=== PATIENT | female | born 1945 | race Caucasian/White ===

== ENCOUNTER 2016-11-05 12:56 | Outpatient (CLI) | payer MEDICARE, MEDICAID ==
[2016-11-05 17:59] LABS: BASOPHILS # (AUTO) 0.2 10^3/uL (0.0-0.1); BASOPHILS % (AUTO) 2.5 %; EOSINOPHILS # (AUTO) 0.7 10^3/uL (0.0-0.7); EOSINOPHILS % (AUTO) 8.9 %; HCT - HEMATOCRIT 39.8 % (37.0-47.0); HGB - HEMOGLOBIN 13.1 g/dL (12.0-16.0); LYMPHOCYTES # (AUTO) 2.1 10^3/uL (1.5-3.5); LYMPHOCYTES % (AUTO) 27.1 %; MEAN CORPUSCULAR HEMOGLOBIN 27.8 pg (27.0-31.0); MEAN CORPUSCULAR VOLUME 84.2 fL (81.0-99.0); MEAN PLATELET VOLUME 8.2 fL (7.9-10.8); MONOCYTES # (AUTO) 0.7 10^3/uL (0.0-1.0); NEUTROPHILS # (AUTO) 4.1 10^3/uL (1.5-6.6); NEUTROPHILS % (AUTO) 52.5 %; RED BLOOD COUNT 4.72 10^6/uL (4.20-5.40); RED CELL DISTRIBUTION WIDTH 15.6 % (12.0-15.0); UNCORRECTED WHITE BLOOD COUNT 7.7 x10^3/uL; WHITE BLOOD COUNT 7.7 x10^3/uL (4.8-10.8)
[2016-11-05 18:13] LABS: BILIRUBIN,TOTAL 0.7 mg/dL (0.2-1.0); BUN - BLOOD UREA NITROGEN 32 mg/dL (6-20); CALCIUM 9.3 mg/dL (8.5-10.3); CARBON DIOXIDE - CO2 27 mmol/L (21-32); CHLORIDE 102 mmol/L (101-111); CHOL/HDL RATIO 3.2 (<4.4); CHOLESTEROL 176 mg/dL; CREATININE 1.3 mg/dL (0.4-1.0); GFR - MDRD 40 (>89); GLUCOSE 100 mg/dL (70-100); HDL CHOLESTEROL 55 mg/dL; LDL/HDL RATIO 1.6 (<4.4); POTASSIUM 4.2 mmol/L (3.5-5.0); SODIUM 138 mmol/L (135-145); TOTAL PROTEIN 7.1 g/dL (6.7-8.2); TRIGLYCERIDES 165 mg/dL; URIC ACID 7.3 mg/dL (2.6-7.2); VLDL CHOLESTEROL 33 mg/dL
[2016-11-05 18:31] LABS: HEMOGLOBIN A1C 0.72 g/dL
== END 2016-11-05 12:57 | disposition home or self-care (01) ==
LOC: LAB.F 12:56
PROVIDERS: ATTEND Internal Medicine
DX: E11.9 Type 2 diabetes mellitus without complications (principal); N20.0 Calculus of kidney; Z79.01 Long term (current) use of anticoagulants
CPT/HCPCS: 36415; 80053; 80061; 83036; 84443; 84550; 85025; 85610

== ENCOUNTER 2016-11-12 14:53 | Outpatient (CLI) | payer MEDICARE, MEDICAID | END 2016-11-12 14:54 | disposition home or self-care (01) | LOC: LAB.F 14:53 | PROVIDERS: ATTEND Internal Medicine | DX: Z79.01 Long term (current) use of anticoagulants (principal) | CPT/HCPCS: 85610 ==

== ENCOUNTER 2016-12-12 14:09 | Outpatient (CLI) | payer MEDICARE, MEDICAID ==
[2016-12-12 18:53] LABS: BUN - BLOOD UREA NITROGEN 43 mg/dL (6-20); CALCIUM 9.4 mg/dL (8.5-10.3); CARBON DIOXIDE - CO2 23 mmol/L (21-32); CHLORIDE 109 mmol/L (101-111); CHOL/HDL RATIO 3.8 (<4.4); CHOLESTEROL 204 mg/dL; CREATININE 1.3 mg/dL (0.4-1.0); GFR - MDRD 40 (>89); GLUCOSE 114 mg/dL (70-100); HDL CHOLESTEROL 54 mg/dL; LDL/HDL RATIO 1.9 (<4.4); POTASSIUM 4.2 mmol/L (3.5-5.0); SODIUM 139 mmol/L (135-145); TRIGLYCERIDES 234 mg/dL; URIC ACID 5.7 mg/dL (2.6-7.2); VLDL CHOLESTEROL 47 mg/dL
== END 2016-12-12 14:10 | disposition home or self-care (01) ==
LOC: LAB.F 14:09
PROVIDERS: ATTEND Internal Medicine
DX: N18.3 Chronic kidney disease, stage 3 (moderate) (principal); Z79.01 Long term (current) use of anticoagulants; E78.00 Pure hypercholesterolemia, unspecified; E55.9 Vitamin D deficiency, unspecified; E53.8 Deficiency of other specified B group vitamins; N20.0 Calculus of kidney
CPT/HCPCS: 36415; 80048; 80061; 82306; 82607; 84550; 85610

== ENCOUNTER 2016-12-22 12:46 | Outpatient (CLI) | payer MEDICARE, MEDICAID | END 2016-12-22 12:47 | disposition home or self-care (01) | LOC: LAB.F 12:46 | PROVIDERS: ATTEND Internal Medicine | DX: Z79.01 Long term (current) use of anticoagulants (principal) | CPT/HCPCS: 85610 ==

== ENCOUNTER 2017-01-12 14:18 | Outpatient (CLI) | payer MEDICARE, MEDICAID ==
[2017-01-12 19:15] LABS: CALCIUM 9.1 mg/dL (8.5-10.3); CREATININE 1.2 mg/dL (0.4-1.0); POTASSIUM 4.1 mmol/L (3.5-5.0); URIC ACID 4.1 mg/dL (2.6-7.2)
[2017-01-12 19:27] LABS: HEMOGLOBIN A1C 0.8 g/dL
== END 2017-01-12 14:19 | disposition home or self-care (01) ==
LOC: LAB.F 14:18
PROVIDERS: ATTEND Internal Medicine
DX: I10 Essential (primary) hypertension (principal); Z79.01 Long term (current) use of anticoagulants; E11.9 Type 2 diabetes mellitus without complications; N20.0 Calculus of kidney
CPT/HCPCS: 36415; 80048; 83036; 84550; 85610

== ENCOUNTER 2017-02-16 14:03 | Outpatient (CLI) | payer MEDICARE, MEDICAID | END 2017-02-16 14:04 | disposition home or self-care (01) | LOC: LAB.F 14:03 | PROVIDERS: ATTEND Internal Medicine | DX: N20.0 Calculus of kidney (principal); Z79.01 Long term (current) use of anticoagulants | CPT/HCPCS: 36415; 84550; 85610 ==

== ENCOUNTER 2017-03-23 13:39 | Outpatient (CLI) | payer MEDICARE, MEDICAID ==
[2017-03-23 18:30] LABS: INR 6.9 (0.8-1.2)
== END 2017-03-23 13:40 | disposition home or self-care (01) ==
LOC: LAB.F 13:39
PROVIDERS: ATTEND Physician Assistant Medical
DX: I48.91 Unspecified atrial fibrillation (principal); Z79.01 Long term (current) use of anticoagulants
CPT/HCPCS: 36415; 85610

== ENCOUNTER 2017-03-27 13:59 | Outpatient (CLI) | payer MEDICARE, MEDICAID | END 2017-03-27 14:00 | disposition home or self-care (01) | LOC: LAB.F 13:59 | PROVIDERS: ATTEND Physician Assistant Medical | DX: I48.91 Unspecified atrial fibrillation (principal); Z79.01 Long term (current) use of anticoagulants | CPT/HCPCS: 85610 ==

== ENCOUNTER 2017-04-01 12:41 | Outpatient (CLI) | payer MEDICARE, MEDICAID | END 2017-04-01 12:42 | disposition home or self-care (01) | LOC: LAB.F 12:41 | PROVIDERS: ATTEND Physician Assistant Medical | DX: I48.91 Unspecified atrial fibrillation (principal); Z79.01 Long term (current) use of anticoagulants | CPT/HCPCS: 85610 ==

== ENCOUNTER 2017-04-06 12:46 | Outpatient (CLI) | payer MEDICARE, MEDICAID | END 2017-04-06 12:47 | disposition home or self-care (01) | LOC: LAB.F 12:46 | PROVIDERS: ATTEND Physician Assistant Medical | DX: I48.91 Unspecified atrial fibrillation (principal); Z79.01 Long term (current) use of anticoagulants | CPT/HCPCS: 85610 ==

== ENCOUNTER 2017-04-10 12:57 | Outpatient (CLI) | payer MEDICARE, MEDICAID | END 2017-04-10 12:58 | disposition home or self-care (01) | LOC: LAB.F 12:57 | PROVIDERS: ATTEND Physician Assistant Medical | DX: I48.91 Unspecified atrial fibrillation (principal); Z79.01 Long term (current) use of anticoagulants | CPT/HCPCS: 85610 ==

== ENCOUNTER 2017-04-30 13:35 | Outpatient (CLI) | payer MEDICARE, MEDICAID | END 2017-04-30 13:36 | disposition home or self-care (01) | LOC: LAB.F 13:35 | PROVIDERS: ATTEND Physician Assistant Medical | DX: I48.91 Unspecified atrial fibrillation (principal); Z79.01 Long term (current) use of anticoagulants | CPT/HCPCS: 85610 ==

== ENCOUNTER 2017-05-11 13:30 | Outpatient (CLI) | payer MEDICAID, MEDICARE | END 2017-05-11 13:31 | disposition home or self-care (01) | LOC: LAB.F 13:30 | PROVIDERS: ATTEND Physician Assistant Medical | DX: I48.91 Unspecified atrial fibrillation (principal); Z79.01 Long term (current) use of anticoagulants | CPT/HCPCS: 85610 ==

== ENCOUNTER 2017-06-11 12:25 | Outpatient (CLI) | payer MEDICARE | END 2017-06-11 12:26 | disposition home or self-care (01) | LOC: LAB.F 12:25 | PROVIDERS: ATTEND Physician Assistant Medical | DX: Z79.01 Long term (current) use of anticoagulants (principal); I48.91 Unspecified atrial fibrillation | CPT/HCPCS: 85610 ==

== ENCOUNTER 2017-06-24 14:30 | Outpatient (CLI) | payer MEDICARE ==
[2017-06-24 17:20] LABS: BILIRUBIN,URINE NEGATIVE (NEGATIVE); GLUCOSE, URINE (UA) NEGATIVE (NEGATIVE); KETONES,URINE (UA) NEGATIVE (NEGATIVE); LEUKOCYTE ESTERASE, URINE SMALL (NEGATIVE); NITRITE,URINE POSITIVE (NEGATIVE); OCCULT BLOOD,URINE TRACE-LYSE (NEGATIVE); PH,URINE 5.5 PH (5.0-7.5); PROTEIN,URINE 30 mg/dL (NEGATIVE); UROBILINOGEN,URINE 0.2 (NORMAL) E.U./dL (NORMAL)
[2017-06-24 17:23] LABS: CLARITY,URINE CLEAR (CLEAR)
[2017-06-24 17:34] LABS: BACTERIA,URINE Moderate /HPF (None Seen); EPITHELIAL CELLS,UR FEW Transitional /HPF (<= Few); RBC,URINE 0-5 /HPF (0-5); SQUAMOUS EPITHELIAL CELL,UR MOD Squamous (<= Few); WBC CLUMPS,URINE PRESENT
[2017-06-24 18:13] LABS: CREATININE,URINE 98.3 mg/dL; MICROALBUM/CREATININE RATIO,UR 362.2 ug/mg (<30.0); MICROALBUMIN,URINE 35.6 mg/dL (0-300.0)
== END 2017-06-24 14:31 | disposition home or self-care (01) ==
LOC: LAB.R 14:30
PROVIDERS: ATTEND Physician Assistant Medical
DX: N39.0 Urinary tract infection, site not specified (principal); E11.9 Type 2 diabetes mellitus without complications
CPT/HCPCS: 81001; 82043; 82570; 87086

== ENCOUNTER 2017-07-09 14:48 | Outpatient (CLI) | payer MEDICARE ==
[2017-07-09 17:40] LABS: CALCIUM 9.8 mg/dL (8.5-10.3); CREATININE 1.5 mg/dL (0.4-1.0)
[2017-07-09 18:28] LABS: HB2 TOTAL 13.7 g/dL; HEMOGLOBIN A1C 0.92 g/dL; HEMOGLOBIN A1C % 8.3 % (4.6-6.2)
== END 2017-07-09 14:49 | disposition home or self-care (01) ==
LOC: LAB.F 14:48
PROVIDERS: ATTEND Physician Assistant Medical
DX: I48.91 Unspecified atrial fibrillation (principal); Z79.01 Long term (current) use of anticoagulants; E11.22 Type 2 diabetes mellitus with diabetic chronic kidney disease; N18.3 Chronic kidney disease, stage 3 (moderate); N39.0 Urinary tract infection, site not specified
CPT/HCPCS: 36415; 80048; 81001; 82043; 82570; 83036; 85610; 87086

== ENCOUNTER 2017-07-10 13:19 | Outpatient (CLI) | payer MEDICARE ==
[2017-07-10 17:21] LABS: BILIRUBIN,URINE NEGATIVE (NEGATIVE); GLUCOSE, URINE (UA) NEGATIVE (NEGATIVE); KETONES,URINE (UA) NEGATIVE (NEGATIVE); LEUKOCYTE ESTERASE, URINE SMALL (NEGATIVE); NITRITE,URINE POSITIVE (NEGATIVE); OCCULT BLOOD,URINE NEGATIVE (NEGATIVE); PH,URINE 5.5 PH (5.0-7.5); PROTEIN,URINE 30 mg/dL (NEGATIVE); UROBILINOGEN,URINE 0.2 (NORMAL) E.U./dL (NORMAL)
[2017-07-10 17:27] LABS: CLARITY,URINE HAZY (CLEAR)
[2017-07-10 17:39] LABS: BACTERIA,URINE Moderate /HPF (None Seen); RBC,URINE None Seen /HPF (0-5); SQUAMOUS EPITHELIAL CELL,UR FEW Squamous (<= Few)
== END 2017-07-10 13:20 | disposition home or self-care (01) ==
LOC: LAB.F 13:19
PROVIDERS: ATTEND Physician Assistant Medical
DX: N39.0 Urinary tract infection, site not specified (principal)
CPT/HCPCS: 81001; 87086

== ENCOUNTER 2017-07-16 14:34 | Outpatient (CLI) | payer MEDICARE | END 2017-07-16 14:35 | disposition home or self-care (01) | LOC: LAB.F 14:34 | PROVIDERS: ATTEND Physician Assistant Medical | DX: I48.91 Unspecified atrial fibrillation (principal); Z79.01 Long term (current) use of anticoagulants | CPT/HCPCS: 85610 ==

== ENCOUNTER 2017-07-23 10:07 | Outpatient (CLI) | payer MEDICARE | END 2017-07-23 10:08 | disposition home or self-care (01) | LOC: LAB.F 10:07 | PROVIDERS: ATTEND Physician Assistant Medical | DX: I48.91 Unspecified atrial fibrillation (principal); Z79.01 Long term (current) use of anticoagulants | CPT/HCPCS: 85610 ==

== ENCOUNTER 2017-08-05 14:38 | Outpatient (CLI) | payer MEDICARE | END 2017-08-05 14:39 | disposition home or self-care (01) | LOC: LAB.F 14:38 | PROVIDERS: ATTEND Physician Assistant Medical | DX: I48.91 Unspecified atrial fibrillation (principal); Z79.01 Long term (current) use of anticoagulants | CPT/HCPCS: 85610 ==

== ENCOUNTER 2017-09-10 13:32 | Outpatient (CLI) | payer MEDICAID, MEDICARE ==
[2017-09-10 18:48] LABS: HB2 TOTAL 12.4 g/dL; HEMOGLOBIN A1C 0.81 g/dL; HEMOGLOBIN A1C % 8.1 % (4.6-6.2)
== END 2017-09-10 13:33 | disposition home or self-care (01) ==
LOC: LAB.F 13:32
PROVIDERS: ATTEND Physician Assistant Medical
DX: I48.91 Unspecified atrial fibrillation (principal); E11.49 Type 2 diabetes mellitus with other diabetic neurological complication; Z79.01 Long term (current) use of anticoagulants
CPT/HCPCS: 36415; 83036; 85610

== ENCOUNTER 2017-10-01 06:09 | Day surgery (SDC) | payer MEDICARE, MEDICAID ==
[2017-10-01] MEDS ORDERED: TIMOLOL 0.5% OPHTH DROPS EACHEYE ONE (06:10)
[2017-10-01] MEDS ORDERED: BRIMONIDINE 0.2% OPHTH DROPS 5 ML EACHEYE ONE (06:10)
[2017-10-01] MEDS ORDERED: CYCLOPENTOLATE 1% OPHTH DROPS 2 ML ONE (06:41)
[2017-10-01] MEDS ORDERED: PHENYLEPHRINE 2.5% OPHTH 2 ML DROPS ONE (06:41)
[2017-10-01] MEDS ORDERED: PROPARACAINE 0.5% OPHTH DROPS 15 ML ONE (06:41)
[2017-10-01] MEDS ORDERED: KETOROLAC 0.45% OPHTH DROPS ONE (06:41)
[2017-10-01] MEDS ORDERED: LACTATED RINGERS 500 ML IV ONE (07:07)
[2017-10-01] MEDS ORDERED: EPINEPHrine 1 MG/ML AMP ONE (07:28)
[2017-10-01] MEDS ORDERED: EPINEPHrine 1 MG/ML AMP IVP ONE (07:37)
[2017-10-01] MEDS ORDERED: BRIMONIDINE 0.2% OPHTH DROPS 5 ML OPTH ONE (07:37)
[2017-10-01] MEDS ORDERED: TRIAMCIN/MOXIFLOX/VANCO 1 ML VIAL IO ONE ×2 (07:38)
[2017-10-01] MEDS ORDERED: BSS/LIDOCAINE/EPINEPHRINE 1 ML SYRINGE IO ONE ×2 (07:38)
[2017-10-01] MEDS ORDERED: CHONDR SULF/HYALURONATE SYRINGE IO ONE (07:38)
[2017-10-01] MEDS ORDERED: TIMOLOL 0.5% OPHTH DROPS OPTH ONE (07:38)
[2017-10-01] MEDS ORDERED: PROPARACAINE 0.5% OPHTH DROPS 15 ML RIGHTEYE ONE (07:39)
[2017-10-01] MEDS ORDERED: MIDAZOLAM 2 MG/2 ML VIAL IVP ONE (07:40)
[2017-10-01 08:11] VITALS: BP 164/61
--- NOTE | 2017-10-01 10:06 | OPERATIVE REPORT ---
DATE OF SERVICE: 10/01/2017 Physician: Luigi Sin MD PREOPERATIVE DIAGNOSIS: Visually significant cataract, right eye. This was her first cataract surgery. POSTOPERATIVE DIAGNOSIS: Visually significant cataract, right eye. This was her first cataract surgery. NAME OF PROCEDURE: Phacoemulsification with posterior chamber intraocular lens implant, right eye. SURGEON: Luigi Sin M.D. ANESTHESIA: Monitored anesthesia care. COMPLICATIONS: None. OPERATIVE INDICATIONS: This is a 72-year-old woman with progressive vision loss in the right eye due to 3+ nuclear sclerotic and vacuole cataract. Best corrected visual acuity was 20/125 with glare to 20/160 in the right eye. INDICATIONS FOR SURGERY: Overall decrease in vision, difficulty seeing words on a computer screens, difficulty reading, difficulty seeing street signs, difficulty driving in low light or at night, difficulty driving at night because of headlights from other vehicles. She was consented at length concerning risks and benefits of cataract surgery, after which she expressed a desire to proceed with surgery. OPERATIVE PROCEDURE: The patient was taken to OR #3 and placed under monitored anesthesia care. A surgical timeout was conducted confirming correct patient, correct procedure, and correct surgical site. She was given topical anesthesia, and prepped and draped in usual sterile fashion. The eye was entered at the 12 and 9 o'clock positions. Intracameral Shugarcaine was injected into the anterior chamber, followed by Viscoat. A continuous-tear curvilinear capsulorrhexis was performed. Nucleus was hydrodissected and phacoemulsified. The cortex was evacuated using automated infusion aspiration. Provisc was injected in the capsular bag, and a 26.0 diopter intraocular lens was inserted into the bag. Approximately 0.7 mL of a mixture of triamcinolone and moxifloxacin was injected subconjunctivally in the superior quadrant for infection and inflammation prophylaxis. I and A was used to evacuate the viscoelastic materials. The eye was inflated to physiologic pressure using balanced salt solution and found to be watertight. The patient was taken from the operating room in good condition and given postoperative instructions. TD: 10/01/2017 08:07
== END 2017-10-01 06:10 | disposition home or self-care (01) ==
LOC: SDS 06:09
PROVIDERS: ATTEND Ophthalmology
PROC: 08RJ3JZ Replacement of Right Lens with Synthetic Substitute, Percutaneous Approach (ICD-10-PCS; principal; 2017-10-01 07:30)
DX: H25.811 Combined forms of age-related cataract, right eye (principal); E11.9 Type 2 diabetes mellitus without complications; I10 Essential (primary) hypertension; I48.91 Unspecified atrial fibrillation; J44.9 Chronic obstructive pulmonary disease, unspecified; Z79.01 Long term (current) use of anticoagulants; Z87.442 Personal history of urinary calculi; F01.50 Vascular dementia, unspecified severity, without behavioral disturbance, psychotic disturbance, mood disturbance, and anxiety
CPT/HCPCS: 66984; A9270; J3490; V2632

== ENCOUNTER 2017-10-15 08:00 | Outpatient (CLI) | payer MEDICAID, MEDICARE | END 2017-10-15 08:01 | disposition home or self-care (01) | LOC: LAB.F 08:00 | PROVIDERS: ATTEND Physician Assistant Medical | DX: I48.91 Unspecified atrial fibrillation (principal); Z79.01 Long term (current) use of anticoagulants | CPT/HCPCS: 85610 ==

== ENCOUNTER 2017-11-09 14:30 | Outpatient (CLI) | payer MEDICARE, MEDICAID | END 2017-11-09 14:31 | disposition home or self-care (01) | LOC: LAB.F 14:30 | PROVIDERS: ATTEND Physician Assistant Medical | DX: I48.91 Unspecified atrial fibrillation (principal); Z79.01 Long term (current) use of anticoagulants | CPT/HCPCS: 85610 ==

== ENCOUNTER 2017-11-19 07:22 | Day surgery (SDC) | payer MEDICARE, MEDICAID ==
[~2017-11-19 07:22] MED LIST: CYCLOPENTOLATE 1% OPHTH DROPS 2 ML ONE; KETOROLAC 0.45% OPHTH DROPS ONE; PHENYLEPHRINE 2.5% OPHTH 2 ML DROPS ONE; PROPARACAINE 0.5% OPHTH DROPS 15 ML ONE
[2017-11-19] MEDS ORDERED: TIMOLOL 0.5% OPHTH DROPS ONE (07:24)
[2017-11-19] MEDS ORDERED: VANCOMYCIN OPHTHALMI 8MG/0.8ML 8 MG/0.8 ML SYRINGE IO ONE (07:24)
[2017-11-19] MEDS ORDERED: BRIMONIDINE 0.2% OPHTH DROPS 5 ML ONE (07:24)
[2017-11-19] MEDS ORDERED: EPINEPHrine 1 MG/ML AMP ONE (07:24)
[2017-11-19] MEDS ORDERED: BSS/LIDOCAINE/EPINEPHRINE 1 ML SYRINGE ONE (07:24)
[2017-11-19] MEDS ORDERED: TRIAMCIN/MOXIFLOX OPHTHALMIC 0.6 ML VIAL IO ONE (07:24)
[2017-11-19] MEDS ORDERED: PHENYLEPHRINE 2.5% OPHTH 2 ML DROPS LEFTEYE ONE ×2 (07:51→08:05)
[2017-11-19] MEDS ORDERED: PROPARACAINE 0.5% OPHTH DROPS 15 ML LEFTEYE ONE ×3 (07:51→08:38)
[2017-11-19] MEDS ORDERED: LACTATED RINGERS 500 ML IV ONE ×2 (07:51)
[2017-11-19] MEDS ORDERED: CYCLOPENTOLATE 1% OPHTH DROPS 2 ML LEFTEYE ONE ×2 (07:51→08:05)
[2017-11-19] MEDS ORDERED: KETOROLAC 0.45% OPHTH DROPS LEFTEYE ONE ×2 (07:51→08:05)
[2017-11-19] MEDS ORDERED: BRIMONIDINE 0.2% OPHTH DROPS 5 ML OPTH ONE (08:36)
[2017-11-19] MEDS ORDERED: EPINEPHrine 1 MG/ML AMP IR ONE (08:36)
[2017-11-19] MEDS ORDERED: TIMOLOL 0.5% OPHTH DROPS OPTH ONE (08:37)
[2017-11-19] MEDS ORDERED: CHONDR SULF/HYALURONATE SYRINGE IO ONE (08:37)
[2017-11-19] MEDS ORDERED: BSS/LIDOCAINE/EPINEPHRINE 1 ML SYRINGE IO ONE ×2 (08:37)
[2017-11-19] MEDS ORDERED: MIDAZOLAM 2 MG/2 ML VIAL IVP ONE (08:51)
[2017-11-19 09:00] VITALS: BP 115/58
--- NOTE | 2017-11-19 09:40 | OPERATIVE REPORT ---
DATE OF SERVICE: 11/19/2017 Physician: Luigi Sin MD PREOPERATIVE DIAGNOSIS: Visually significant cataract, left eye. Cataract surgery was performed on the right eye on 10/01/2017. POSTOPERATIVE DIAGNOSIS: Visually significant cataract, left eye. Cataract surgery was performed on the right eye on 10/01/2017. PROCEDURE: Phacoemulsification with posterior chamber intraocular lens implant, left eye. SURGEON: Luigi Sin MD ANESTHESIA: Monitored anesthesia care. COMPLICATIONS: None. OPERATIVE INDICATIONS: This is a 72-year-old woman with progressive vision loss in the left eye due to 2-3+ nuclear sclerotic cataract. Best corrected visual acuity was 20/30, with glare to 20/40 in the left eye. INDICATIONS FOR SURGERY: Overall decrease in vision, difficulty seeing words on the computer screen, difficulty reading, difficulty seeing words, closed captions and game scores on TV, difficulty seeing street signs, difficulty driving low later at night, difficulty driving at night because of head lights from other vehicles, and difficulty with glare or bright lights in a situation. She was consented at length concerning the risks and benefits of cataract surgery, after which she expressed a desire to proceed with surgery. OPERATIVE PROCEDURE: The patient was taken to OR #3 and placed on monitored anesthesia care. Surgical timeout was conducted confirming correct patient, correct procedure, and correct surgical site. She was given topical anesthesia, and prepped and draped in the usual sterile fashion. The eye was entered at the 6 and 3 o'clock positions. Intracameral Shugarcaine was injected into the anterior chamber, followed by Viscoat. A continuous-tear curvilinear capsulorrhexis was performed. The nucleus was hydrodissected and phacoemulsified. The cortex was evacuated using automated infusion and aspiration. Provisc was injected in the capsular bag, and a 27.5 diopter intraocular lens was inserted into the bag. Approximately 0.8 mL with a mixture of triamcinolone, moxifloxacin, and vancomycin was injected subconjunctivally in the superior quadrant for infection and inflammation prophylaxis. I and A was used to evacuate the viscoelastic material. The eye was inflated to physiologic pressure using balanced salt solution, and found to be watertight. The patient was taken from the operating room in good condition and given postoperative instructions. TD: 11/19/2017 09:03
== END 2017-11-19 07:23 | disposition home or self-care (01) ==
LOC: SDS 07:22
PROVIDERS: ATTEND Ophthalmology
PROC: 08RK3JZ Replacement of Left Lens with Synthetic Substitute, Percutaneous Approach (ICD-10-PCS; principal; 2017-11-19 08:00)
DX: H25.12 Age-related nuclear cataract, left eye (principal); E11.9 Type 2 diabetes mellitus without complications; I48.91 Unspecified atrial fibrillation; I10 Essential (primary) hypertension; J43.9 Emphysema, unspecified; E66.9 Obesity, unspecified; Z87.891 Personal history of nicotine dependence; Z79.01 Long term (current) use of anticoagulants; Z79.899 Other long term (current) drug therapy; Z79.4 Long term (current) use of insulin; Z98.41 Cataract extraction status, right eye
CPT/HCPCS: 66984; A9270; J3490; V2632

== ENCOUNTER 2017-11-24 15:35 | Outpatient (CLI) | payer MEDICAID, MEDICARE | END 2017-11-24 15:36 | disposition home or self-care (01) | LOC: LAB.F 15:35 | PROVIDERS: ATTEND Physician Assistant Medical | DX: I48.91 Unspecified atrial fibrillation (principal); Z79.01 Long term (current) use of anticoagulants | CPT/HCPCS: 85610 ==

== ENCOUNTER 2017-12-09 08:00 | Outpatient (CLI) | payer MEDICARE | END 2017-12-09 08:01 | disposition home or self-care (01) | LOC: LAB.R 08:00 | PROVIDERS: ATTEND Physician Assistant Medical | DX: R82.90 Unspecified abnormal findings in urine (principal); N39.0 Urinary tract infection, site not specified; Z79.01 Long term (current) use of anticoagulants; R35.0 Frequency of micturition; I48.91 Unspecified atrial fibrillation | CPT/HCPCS: 87086 ==

== ENCOUNTER 2017-12-09 14:56 | Outpatient (CLI) | payer MEDICARE | END 2017-12-09 14:57 | disposition home or self-care (01) | LOC: LAB.F 14:56 | PROVIDERS: ATTEND Physician Assistant Medical | DX: Z79.01 Long term (current) use of anticoagulants (principal); R82.90 Unspecified abnormal findings in urine; R35.0 Frequency of micturition; N39.0 Urinary tract infection, site not specified; I48.91 Unspecified atrial fibrillation | CPT/HCPCS: 85610; 87086; 87181 ==

== ENCOUNTER 2017-12-24 14:58 | Outpatient (CLI) | payer MEDICARE | END 2017-12-24 14:59 | disposition home or self-care (01) | LOC: LAB.R 14:58 | PROVIDERS: ATTEND Family Medicine | DX: N39.0 Urinary tract infection, site not specified (principal) | CPT/HCPCS: 87086 ==

== ENCOUNTER 2017-12-24 15:11 | Outpatient (CLI) | payer MEDICARE ==
[2017-12-24 17:25] LABS: BASOPHILS # (AUTO) 0.1 10^3/uL (0.0-0.1); BASOPHILS % (AUTO) 1.3 %; EOSINOPHILS # (AUTO) 0.3 10^3/uL (0.0-0.7); EOSINOPHILS % (AUTO) 3.6 %; HGB - HEMOGLOBIN 13.4 g/dL (12.0-16.0); LYMPHOCYTES # (AUTO) 1.9 10^3/uL (1.5-3.5); LYMPHOCYTES % (AUTO) 20.4 %; MEAN CORPUSCULAR HGB CONC 33.9 g/dL (32.0-36.0); MEAN CORPUSCULAR VOLUME 88.4 fL (81.0-99.0); MEAN PLATELET VOLUME 7.9 fL (7.9-10.8); MONOCYTES # (AUTO) 0.9 10^3/uL (0.0-1.0); NEUTROPHILS % (AUTO) 64.7 %; PLT - PLATELET COUNT 353 10^3/uL (130-450); RED BLOOD COUNT 4.46 10^6/uL (4.20-5.40); RED CELL DISTRIBUTION WIDTH 14.1 % (12.0-15.0); WHITE BLOOD COUNT 9.2 x10^3/uL (4.8-10.8)
[2017-12-24 17:52] LABS: ALBUMIN 3.8 g/dL (3.2-5.5); BILIRUBIN,TOTAL 0.8 mg/dL (0.2-1.0); CALCIUM 9.7 mg/dL (8.5-10.3); CREATININE 1.4 mg/dL (0.4-1.0); MAGNESIUM 1.9 mg/dL (1.7-2.8); PHOSPHORUS 3.9 mg/dL (2.5-4.6); TOTAL PROTEIN 7.5 g/dL (6.7-8.2)
== END 2017-12-24 15:12 | disposition home or self-care (01) ==
LOC: LAB.F 15:11
PROVIDERS: ATTEND Family Medicine
DX: R19.7 Diarrhea, unspecified (principal); I12.9 Hypertensive chronic kidney disease with stage 1 through stage 4 chronic kidney disease, or unspecified chronic kidney disease; N18.3 Chronic kidney disease, stage 3 (moderate); E11.49 Type 2 diabetes mellitus with other diabetic neurological complication; N39.0 Urinary tract infection, site not specified
CPT/HCPCS: 36415; 80053; 83735; 84100; 85025; 87086

== ENCOUNTER → 2018-01-04 | Outpatient (CLI) | payer MEDICARE ==
[2018-01-05 20:58] LABS: H. PYLORIS ANTIGEN STL NEGATIVE (Negative)
== END ==
LOC: LAB 08:00
PROVIDERS: ATTEND Family Medicine
DX: R19.7 Diarrhea, unspecified (principal)
CPT/HCPCS: 82270; 83630; 87045; 87046; 87177; 87209; 87338; 87493

== ENCOUNTER 2018-01-05 13:12 | Outpatient (CLI) | payer MEDICARE ==
[2018-01-05 20:58] LABS: H. PYLORIS ANTIGEN STL NEGATIVE (Negative)
== END 2018-01-05 13:13 | disposition home or self-care (01) ==
LOC: LAB.F 13:12
PROVIDERS: ATTEND Physician Assistant Medical
DX: I48.91 Unspecified atrial fibrillation (principal); Z79.01 Long term (current) use of anticoagulants
CPT/HCPCS: 36415; 80048; 82043; 82270; 83036; 83630; 85610; 87045; 87046; 87177; 87209; 87338; 87493

== ENCOUNTER 2018-02-10 13:19 | Outpatient (CLI) | payer MEDICARE | END 2018-02-10 13:20 | disposition home or self-care (01) | LOC: LAB.F 13:19 | PROVIDERS: ATTEND Physician Assistant Medical | DX: Z79.01 Long term (current) use of anticoagulants (principal); I48.91 Unspecified atrial fibrillation | CPT/HCPCS: 85610 ==

== ENCOUNTER 2018-02-24 13:38 | Outpatient (CLI) | payer MEDICARE | END 2018-02-24 13:39 | disposition home or self-care (01) | LOC: LAB.F 13:38 | PROVIDERS: ATTEND Physician Assistant Medical | DX: I48.91 Unspecified atrial fibrillation (principal); Z79.01 Long term (current) use of anticoagulants | CPT/HCPCS: 85610 ==

== ENCOUNTER 2018-03-23 14:00 | Outpatient (CLI) | payer MEDICARE | END 2018-03-23 14:01 | disposition home or self-care (01) | LOC: LAB.R 14:00 | PROVIDERS: ATTEND Internal Medicine | DX: N30.00 Acute cystitis without hematuria (principal) | CPT/HCPCS: 87086 ==

== ENCOUNTER 2018-03-23 14:44 | Outpatient (CLI) | payer MEDICARE | END 2018-03-23 14:45 | disposition home or self-care (01) | LOC: LAB.F 14:44 | PROVIDERS: ATTEND Physician Assistant Medical | DX: I48.91 Unspecified atrial fibrillation (principal); N20.0 Calculus of kidney; Z79.01 Long term (current) use of anticoagulants; N30.00 Acute cystitis without hematuria | CPT/HCPCS: 36415; 84550; 85610; 87086 ==

== ENCOUNTER 2018-03-24 16:38 | Emergency (ER) | payer MEDICARE ==
--- NOTE | 2018-03-24 16:57 | ED Physician Documentation ---
PD HPI UPPER EXT INJURY - Stated complaint Stated Complaint: RT ARM INJ/GLF - Chief complaint Chief Complaint: Trauma Hd/Nk - History obtained from History obtained from: Patient - History of Present Illness Location: Right, Forearm Type of injury: Fall (was getting in truck that has a step up, she slipped on the step due to muddy boots and fell backward onto buttock the to ground on her back. Struck right forearm on part of the truck on the way falling with pain complaint being right forearm/wrist pain. Has some mild pain right lateral neck muscles.) Timing - onset: How many hours ago (1), Today Timing - details: Abrupt onset, Still present Worsened by: Moving, Palpating (of the wrist) Associated symptoms: Swelling. No: Weakness, Numbness Contributing factors: Anticoagulated Similar symptoms before: Has not had sx before Recently seen: Clinic (yesterday for UTI symptoms and started on Macrobid. INR yesterday afternoon was 3.0) Review of Systems Constitutional: denies: Fever Eyes: denies: Decreased vision Nose: denies: Rhinorrhea / runny nose, Congestion Throat: denies: Sore throat Cardiac: denies: Chest pain / pressure Respiratory: denies: Cough GI: denies: Abdominal Pain : reports: Dysuria (for few days) Skin: reports: Abrasion (s) (right forearm). 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, Tubal ligation, Oophrectomy - Present Medications Home Medications: Ambulatory Orders Medication Instructions Recorded Confirmed Lisinopril 40 mg PO DAILY 04/03/16 03/24/18 Albuterol Sulf [Ventolin Hfa] 1 - 2 puffs INH Q4H PRN 10/01/17 03/24/18 Allopurinol 100 mg PO DAILY 10/01/17 03/24/18 Insulin Degludec [Tresiba 32 unit SUBQ DAILY 10/01/17 03/24/18 Flextouch U-100] Warfarin Sodium 6 mg PO DAILY 10/01/17 03/24/18 Warfarin Sodium 9 mg PO ONCE 10/01/17 03/24/18 amLODIPine [Norvasc] 5 mg PO DAILY 10/01/17 03/24/18 Cholecalciferol (Vitamin D3) 1,000 tab PO DAILY 11/19/17 03/24/18 [Vitamin D3] Multivitamin [Multiple Vitamins] 1 each PO DAILY 11/19/17 03/24/18 Nitrofurantoin Monohyd/M-Cryst 1 cap PO BID 03/24/18 03/24/18 [Macrobid 100 mg Capsule] - Allergies Allergies/Adverse Reactions: Allergies Allergy/AdvReac Type Severity Reaction Status Date / Time codeine Allergy Nausea Verified 03/24/18 16:48 - Social History Does the pt smoke?: No Smoking Status: Never smoker Does the pt drink ETOH?: No Does the pt have substance abuse?: No - Immunizations Immunizations are current?: Yes PD ED PE NORMAL - Vitals Vital signs reviewed: Yes - General General: Alert and oriented X 3, Well developed/nourished, Other (seems in mild pain due to wrist. Denies head pain.) - HEENT HEENT: Atraumatic, PERRL, EOMI, Ears normal - Neck Neck: No bony TTP (some mild tenderness right lateral muscles. ) - Cardiac Cardiac: RRR, No murmur - Respiratory Respiratory: Clear bilaterally - Abdomen Abdomen: Soft, Non tender - Derm Derm: Normal color, Warm and dry - Extremities Extremities: Other (right forearm with tenderness and swelling distal ulnar side, with abrasion but no laceration.) - Neuro Neuro: Alert and oriented X 3, practice physician 2-12 intact, No motor deficit, No sensory deficit, Normal speech Eye Opening: Spontaneous Motor: Obeys Commands Verbal: Oriented GCS Score: 15 - Psych Psych: Normal mood, Normal affect Results - Vitals Vitals: Vital Signs - 24 hr 03/24/18 16:46 Temperature 36 C L Heart Rate 77 Respiratory 18 Rate Blood Pressure 123/79 O2 Saturation 95 Oxygen O2 Source Room air Procedures - Splint (location) right forearm Splint applied by: Tech Type of splint: Ulnar gutter Other: Patient tolerated well, No complications, Neurovascular intact, Sling provided PD MEDICAL DECISION MAKING - ED course Complexity details: reviewed results (The forearm x-ray showed a fracture of the ulna but no injury to the radius. We will place a splint and give her a sling. She states she had her INR checked just yesterday it was 3.0 and requests deferring evaluation today. We discussed CT scan of the head because of her blood thinner and possibly of the neck given some pain though it is muscular pain on the right. She states she would want to not have any CT scans done at this time. Her granddaughter is with her and he is in on the discussion as well.), re-evaluated patient (Still no headache, blurred vision, confusion. She still has some pain to the right lateral neck area. We discussed further the idea of CT scan for head or neck and at this point the patient would prefer not to have the imaging. She is encouraged to return if any symptoms develop.), considered differential, d/w patient, d/w family Departure - Departure Disposition: Home, Self Care Clinical Impression: Anticoagulant long-term use Accidental fall Qualifiers: Encounter type: initial encounter Qualified Code(s): W19.XXXA - Unspecified fall, initial encounter Fracture of right ulna, shaft Qualifiers: Encounter type: initial encounter Fracture type: closed Fracture morphology: transverse Fracture alignment: nondisplaced Qualified Code(s): S52.224A - Nondisplaced transverse fracture of shaft of right ulna, initial encounter for closed fracture Neck muscle strain Qualifiers: Encounter type: initial encounter Qualified Code(s): S16.1XXA - Strain of muscle, fascia and tendon at neck level, initial encounter Condition: Stable Record reviewed to determine appropriate education?: Yes Instructions: ED Fx Forearm Radius Ulna No Redu Requ Follow-Up: Anne Soria PA-C [Primary Care Provider] - Agustín Jane MD [Provider Admit Priv/Credential] - Comments: Keep the splint on to protect the broken forearm. Use a sling to elevate and rested often to reduce swelling. Ice or cool towels to the area periodically today and tomorrow. Call Thursday to the orthopedic office for an appointment for next week for follow-up and re-splinting or casting as the current splint will be a little sloppy as the swelling goes down. Tylenol if needed for pains. Continue your other medications. Return to the ER or seek care if you develop headache, blurred vision, confusion, off balance, vomiting or other signs of head injury.
[2018-03-24] MEDS ORDERED: ACETAMINOPHEN 325 MG TABLET PO STA (17:11)
--- NOTE | 2018-03-24 17:32 | XRAY Report ---
Reason: fell and hurt right wrist/forearm Procedure Date: 03/24/2018 Accession Number: [id number] / [id number] Procedure: XR - Forearm RT CPT Code: FULL RESULT: EXAM: RIGHT FOREARM RADIOGRAPHY EXAM DATE: 03/24/2018 05:22 PM. CLINICAL HISTORY: Fell and hurt right wrist/forearm. COMPARISON: None. TECHNIQUE: 2 views. FINDINGS: Bones: There is a transverse fracture of the diaphysis of the ulna. No radius fracture. Joints: Alignment appears satisfactory. There is medial and lateral epicondyles spurring. Soft Tissues: Normal. No soft tissue swelling. IMPRESSION: 1. Fracture of the ulna diaphysis. RADIA
[2018-03-24 18:39] VITALS: BP 146/80
== END 2018-03-24 18:35 | disposition home or self-care (01) ==
LOC: ED 16:38
DX: S52.224A Nondisplaced transverse fracture of shaft of right ulna, initial encounter for closed fracture (principal); S16.1XXA Strain of muscle, fascia and tendon at neck level, initial encounter; I10 Essential (primary) hypertension; I48.91 Unspecified atrial fibrillation; Z79.01 Long term (current) use of anticoagulants; E11.9 Type 2 diabetes mellitus without complications; Z79.4 Long term (current) use of insulin; W01.198A Fall on same level from slipping, tripping and stumbling with subsequent striking against other object, initial encounter; V58.4XXA Person boarding or alighting a pick-up truck or van injured in noncollision transport accident, initial encounter; Y93.89 Activity, other specified
CPT/HCPCS: 29105; 73090; 99283; A9270

== ENCOUNTER 2018-03-31 13:57 | Outpatient (CLI) | payer MEDICARE | END 2018-03-31 13:58 | disposition home or self-care (01) | LOC: LAB.F 13:57 | PROVIDERS: ATTEND Internal Medicine | DX: I48.91 Unspecified atrial fibrillation (principal); Z79.01 Long term (current) use of anticoagulants | CPT/HCPCS: 85610 ==

== ENCOUNTER 2018-04-06 08:00 | Outpatient (CLI) | payer MEDICARE | END 2018-04-06 23:59 | disposition home or self-care (01) | LOC: LAB.F 08:00 | PROVIDERS: ATTEND Internal Medicine | DX: I48.91 Unspecified atrial fibrillation (principal); Z79.01 Long term (current) use of anticoagulants | CPT/HCPCS: 85610 ==

== ENCOUNTER 2018-04-07 10:26 | Outpatient (CLI) | payer MEDICARE ==
[2018-04-07 17:48] LABS: ALBUMIN 3.7 g/dL (3.2-5.5); ALKALINE PHOSPHATASE 70 IU/L (42-121); ALT ALANINE AMINOTRANSFERASE 24 IU/L (10-60); AST ASPARTATE AMINOTRANSFERASE 19 IU/L (10-42); BUN - BLOOD UREA NITROGEN 45 mg/dL (6-20); CALCIUM 9.7 mg/dL (8.5-10.3); CARBON DIOXIDE - CO2 26 mmol/L (21-32); CHLORIDE 101 mmol/L (101-111); CHOL/HDL RATIO 3.7 (<4.4); CHOLESTEROL 190 mg/dL; CREATININE 1.4 mg/dL (0.4-1.0); GFR - MDRD 37 (>89); GLUCOSE 172 mg/dL (70-100); HDL CHOLESTEROL 52 mg/dL; LDL CHOLESTEROL,CALCULATED 98 mg/dL; LDL/HDL RATIO 1.9 (<4.4); SODIUM 136 mmol/L (135-145); TOTAL PROTEIN 7.5 g/dL (6.7-8.2); URIC ACID 7.4 mg/dL (2.6-7.2); VLDL CHOLESTEROL 40 mg/dL
[2018-04-07 17:53] LABS: BASOPHILS # (AUTO) 0.1 10^3/uL (0.0-0.1); BASOPHILS % (AUTO) 1.3 %; EOSINOPHILS # (AUTO) 0.3 10^3/uL (0.0-0.7); EOSINOPHILS % (AUTO) 2.7 %; HGB - HEMOGLOBIN 13.3 g/dL (12.0-16.0); LYMPHOCYTES % (AUTO) 20.3 %; MEAN CORPUSCULAR HGB CONC 32.3 g/dL (32.0-36.0); MEAN CORPUSCULAR VOLUME 89.7 fL (81.0-99.0); MEAN PLATELET VOLUME 7.9 fL (7.9-10.8); MONOCYTES # (AUTO) 1.1 10^3/uL (0.0-1.0); MONOCYTES % (AUTO) 11.1 %; NEUTROPHILS # (AUTO) 6.5 10^3/uL (1.5-6.6); NEUTROPHILS % (AUTO) 64.6 %; PLT - PLATELET COUNT 391 10^3/uL (130-450); RED BLOOD COUNT 4.57 10^6/uL (4.20-5.40); RED CELL DISTRIBUTION WIDTH 14.2 % (12.0-15.0); WHITE BLOOD COUNT 10.1 x10^3/uL (4.8-10.8)
[2018-04-07 18:32] LABS: HB2 TOTAL 14.3 g/dL; HEMOGLOBIN A1C 0.99 g/dL; HEMOGLOBIN A1C % 8.5 % (4.6-6.2)
== END 2018-04-07 10:27 | disposition home or self-care (01) ==
LOC: LAB.F 10:26
PROVIDERS: ATTEND Registered Nurse
DX: I12.9 Hypertensive chronic kidney disease with stage 1 through stage 4 chronic kidney disease, or unspecified chronic kidney disease (principal); N18.3 Chronic kidney disease, stage 3 (moderate); E11.49 Type 2 diabetes mellitus with other diabetic neurological complication; N20.0 Calculus of kidney
CPT/HCPCS: 36415; 80053; 80061; 82043; 83036; 83721; 84443; 84550; 85025

== ENCOUNTER 2018-04-14 11:38 | Outpatient (CLI) | payer MEDICAID, MEDICARE | END 2018-04-14 23:59 | disposition home or self-care (01) | LOC: LAB.F 11:38 | PROVIDERS: ATTEND Internal Medicine | DX: I48.91 Unspecified atrial fibrillation (principal); Z79.01 Long term (current) use of anticoagulants | CPT/HCPCS: 85610 ==

== ENCOUNTER 2018-04-20 14:55 | Outpatient (CLI) | payer MEDICARE | END 2018-04-20 14:56 | disposition home or self-care (01) | LOC: LAB.F 14:55 | PROVIDERS: ATTEND Internal Medicine | DX: I48.91 Unspecified atrial fibrillation (principal); Z79.01 Long term (current) use of anticoagulants | CPT/HCPCS: 85610 ==

== ENCOUNTER 2018-05-03 14:15 | Outpatient (CLI) | payer MEDICARE | END 2018-05-03 14:16 | disposition home or self-care (01) | LOC: LAB.F 14:15 | PROVIDERS: ATTEND Internal Medicine | DX: Z79.01 Long term (current) use of anticoagulants (principal); I48.91 Unspecified atrial fibrillation | CPT/HCPCS: 85610 ==

== ENCOUNTER 2018-05-31 14:07 | Outpatient (CLI) | payer MEDICARE, MEDICAID | END 2018-05-31 14:08 | disposition home or self-care (01) | LOC: LAB.F 14:07 | PROVIDERS: ATTEND Internal Medicine | DX: Z79.01 Long term (current) use of anticoagulants (principal); I48.91 Unspecified atrial fibrillation | CPT/HCPCS: 85610 ==

== ENCOUNTER 2018-06-09 14:55 | Outpatient (CLI) | payer MEDICARE, MEDICAID | END 2018-06-09 14:56 | disposition home or self-care (01) | LOC: LAB.F 14:55 | PROVIDERS: ATTEND Internal Medicine | DX: Z79.01 Long term (current) use of anticoagulants (principal); I48.91 Unspecified atrial fibrillation | CPT/HCPCS: 85610 ==

== ENCOUNTER 2018-06-23 15:17 | Outpatient (CLI) | payer MEDICARE, MEDICAID | END 2018-06-23 15:18 | disposition home or self-care (01) | LOC: LAB.F 15:17 | PROVIDERS: ATTEND Internal Medicine | DX: I48.91 Unspecified atrial fibrillation (principal); Z79.01 Long term (current) use of anticoagulants | CPT/HCPCS: 85610 ==

== ENCOUNTER 2018-07-08 16:05 | Outpatient (CLI) | payer MEDICARE, MEDICAID | END 2018-07-08 16:06 | disposition critical access hospital (66) | LOC: EMS 16:05 | PROVIDERS: ATTEND Surgery | DX: S00.83XA Contusion of other part of head, initial encounter (principal); S60.512A Abrasion of left hand, initial encounter; W18.30XA Fall on same level, unspecified, initial encounter; Y92.89 Other specified places as the place of occurrence of the external cause | CPT/HCPCS: A0425; A0429 ==

== ENCOUNTER 2018-07-08 16:10 | Emergency (ER) | payer MEDICARE, MEDICAID ==
--- NOTE | 2018-07-08 16:13 | ED Physician Documentation ---
PD HPI HEAD INJURY - Stated complaint Stated Complaint: GLF - History obtained from History obtained from: Patient, EMS - History of Present Illness Mechanism of head injury: Fell (72-year-old woman on warfarin, has frequent falls. Her legs were cold and she kind of fell over the side hitting the left side of her head on the ground. There was no loss of consciousness and she denies headache or other injuries.) Review of Systems Constitutional: reports: Reviewed and negative Throat: reports: Reviewed and negative Cardiac: reports: Reviewed and negative PD PAST MEDICAL HISTORY - Past Medical History Cardiovascular: Hypertension, Atrial fibrillation Respiratory: COPD, Pneumonia Neuro: Peripheral neuropathy Endocrine/Autoimmune: Type 2 diabetes GI: GERD, Chronic diarrhea : Kidney stones HEENT: Chronic vision loss Psych: Anxiety Musculoskeletal: Osteoarthritis Derm: None - Past Surgical History Past Surgical History: No General: Cholecystectomy, 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, Tubal ligation, Oophrectomy - Present Medications Home Medications: Ambulatory Orders Medication Instructions Recorded Confirmed Lisinopril 40 mg PO DAILY 04/03/16 03/24/18 Albuterol Sulf [Ventolin Hfa] 1 - 2 puffs INH Q4H PRN 10/01/17 03/24/18 Insulin Degludec [Tresiba 32 unit SUBQ DAILY 10/01/17 03/24/18 Flextouch U-100] RX: Allopurinol 100 mg PO DAILY 10/01/17 03/24/18 RX: Warfarin Sodium 6 mg PO DAILY 10/01/17 03/24/18 RX: Warfarin Sodium 9 mg PO ONCE 10/01/17 03/24/18 amLODIPine [Norvasc] 5 mg PO DAILY 10/01/17 03/24/18 Cholecalciferol (Vitamin D3) 1,000 tab PO DAILY 11/19/17 03/24/18 [Vitamin D3] Multivitamin [Multiple Vitamins] 1 each PO DAILY 11/19/17 03/24/18 Nitrofurantoin Monohyd/M-Cryst 1 cap PO BID 03/24/18 03/24/18 [Macrobid 100 mg Capsule] - Allergies Allergies/Adverse Reactions: Allergies Allergy/AdvReac Type Severity Reaction Status Date / Time codeine Allergy Nausea Verified 07/08/18 16:17 - Social History Does the pt smoke?: No Smoking Status: Never smoker Does the pt drink ETOH?: No Does the pt have substance abuse?: No - Immunizations Immunizations are current?: Yes - POLST Patient has POLST: No PD ED PE NORMAL - Vitals Vital signs reviewed: Yes - General General: Alert and oriented X 3, No acute distress - HEENT HEENT: PERRL, EOMI - Neck Neck: Supple, no meningeal sign, No bony TTP - Extremities Extremities: Other (Tender to the proximal thumb on the right without limited range of motion. There is slight swelling there.) - Neuro Neuro: Alert and oriented X 3, print developer automatic 2-12 intact Eye Opening: Spontaneous Motor: Obeys Commands Verbal: Oriented GCS Score: 15 - Psych Psych: Normal mood, Normal affect Results - Vitals Vitals: Vital Signs - 24 hr 07/08/18 07/08/18 16:15 18:00 Temperature 36.3 C L Heart Rate 84 76 Respiratory 18 18 Rate Blood Pressure 192/84 H 170/77 H O2 Saturation 97 96 Oxygen O2 Source Room air - Labs Labs: Laboratory Tests 07/08/18 16:16 Whole Blood INR 1.5 H - Rads (name of study) CT Head Radiology: EMP read contemporaneously (normal) R hand XR Radiology: EMP read contemporaneously (NAD) Departure - Departure Disposition: 01 Home, Self Care Clinical Impression: Accidental fall, Anticoagulant long-term use, Injury of head and neck, Sprain of right thumb Condition: Good Record reviewed to determine appropriate education?: Yes Instructions: ED Head Injury Closed Comments: Your INR is low today 1.5. Follow-up with your doctor regarding this. Return for new or worsening symptoms. Your blood pressure was elevated today on check into the emergency department. This does not mean that you have hypertension, it is a common phenomenon to come to the emergency department and have elevated blood pressure. I recommend that you see your primary care physician within the week to have it rechecked when you are feeling better. Discharge Date/Time: 07/08/18 18:30
--- NOTE | 2018-07-08 17:10 | CT Report ---
Reason: head inj Procedure Date: 07/08/2018 Accession Number: [id number] / [id number] Procedure: CT - HEAD WO CPT Code: FULL RESULT: EXAM: CT HEAD EXAM DATE: 07/08/2018 04:22 PM. CLINICAL HISTORY: Head inj. COMPARISON: None. TECHNIQUE: Multiaxial CT images were obtained from the foramen magnum to the vertex. Reformats: Sagittal and coronal. IV contrast: None. In accordance with CT protocol optimization, one or more of the following dose reduction techniques were utilized for this exam: automated exposure control, adjustment of mA and/or KV based on patient size, or use of iterative reconstructive technique. FINDINGS: Parenchyma: No intraparenchymal hemorrhage. No evidence of mass, midline shift, or CT findings of infarction. Peters-white differentiation is distinct. Extraaxial Spaces: Normal for age. No subdural or epidural collections identified. Ventricles: Normal in size and position. Sinuses and Orbits: Imaged paranasal sinuses, orbits, and mastoids show no significant abnormality. Bones: No evidence of fracture or calvarial defect. Hyperostosis frontalis interna. Other: None. IMPRESSION: No acute intracranial abnormality. RADIA
[2018-07-08 18:01] VITALS: BP 170/77
--- NOTE | 2018-07-08 18:40 | XRAY Report ---
Reason: R hand pain p fall Procedure Date: 07/08/2018 Accession Number: [id number] / [id number] Procedure: XR - Hand 3 View RT CPT Code: FULL RESULT: EXAM: RIGHT HAND RADIOGRAPHY EXAM DATE: 07/08/2018 06:22 PM. CLINICAL HISTORY: R hand pain p fall. COMPARISON: FOREARM RT 04/19/2018 4:11 PM. TECHNIQUE: 3 views. FINDINGS: Bones: No acute fracture is identified. There is incompletely visualized hypertrophic healing at the distal shaft ulnar fracture seen previously. Joints: Normal. No subluxations. Soft Tissues: Normal. No soft tissue swelling. IMPRESSION: 1. No acute fracture is identified at the right hand. 2. Incompletely visualized hypertrophic healing at the distal shaft right ulnar fracture seen in April. RADIA
== END 2018-07-08 18:30 | disposition home or self-care (01) ==
LOC: ED 16:10
DX: S09.90XA Unspecified injury of head, initial encounter (principal); S19.9XXA Unspecified injury of neck, initial encounter; S63.681A Other sprain of right thumb, initial encounter; W18.30XA Fall on same level, unspecified, initial encounter; I48.91 Unspecified atrial fibrillation; I10 Essential (primary) hypertension; E11.40 Type 2 diabetes mellitus with diabetic neuropathy, unspecified; Z91.81 History of falling; Z79.01 Long term (current) use of anticoagulants
CPT/HCPCS: 70450; 85610; 99283

== ENCOUNTER 2018-07-21 14:24 | Outpatient (CLI) | payer MEDICARE, MEDICAID | END 2018-07-21 14:25 | disposition home or self-care (01) | LOC: LAB.F 14:24 | PROVIDERS: ATTEND Internal Medicine | DX: Z53.9 Procedure and treatment not carried out, unspecified reason (principal) | CPT/HCPCS: 85610 ==

== ENCOUNTER 2018-07-22 14:56 | Outpatient (CLI) | payer MEDICARE, MEDICAID | END 2018-07-22 14:57 | disposition home or self-care (01) | LOC: LAB.F 14:56 | PROVIDERS: ATTEND Internal Medicine | DX: I48.91 Unspecified atrial fibrillation (principal); Z79.01 Long term (current) use of anticoagulants | CPT/HCPCS: 85610 ==

== ENCOUNTER 2018-07-28 08:00 | Outpatient (CLI) | payer MEDICARE, MEDICAID | END 2018-07-28 23:59 | disposition home or self-care (01) | LOC: LAB.R 08:00 | PROVIDERS: ATTEND Registered Nurse | DX: N39.0 Urinary tract infection, site not specified (principal) | CPT/HCPCS: 87086 ==

== ENCOUNTER 2018-08-03 16:56 | Outpatient (CLI) | payer MEDICARE, MEDICAID | END 2018-08-03 16:57 | disposition home or self-care (01) | LOC: LAB 16:56 | PROVIDERS: ATTEND Internal Medicine | DX: I48.91 Unspecified atrial fibrillation (principal); Z79.01 Long term (current) use of anticoagulants | CPT/HCPCS: 85610 ==

== ENCOUNTER 2018-08-12 12:40 | Outpatient (CLI) | payer MEDICARE, MEDICAID | END 2018-08-12 12:41 | disposition home or self-care (01) | LOC: LAB.F 12:40 | PROVIDERS: ATTEND Internal Medicine | DX: I48.91 Unspecified atrial fibrillation (principal); Z79.01 Long term (current) use of anticoagulants | CPT/HCPCS: 85610 ==

== ENCOUNTER 2018-08-17 13:22 | Outpatient (CLI) | payer MEDICARE, MEDICAID ==
[2018-08-17] MEDS ORDERED: ALBUTEROL NEB 2.5 MG/3 ML INH ONE (14:00)
== END 2018-08-17 13:23 | disposition home or self-care (01) ==
LOC: RT 13:22
PROVIDERS: ATTEND Registered Nurse
DX: J44.9 Chronic obstructive pulmonary disease, unspecified (principal); F17.200 Nicotine dependence, unspecified, uncomplicated
CPT/HCPCS: 94060

== ENCOUNTER 2018-08-19 12:43 | Outpatient (CLI) | payer MEDICARE, MEDICAID | END 2018-08-19 12:44 | disposition home or self-care (01) | LOC: LAB.F 12:43 | PROVIDERS: ATTEND Internal Medicine | DX: I48.91 Unspecified atrial fibrillation (principal); Z79.01 Long term (current) use of anticoagulants | CPT/HCPCS: 85610 ==

== ENCOUNTER 2018-08-26 14:00 | Outpatient (CLI) | payer MEDICARE, MEDICAID | END 2018-08-26 14:01 | disposition home or self-care (01) | LOC: LAB.F 14:00 | PROVIDERS: ATTEND Internal Medicine | DX: I48.91 Unspecified atrial fibrillation (principal); Z79.01 Long term (current) use of anticoagulants | CPT/HCPCS: 85610 ==

== ENCOUNTER 2018-09-02 16:05 | Outpatient (CLI) | payer MEDICARE, MEDICAID | END 2018-09-02 23:59 | disposition home or self-care (01) | LOC: LAB 16:05 | PROVIDERS: ATTEND Internal Medicine | DX: I48.91 Unspecified atrial fibrillation (principal); Z79.01 Long term (current) use of anticoagulants | CPT/HCPCS: 85610 ==

== ENCOUNTER 2018-09-02 16:06 | Outpatient (CLI) | payer MEDICAID, MEDICARE | END 2018-09-02 16:07 | disposition home or self-care (01) | LOC: LAB 16:06 | PROVIDERS: ATTEND Internal Medicine | DX: S52.231D Displaced oblique fracture of shaft of right ulna, subsequent encounter for closed fracture with routine healing (principal); Z91.81 History of falling; Z79.01 Long term (current) use of anticoagulants; I48.91 Unspecified atrial fibrillation; E11.49 Type 2 diabetes mellitus with other diabetic neurological complication; S63.601S Unspecified sprain of right thumb, sequela ==

== ENCOUNTER 2018-09-09 15:57 | Outpatient (CLI) | payer MEDICARE, MEDICAID | END 2018-09-09 15:58 | disposition home or self-care (01) | LOC: LAB 15:57 | PROVIDERS: ATTEND Internal Medicine | DX: I48.91 Unspecified atrial fibrillation (principal); Z79.01 Long term (current) use of anticoagulants | CPT/HCPCS: 85610 ==

== ENCOUNTER 2018-10-07 12:00 | Outpatient (CLI) | payer MEDICARE, MEDICAID | END 2018-10-07 12:01 | disposition home or self-care (01) | LOC: LAB.F 12:00 | PROVIDERS: ATTEND Internal Medicine | DX: I48.91 Unspecified atrial fibrillation (principal); Z79.01 Long term (current) use of anticoagulants | CPT/HCPCS: 85610 ==

== ENCOUNTER 2018-10-28 13:02 | Outpatient (CLI) | payer MEDICARE, MEDICAID | END 2018-10-28 13:03 | disposition home or self-care (01) | LOC: LAB 13:02 | PROVIDERS: ATTEND Internal Medicine | DX: I48.91 Unspecified atrial fibrillation (principal); Z79.01 Long term (current) use of anticoagulants | CPT/HCPCS: 85610 ==

== ENCOUNTER 2018-11-30 13:08 | Outpatient (CLI) | payer MEDICARE, MEDICAID ==
[2018-11-30 14:38] LABS: BASOPHILS # (AUTO) 0.1 10^3/uL (0.0-0.1); BASOPHILS % (AUTO) 1.5 %; EOSINOPHILS # (AUTO) 0.3 10^3/uL (0.0-0.7); EOSINOPHILS % (AUTO) 3.1 %; LYMPHOCYTES # (AUTO) 1.8 10^3/uL (1.5-3.5); LYMPHOCYTES % (AUTO) 22.8 %; MEAN CORPUSCULAR HEMOGLOBIN 29.9 pg (27.0-31.0); MEAN CORPUSCULAR HGB CONC 33.1 g/dL (32.0-36.0); MEAN CORPUSCULAR VOLUME 90.3 fL (81.0-99.0); MONOCYTES # (AUTO) 0.8 10^3/uL (0.0-1.0); MONOCYTES % (AUTO) 10.1 %; PLT - PLATELET COUNT 296 10^3/uL (130-450); RED BLOOD COUNT 4.35 10^6/uL (4.20-5.40); RED CELL DISTRIBUTION WIDTH 12.7 % (12.0-15.0); WHITE BLOOD COUNT 8.1 x10^3/uL (4.8-10.8)
[2018-11-30 14:50] LABS: ALBUMIN 3.6 g/dL (3.2-5.5); BILIRUBIN,TOTAL 0.7 mg/dL (0.2-1.0); CALCIUM 9.1 mg/dL (8.5-10.3); CREATININE 1.3 mg/dL (0.4-1.0); TOTAL PROTEIN 7.1 g/dL (6.7-8.2)
[2018-11-30 14:53] LABS: CREATININE,URINE 47.8 mg/dL; HB2 TOTAL 14.1 g/dL; HEMOGLOBIN A1C 0.96 g/dL; HEMOGLOBIN A1C % 8.4 % (4.6-6.2); MICROALBUM/CREATININE RATIO,UR 661.1 ug/mg (<30.0); MICROALBUMIN,URINE 31.6 mg/dL (0-300.0)
== END 2018-11-30 13:09 | disposition home or self-care (01) ==
LOC: LAB 13:08
PROVIDERS: ATTEND Internal Medicine
DX: I48.91 Unspecified atrial fibrillation (principal); Z79.01 Long term (current) use of anticoagulants; E11.49 Type 2 diabetes mellitus with other diabetic neurological complication; I12.9 Hypertensive chronic kidney disease with stage 1 through stage 4 chronic kidney disease, or unspecified chronic kidney disease; N18.3 Chronic kidney disease, stage 3 (moderate)
CPT/HCPCS: 36415; 80053; 82043; 82570; 83036; 85025; 85610

== ENCOUNTER 2018-12-15 08:51 | Outpatient (CLI) | payer MEDICARE, MEDICAID ==
[2018-12-15 18:05] LABS: CHOL/HDL RATIO 3.5 (<4.4); CHOLESTEROL 176 mg/dL; HDL CHOLESTEROL 50 mg/dL; LDL CHOLESTEROL,CALCULATED 107 mg/dL; LDL/HDL RATIO 2.1 (<4.4); VLDL CHOLESTEROL 19 mg/dL
== END 2018-12-15 08:52 | disposition home or self-care (01) ==
LOC: LAB.S 08:51
PROVIDERS: ATTEND Registered Nurse
DX: E11.49 Type 2 diabetes mellitus with other diabetic neurological complication (principal)
CPT/HCPCS: 36415; 80061; 83721

== ENCOUNTER 2019-01-04 14:33 | Outpatient (CLI) | payer MEDICARE, MEDICAID | END 2019-01-04 14:34 | disposition home or self-care (01) | LOC: LAB 14:33 | PROVIDERS: ATTEND Internal Medicine | DX: I48.91 Unspecified atrial fibrillation (principal); Z79.01 Long term (current) use of anticoagulants | CPT/HCPCS: 85610 ==

== ENCOUNTER 2019-02-10 14:58 | Outpatient (CLI) | payer MEDICARE, MEDICAID | END 2019-02-10 14:59 | disposition home or self-care (01) | LOC: LAB.S 14:58 | PROVIDERS: ATTEND Internal Medicine | DX: I48.91 Unspecified atrial fibrillation (principal); Z79.01 Long term (current) use of anticoagulants | CPT/HCPCS: 85610 ==

== ENCOUNTER 2019-03-08 12:26 | Outpatient (CLI) | payer MEDICARE | END 2019-03-08 12:27 | disposition home or self-care (01) | LOC: LAB 12:26 | PROVIDERS: ATTEND Registered Nurse | DX: Z79.01 Long term (current) use of anticoagulants (principal); I48.91 Unspecified atrial fibrillation | CPT/HCPCS: 85610 ==

== ENCOUNTER 2019-03-23 12:23 | Outpatient (CLI) | payer MEDICARE | END 2019-03-23 12:24 | disposition home or self-care (01) | LOC: LAB 12:23 | PROVIDERS: ATTEND Registered Nurse | DX: Z79.01 Long term (current) use of anticoagulants (principal); I48.91 Unspecified atrial fibrillation | CPT/HCPCS: 85610 ==

== ENCOUNTER 2019-04-20 12:22 | Outpatient (CLI) | payer MEDICARE, MEDICAID | END 2019-04-20 12:23 | disposition home or self-care (01) | LOC: LAB 12:22 | PROVIDERS: ATTEND Registered Nurse | DX: Z79.01 Long term (current) use of anticoagulants (principal); I48.91 Unspecified atrial fibrillation | CPT/HCPCS: 85610 ==

== ENCOUNTER 2019-05-06 10:49 | Outpatient (CLI) | payer MEDICARE, MEDICAID ==
[2019-05-06 18:40] LABS: HB2 TOTAL 12.6 g/dL; HEMOGLOBIN A1C 0.8 g/dL
== END 2019-05-06 10:50 | disposition home or self-care (01) ==
LOC: LAB.S 10:49
PROVIDERS: ATTEND Registered Nurse
DX: Z79.01 Long term (current) use of anticoagulants (principal); I48.91 Unspecified atrial fibrillation; E11.49 Type 2 diabetes mellitus with other diabetic neurological complication
CPT/HCPCS: 36415; 83036; 85610

== ENCOUNTER 2019-05-13 14:28 | Outpatient (CLI) | payer MEDICARE, MEDICAID | END 2019-05-13 14:29 | disposition home or self-care (01) | LOC: LAB.S 14:28 | PROVIDERS: ATTEND Registered Nurse | DX: Z79.01 Long term (current) use of anticoagulants (principal); I48.91 Unspecified atrial fibrillation | CPT/HCPCS: 85610 ==

== ENCOUNTER 2019-05-20 15:13 | Outpatient (CLI) | payer MEDICARE, MEDICAID | END 2019-05-20 15:14 | disposition home or self-care (01) | LOC: LAB.S 15:13 | PROVIDERS: ATTEND Registered Nurse | DX: Z79.01 Long term (current) use of anticoagulants (principal); I48.91 Unspecified atrial fibrillation | CPT/HCPCS: 85610 ==

== ENCOUNTER 2019-05-27 15:01 | Outpatient (CLI) | payer MEDICARE, MEDICAID | END 2019-05-27 15:02 | disposition home or self-care (01) | LOC: LAB.S 15:01 | PROVIDERS: ATTEND Registered Nurse | DX: I48.91 Unspecified atrial fibrillation (principal); Z79.01 Long term (current) use of anticoagulants | CPT/HCPCS: 85610 ==

== ENCOUNTER 2019-06-03 13:24 | Outpatient (CLI) | payer MEDICARE, MEDICAID | END 2019-06-03 13:25 | disposition home or self-care (01) | LOC: LAB.S 13:24 | PROVIDERS: ATTEND Registered Nurse | DX: Z79.01 Long term (current) use of anticoagulants (principal); I48.91 Unspecified atrial fibrillation | CPT/HCPCS: 85610 ==

== ENCOUNTER 2019-06-09 13:10 | Outpatient (CLI) | payer MEDICARE, MEDICAID | END 2019-06-09 13:11 | disposition home or self-care (01) | LOC: LAB.S 13:10 | PROVIDERS: ATTEND Registered Nurse | DX: Z79.01 Long term (current) use of anticoagulants (principal); I48.91 Unspecified atrial fibrillation | CPT/HCPCS: 85610 ==

== ENCOUNTER 2019-06-16 13:46 | Outpatient (CLI) | payer MEDICARE, MEDICAID | END 2019-06-16 13:47 | disposition home or self-care (01) | LOC: LAB.S 13:46 | PROVIDERS: ATTEND Registered Nurse | DX: I48.91 Unspecified atrial fibrillation (principal); Z79.01 Long term (current) use of anticoagulants | CPT/HCPCS: 85610 ==

== ENCOUNTER 2019-06-25 17:12 | Outpatient (CLI) | payer MEDICARE, MEDICAID | END 2019-06-25 23:59 | disposition EMS.NT | LOC: EMS 17:12 | PROVIDERS: ATTEND Surgery | DX: Z53.9 Procedure and treatment not carried out, unspecified reason (principal) ==

== ENCOUNTER 2019-09-02 08:00 | Outpatient (CLI) | payer MEDICARE, MEDICAID | END 2019-09-02 23:59 | disposition home or self-care (01) | LOC: LAB.WCP 08:00 | PROVIDERS: ATTEND Registered Nurse | DX: I48.91 Unspecified atrial fibrillation (principal); Z79.01 Long term (current) use of anticoagulants ==

== ENCOUNTER 2019-10-26 14:03 | Outpatient (CLI) | payer MEDICARE, MEDICAID | END 2019-10-26 14:04 | disposition home or self-care (01) | LOC: LAB.S 14:03 | PROVIDERS: ATTEND Registered Nurse | DX: I48.91 Unspecified atrial fibrillation (principal); Z79.01 Long term (current) use of anticoagulants | CPT/HCPCS: 81002; 85610 ==

== ENCOUNTER 2019-11-09 16:54 | Outpatient (CLI) | payer MEDICARE, MEDICAID | END 2019-11-09 23:59 | disposition critical access hospital (66) | LOC: EMS 16:54 | PROVIDERS: ATTEND Surgery | DX: S01.81XA Laceration without foreign body of other part of head, initial encounter (principal); W18.39XA Other fall on same level, initial encounter; Z91.81 History of falling; Y92.008 Other place in unspecified non-institutional (private) residence as the place of occurrence of the external cause | CPT/HCPCS: A0425; A0429 ==

== ENCOUNTER 2019-11-09 17:29 | Emergency (ER) | payer MEDICARE, MEDICAID ==
--- NOTE | 2019-11-09 17:37 | ED Physician Documentation ---
PD HPI HEAD INJURY - Stated complaint Stated Complaint: GLF - History obtained from History obtained from: Patient, EMS - Additional information Additional information: 74-year-old woman on warfarin for A. fib. She tripped over her own feet and fell about an hour ago hitting the back of her head. She remembers the fall but then had some amnesia afterwards. Her daughter has a home INR machine and reportedly checks her INR just then and it was 2.7. No other injuries. Of note though for about 6 months she has had some trouble writing and some slurred speech and wonders if she might of had a stroke 6 months ago. She has not been evaluated for that. 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 HEENT: Cataracts - Present Medications Home Medications: Ambulatory Orders Medication Instructions Recorded Confirmed Insulin Degludec [Tresiba 30 unit SUBQ DAILY 10/01/17 03/08/19 Flextouch U-100] Warfarin Sodium 6 mg PO DAILY 10/01/17 03/08/19 allopurinoL [Allopurinol] 100 mg PO DAILY PM 10/01/17 03/08/19 amLODIPine [Norvasc] 5 mg PO DAILY PM 10/01/17 03/08/19 Cholecalciferol (Vitamin D3) 1,000 tab PO DAILY 11/19/17 03/08/19 [Vitamin D3] Multivitamin [Multiple Vitamins] 1 each PO DAILY 11/19/17 03/08/19 Acetaminophen 1,000 mg PO BID 12/08/18 03/08/19 Ubidecarenone [Co Q-10] 100 mg PO DAILY 12/08/18 03/08/19 lisinopriL [Lisinopril] 30 mg PO DAILY PM 12/08/18 03/08/19 Calcium Carbonate [Calcium] 600 mg PO DAILY 02/25/19 03/08/19 Ipratropium [place] [Atrovent Hfa] 12.9 gm IH BID 02/25/19 03/08/19 Iron,Carbonyl/Ascorbic Acid [Fe C 1 each PO DAILY 02/25/19 03/08/19 Tablet] L.acid/L.casei/B.bif/B.cayetano/Fos 1 each PO DAILY 02/25/19 03/08/19 [Probiotic Blend Capsule] Solifenacin Succinate [Vesicare] 5 mg PO DAILY 02/25/19 03/08/19 - Allergies Allergies/Adverse Reactions: Allergies Allergy/AdvReac Type Severity Reaction Status Date / Time codeine Allergy Nausea Verified 07/08/18 16:17 - Social History Does the pt smoke?: No Smoking Status: Former smoker Does the pt drink ETOH?: No Does the pt have substance abuse?: No - Immunizations Immunizations are current?: Yes - POLST Patient has POLST: No PD ED PE NORMAL - Vitals Vital signs reviewed: Yes - General General: Alert and oriented X 3, No acute distress - HEENT HEENT: PERRL, EOMI, Other (Slightly slurred speech, she says she has been like that for the last 6 months. There is a small laceration on the occiput.) - Neck Neck: No bony TTP - Derm Derm: Warm and dry - Extremities Extremities: No deformity, No tenderness to palpate, No edema, No calf tenderness / cord - Neuro Neuro: Alert and oriented X 3, No motor deficit, No sensory deficit, Normal speech Results - Vitals Vitals: Vital Signs - 24 hr 11/09/19 11/09/19 11/09/19 17:36 17:39 18:09 Temperature 36.7 C Heart Rate 74 75 70 Respiratory 16 16 16 Rate Blood Pressure 147/123 H 145/98 H 162/88 H O2 Saturation 96 98 98 11/09/19 11/09/19 18:39 19:00 Temperature Heart Rate 70 72 Respiratory 16 16 Rate Blood Pressure 165/85 H 152/78 H O2 Saturation 98 100 Oxygen O2 Source Room air - Labs Labs: Laboratory Tests 11/09/19 11/09/19 11/09/19 18:22 18:22 18:22 WBC 8.9 RBC 4.45 Hgb 13.4 Hct 40.9 MCV 91.9 MCH 30.1 MCHC 32.8 RDW 13.2 Plt Count 303 MPV 9.1 Neut # (Auto) 6.2 Lymph # (Auto) 1.3 L [place] # (Auto) 0.8 Eos # (Auto) 0.5 Baso # (Auto) 0.1 Absolute Nucleated RBC 0.00 Nucleated RBC % 0.0 PT 31.6 H INR 3.0 H Sodium 137 Potassium 4.7 Chloride 101 Carbon Dioxide 24 Anion Gap 12.0 BUN 49 H Creatinine 1.4 H Estimated GFR (MDRD) 37 L Glucose 97 Calcium 8.9 Total Bilirubin 0.7 AST 22 ALT 25 Alkaline Phosphatase 61 Total Protein 7.9 Albumin 4.2 Globulin 3.7 Albumin/Globulin Ratio 1.1 Lipase 90 H - Rads (name of study) CT Head Radiology: EMP read contemporaneously (R frontal extraaxial hemorrhage likely subdural, epidural poss) CT Cspine Radiology: EMP read contemporaneously (no frx) Procedures - Laceration (location) occiput Length in cm: 3 Wound type: Linear, Into subcut fat Anesthesia: Lidocaine 1%, With bicarb Wound Preparation: Irrigated copiously NS Skin layer closure: [place] (5) Other: Tetanus booster given Complexity: Simple PD MEDICAL DECISION MAKING - ED course ED course: 74-year-old woman on warfarin for A. fib presents after a mechanical ground- level fall hitting the back of her head. CT imaging demonstrates a right frontal subdural and less likely epidural hematoma. She was given 2 g of Kcentra to reverse her INR. Occipital scalp wound was stapled. She was accepted by Dr. Nelson to [facility] ED at approximately 6:40 PM for a higher level of trauma care and cobras were completed. She is stable for transport and does need transport to a surgery capable trauma center. - Critical Care Time(min): 40 Time Includes: Direct patient care, Review records, Reassess patient, Document care, Coordinate care, Medical consult ([facility] [place], [place]), Family consult for tx dec (DAUGHTER) Data interpretation: Labs, Pulse ox Procedures included in critical care time: Peripheral IV Procedures excluded from critical care time: See progress note (LACERATION REPAIR) Departure - Departure Disposition: 02 Transfer Acute Care Hosp Clinical Impression: Anticoagulant long-term use, Subdural hemorrhage Fall Qualifiers: Encounter type: initial encounter Qualified Code(s): W19.XXXA - Unspecified fa ll, initial encounter Occipital scalp laceration Qualifiers: Encounter type: initial encounter Qualified Code(s): S01.01XA - Laceration without foreign body of scalp, initial encounter Condition: Critical Discharge Date/Time: 11/09/19 19:08
--- NOTE | 2019-11-09 18:13 | CT Report ---
PROCEDURE: CERVICAL SPINE WO INDICATIONS: head injury TECHNIQUE: Noncontrast 3 mm thick sections acquired from the skull base to the T4 level. Sagittal and coronal r eformats were then constructed. For radiation dose reduction, the following was used: automated exp osure control, adjustment of mA and/or kV according to patient size. COMPARISON: None. FINDINGS: Image quality: Excellent. Bones: No fractures or dislocations. There is loss of normal cervical lordosis. Severe degenerative disc disease is present at C5-C6 and C6-C7. There is bilateral facet arthropathy, most pronounced at C4-C5 on the left. Visualized superior ribs are intact. Soft tissues: Prevertebral soft tissues are normal in thickness. No paravertebral hematomas. No ap ical pneumothoraces. IMPRESSION: 1. No cervical spine fracture. 2. Degenerative disc and facet disease. Reviewed by: Chung Le MD on 11/09/2019 6:11 PM PDT Approved by: Chung Le MD on 11/09/2019 6:11 PM PDT Station ID: [id number]
[2019-11-09] MEDS ORDERED: PROTHROMBIN COMPLEX CONC 500 UNIT VIAL IVP STA (18:16)
--- NOTE | 2019-11-09 18:17 | CT Report ---
PROCEDURE: HEAD WO INDICATIONS: head injury TECHNIQUE: Noncontrast 4.5 mm thick angled axial sections acquired from the foramen magnum to the vertex. For r adiation dose reduction, the following was used: automated exposure control, adjustment of mA and/or kV according to patient size. COMPARISON: 07/08/2018. FINDINGS: Image quality: Excellent. CSF spaces: Basal cisterns are patent. Ventricles are normal in size and shape. Brain: Right-sided extra-axial hemorrhage is seen, which is best displayed on series 3 image 18 and on series 6 image 13. Its measures 1 cm in thickness. Mild associated mass effect is seen. No midline shift, when comparison is made with the prior CT. Peters-white matter interface is normal. Skull and face: No definite fractures are seen. Hyperostosis frontalis is incidentally noted, which i s not frankly abnormal for a female patient of this age. Sinuses: Visualized sinuses and mastoids are clear. IMPRESSION: Right-sided extra-axial hemorrhage is seen, which is most likely a subdural hemorrhage, which measures 1 cm in thickness, with mild associated mass effect. Differential diagnosis includes e pidural hemorrhage, however. No associated calvarial fracture is seen. Note: Critical findings discussed by telephone with Dr. Patel at 5:14 PM [place] time on 11/09/2019. Reviewed by: Gallo Almeida MD on 11/09/2019 5:16 PM AKDT Approved by: Gallo Almeida MD on 11/09/2019 5:16 PM AKDT Station ID: [id number]
[2019-11-09 18:27] LABS: BASOPHILS # (AUTO) 0.1 10^3/uL (0.0-0.1); BASOPHILS % (AUTO) 1.1 %; EOSINOPHILS # (AUTO) 0.5 10^3/uL (0.0-0.7); EOSINOPHILS % (AUTO) 5.7 %; HGB - HEMOGLOBIN 13.4 g/dL (12.0-16.0); LYMPHOCYTES # (AUTO) 1.3 10^3/uL (1.5-3.5); LYMPHOCYTES % (AUTO) 14.2 %; MEAN CORPUSCULAR HEMOGLOBIN 30.1 pg (27.0-31.0); MEAN CORPUSCULAR HGB CONC 32.8 g/dL (32.0-36.0); MEAN CORPUSCULAR VOLUME 91.9 fL (81.0-99.0); MEAN PLATELET VOLUME 9.1 fL (7.9-10.8); MONOCYTES # (AUTO) 0.8 10^3/uL (0.0-1.0); MONOCYTES % (AUTO) 8.9 %; NEUTROPHILS # (AUTO) 6.2 10^3/uL (1.5-6.6); NEUTROPHILS % (AUTO) 69.6 %; PLT - PLATELET COUNT 303 10^3/uL (130-450); RED BLOOD COUNT 4.45 10^6/uL (4.20-5.40); RED CELL DISTRIBUTION WIDTH 13.2 % (12.0-15.0); WHITE BLOOD COUNT 8.9 x10^3/uL (4.8-10.8)
[2019-11-09 18:44] LABS: ALBUMIN 4.2 g/dL (3.2-5.5); ALBUMIN/GLOBULIN RATIO 1.1 (1.0-2.2); BILIRUBIN,TOTAL 0.7 mg/dL (0.2-1.0); CALCIUM 8.9 mg/dL (8.5-10.3); CREATININE 1.4 mg/dL (0.4-1.0); TOTAL PROTEIN 7.9 g/dL (6.7-8.2)
[2019-11-09 18:50] LABS: PT - PROTHROMBIN TIME 31.6 secs (9.9-12.6)
[2019-11-09] MEDS ORDERED: TETANUS/DIPHTHERIA/PERTUSSIS 0.5 ML SYRINGE IM ONE (18:50)
[2019-11-09 19:07] VITALS: BP 152/78
== END 2019-11-09 19:08 | disposition short-term general hospital (02) ==
LOC: EDUNIT# → ED 17:29
DX: I62.00 Nontraumatic subdural hemorrhage, unspecified (principal); I48.91 Unspecified atrial fibrillation; S01.01XA Laceration without foreign body of scalp, initial encounter; W01.0XXA Fall on same level from slipping, tripping and stumbling without subsequent striking against object, initial encounter; Z79.01 Long term (current) use of anticoagulants; Z87.891 Personal history of nicotine dependence
CPT/HCPCS: 12013; 36415; 70450; 72125; 80053; 83690; 85025; 85610; 96374; 99285; 99291; C9132

== ENCOUNTER 2019-11-22 09:30 | Outpatient (CLI) | payer MEDICARE, MEDICAID | END 2019-11-22 09:31 | disposition home or self-care (01) | LOC: COV 09:30 | PROVIDERS: ATTEND Family Medicine | DX: R05 Cough (principal); R06.02 Shortness of breath; M79.10 Myalgia, unspecified site; R53.83 Other fatigue; R19.7 Diarrhea, unspecified; R09.81 Nasal congestion; Z20.828 Contact with and (suspected) exposure to other viral communicable diseases ==

== ENCOUNTER 2019-12-17 20:37 | Emergency (ER) | payer MEDICARE, MEDICAID ==
--- NOTE | 2019-12-17 20:47 | ED Physician Documentation ---
PD HPI HEAD INJURY - Stated complaint Stated Complaint: GLF/ HEAD INJ - Chief complaint Chief Complaint: Trauma Hd/Nk - History obtained from History obtained from: Patient, EMS - History of Present Illness Mechanism of head injury: Fell Where head injury occurred: Home Timing - onset: How many hours ago (1) Pain level max: 0 Pain level now: 0 Location of injury: Front Associated symptoms: No: LOC, AMS, Amnesia, Nausea / vomiting, Neck pain, Paresthesias, Seizures, Ear drainage, Nasal drainage Symptoms improve with: Rest Symptoms worsen with: No: Palpation, Movement Contributing factors: Anticoagulated (warfarin) - Additional information Additional information: 74-year-old female was approximately 1 month status post a subdural hemorrhage, she has already been restarted on her warfarin. Her INR was 3.1 yesterday. She tripped and fell forward today striking the front of her head. No loss of consciousness. She states that she had a T1 fracture at [facility] as well. No neck or back pain currently. She states that she was told that because of her neuropathy, she does not feel pain normally. Review of Systems Ten Systems: 10 systems reviewed and negative Constitutional: denies: Fever, Chills GI: denies: Nausea, Vomiting, Diarrhea Skin: denies: Rash Musculoskeletal: denies: Neck pain, Back pain Neurologic: denies: Headache PD PAST MEDICAL HISTORY - Past Medical History Past Medical History: Yes Cardiovascular: Hypertension, Atrial fibrillation Respiratory: COPD, Pneumonia Neuro: Peripheral neuropathy Endocrine/Autoimmune: Type 2 diabetes GI: GERD, Chronic diarrhea : Kidney stones HEENT: Chronic vision loss Psych: Anxiety Musculoskeletal: Osteoarthritis Derm: None - Past Surgical History Past Surgical History: No General: Cholecystectomy, Appendectomy 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, 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 HEENT: Cataracts - Present Medications Home Medications: Ambulatory Orders Medication Instructions Recorded Confirmed Insulin Degludec [Tresiba 30 unit SUBQ DAILY 10/01/17 12/17/19 Flextouch U-100] Warfarin Sodium 2 mg PO DAILY 10/01/17 12/17/19 allopurinoL [Allopurinol] 100 mg PO DAILY PM 10/01/17 12/17/19 amLODIPine [Norvasc] 5 mg PO DAILY PM 10/01/17 12/17/19 Cholecalciferol (Vitamin D3) 1,000 tab PO DAILY 11/19/17 12/17/19 [Vitamin D3] Multivitamin [Multiple Vitamins] 1 each PO DAILY 11/19/17 12/17/19 Acetaminophen 1,000 mg PO BID 12/08/18 12/17/19 Ubidecarenone [Co Q-10] 100 mg PO DAILY 12/08/18 12/17/19 lisinopriL [Lisinopril] 30 mg PO DAILY PM 12/08/18 12/17/19 Calcium Carbonate [Calcium] 600 mg PO DAILY 02/25/19 12/17/19 Ipratropium [place] [Atrovent Hfa] 12.9 gm IH BID 02/25/19 12/17/19 Iron,Carbonyl/Ascorbic Acid [Fe C 1 each PO DAILY 02/25/19 12/17/19 Tablet] L.acid/L.casei/B.bif/B.cayetano/Fos 1 each PO DAILY 02/25/19 12/17/19 [Probiotic Blend Capsule] Solifenacin Succinate [Vesicare] 5 mg PO DAILY 02/25/19 12/17/19 Cephalexin [Keflex] 500 mg PO Q6H #20 capsule 12/17/19 Warfarin [Coumadin] 3 mg PO DAILY 12/17/19 12/17/19 - Allergies Allergies/Adverse Reactions: Allergies Allergy/AdvReac Type Severity Reaction Status Date / Time codeine Allergy Nausea Verified 12/17/19 20:48 - Social History Does the pt smoke?: No Smoking Status: Former smoker Does the pt drink ETOH?: No Does the pt have substance abuse?: No - Immunizations Immunizations are current?: Yes - POLST Patient has POLST: No PD ED PE NORMAL - Vitals Vital signs reviewed: Yes - General General: Alert and oriented X 3, No acute distress - HEENT HEENT: Atraumatic, PERRL, EOMI, Ears normal, Moist mucous membranes - Neck Neck: Supple, no meningeal sign, No bony TTP - Cardiac Cardiac: RRR - Respiratory Respiratory: No respiratory distress, Clear bilaterally - Abdomen Abdomen: Soft, Non tender, Non distended - Back Back: No CVA TTP - Derm Derm: Warm and dry, No rash - Extremities Extremities: No edema - Neuro Neuro: Alert and oriented X 3, digital analytics manager 2-12 intact, No motor deficit, No sensory deficit - Psych Psych: Normal mood, Normal affect Results - Vitals Vitals: Vital Signs - 24 hr 12/17/19 12/17/19 12/17/19 20:37 21:14 21:38 Temperature 36.4 C L Heart Rate 75 85 82 Respiratory 18 28 H 26 H Rate Blood Pressure 152/85 H 159/90 H 146/80 H O2 Saturation 94 94 97 12/17/19 12/17/19 22:21 22:30 Temperature 36.7 C Heart Rate 83 Respiratory 22 Rate Blood Pressure 141/80 H O2 Saturation 97 Oxygen O2 Source Room air - Labs Labs: Laboratory Tests 12/17/19 12/17/19 12/17/19 20:53 20:53 20:53 WBC 8.4 RBC 4.08 L Hgb 12.4 Hct 37.4 MCV 91.7 MCH 30.4 MCHC 33.2 RDW 13.0 Plt Count 283 MPV 9.1 Neut # (Auto) 5.8 Lymph # (Auto) 1.3 L [place] # (Auto) 0.9 Eos # (Auto) 0.3 Baso # (Auto) 0.1 Absolute Nucleated RBC 0.00 Nucleated RBC % 0.0 PT 26.2 H INR 2.4 H Sodium 137 Potassium 4.7 Chloride 102 Carbon Dioxide 24 Anion Gap 11.0 BUN 43 H Creatinine 1.5 H Estimated GFR (MDRD) 34 L Glucose 147 H Calcium 9.5 Total Bilirubin 0.6 AST 16 ALT 19 Alkaline Phosphatase 56 Total Protein 6.8 Albumin 3.7 Globulin 3.1 Albumin/Globulin Ratio 1.2 Lipase 55 H Urine Color Urine Clarity Urine pH Ur Specific [place] Urine Protein Urine Glucose (UA) Urine Ketones Urine Occult Blood Urine Nitrite Urine Bilirubin Urine Urobilinogen Ur Leukocyte Esterase Urine RBC Urine WBC Ur Squamous Epith Cells Urine Bacteria Ur Microscopic Review Urine Culture Comments 12/17/19 21:45 WBC RBC Hgb Hct MCV MCH MCHC RDW Plt Count MPV Neut # (Auto) Lymph # (Auto) [place] # (Auto) Eos # (Auto) Baso # (Auto) Absolute Nucleated RBC Nucleated RBC % PT INR Sodium Potassium Chloride Carbon Dioxide Anion Gap BUN Creatinine Estimated GFR (MDRD) Glucose Calcium Total Bilirubin AST ALT Alkaline Phosphatase Total Protein Albumin Globulin Albumin/Globulin Ratio Lipase Urine Color YELLOW Urine Clarity CLEAR Urine pH 5.0 Ur Specific [place] 1.025 Urine Protein 100 H Urine Glucose (UA) NEGATIVE Urine Ketones NEGATIVE Urine Occult Blood SMALL H Urine Nitrite NEGATIVE Urine Bilirubin NEGATIVE Urine Urobilinogen 0.2 (NORMAL) Ur Leukocyte Esterase MODERATE H Urine RBC 0-5 Urine WBC >25 H Ur Squamous Epith Cells NONE SEEN Urine Bacteria None Seen Ur Microscopic Review INDICATED Urine Culture Comments INDICATED - Rads (name of study) head Ct Radiology: Prelim report reviewed, EMP read contemporaneously, See rad report c spine CT Radiology: Prelim report reviewed, EMP read contemporaneously, See rad report PD MEDICAL DECISION MAKING - ED course Complexity details: reviewed results, re-evaluated patient, considered differ ential, d/w patient, d/w family ED course: No acute abnormality on head CT, cervical spine CT. Does have a UTI and we will treat for this. The daughter states that she has been cleared to restart warfarin by neurosurgery. We will have her continue this at home as well. Patient is well-appearing, nontoxic. Afebrile. Patient and family counseled regarding signs and symptoms for which I believe and urgent re-evaluation would be necessary. Patient with good understanding of and agreement to plan and is comfortable going home at this time This document was made in part using voice recognition software. While efforts are made to proofread this document, sound alike and grammatical errors may occur. Departure - Departure Disposition: 01 Home, Self Care Clinical Impression: UTI (urinary tract infection) Qualifiers: Urinary tract infection type: acute cystitis Hematuria presence: without hematuria Qualified Code(s): N30.00 - Acute cystitis without hematuria Closed head injury Qualifiers: Encounter type: initial encounter Qualified Code(s): S09.90XA - Unspecified injury of head, initial encounter Condition: Good Instructions: ED Head Injury Closed, ED UTI Cystitis Female Follow-Up: your,doctor in 1 week [Other] Prescriptions: Cephalexin [Keflex] 500 mg PO Q6H #20 capsule Comments: Take all antibiotics until gone. Return if you worsen. You should discuss with your doctor whether you should continue the warfarin or not.
[2019-12-17 20:58] LABS: BASOPHILS # (AUTO) 0.1 10^3/uL (0.0-0.1); BASOPHILS % (AUTO) 1.2 %; EOSINOPHILS # (AUTO) 0.3 10^3/uL (0.0-0.7); EOSINOPHILS % (AUTO) 3.1 %; HGB - HEMOGLOBIN 12.4 g/dL (12.0-16.0); LYMPHOCYTES # (AUTO) 1.3 10^3/uL (1.5-3.5); LYMPHOCYTES % (AUTO) 14.9 %; MEAN CORPUSCULAR HEMOGLOBIN 30.4 pg (27.0-31.0); MEAN CORPUSCULAR HGB CONC 33.2 g/dL (32.0-36.0); MEAN CORPUSCULAR VOLUME 91.7 fL (81.0-99.0); MEAN PLATELET VOLUME 9.1 fL (7.9-10.8); MONOCYTES # (AUTO) 0.9 10^3/uL (0.0-1.0); MONOCYTES % (AUTO) 11.1 %; NEUTROPHILS # (AUTO) 5.8 10^3/uL (1.5-6.6); NEUTROPHILS % (AUTO) 69.3 %; PLT - PLATELET COUNT 283 10^3/uL (130-450); RED BLOOD COUNT 4.08 10^6/uL (4.20-5.40); WHITE BLOOD COUNT 8.4 x10^3/uL (4.8-10.8)
[2019-12-17 21:06] LABS: INR 2.4 (0.8-1.2); PT - PROTHROMBIN TIME 26.2 secs (9.9-12.6)
[2019-12-17 21:15] LABS: ALBUMIN 3.7 g/dL (3.2-5.5); ALBUMIN/GLOBULIN RATIO 1.2 (1.0-2.2); BILIRUBIN,TOTAL 0.6 mg/dL (0.2-1.0); CREATININE 1.5 mg/dL (0.4-1.0); TOTAL PROTEIN 6.8 g/dL (6.7-8.2)
[2019-12-17 21:22] LABS: CALCIUM 9.5 mg/dL (8.5-10.3)
--- NOTE | 2019-12-17 21:32 | CT Report ---
PROCEDURE: HEAD WO INDICATIONS: fall, head, injury, recent subdural hemorrhage TECHNIQUE: Noncontrast 4.5 mm thick angled axial sections acquired from the foramen magnum to the vertex. For r adiation dose reduction, the following was used: automated exposure control, adjustment of mA and/or kV according to patient size. COMPARISON: 12/01/2019, 11/08/1929. Correlation is also made with the accompanying cervical spine CT FINDINGS: Image quality: Excellent. CSF spaces: Basal cisterns are patent. No extra-axial fluid collections. Ventricles are normal in size and shape. Brain: No midline shift. No intracranial masses or hemorrhage. The previously seen right-sided sub dural hemorrhage has nearly completely resolved since the prior head CT dated 12/01/2019 Peters-white ma tter interface is normal. Age-appropriate brain parenchymal volume loss and chronic small vessel isc hemic change can be seen. Skull and face: Calvarium and visualized facial bones are intact, without suspicious lesions. Hyper ostosis frontalis is incidentally noted, which is not frankly abnormal for a female patient of this a ge. Sinuses: Visualized sinuses and mastoids are clear. IMPRESSION: Near complete resolution of the previously seen right-sided subdural hemorrhage. No new hemorrhage is seen. Reviewed by: Gallo Almeida MD on 12/17/2019 8:30 PM LUIS E Approved by: Gallo Almeida MD on 12/17/2019 8:30 PM LUIS E Station ID: [id number]
--- NOTE | 2019-12-17 21:33 | CT Report ---
PROCEDURE: CERVICAL SPINE WO INDICATIONS: fall, neck injury TECHNIQUE: Noncontrast 3 mm thick sections acquired from the skull base to the T4 level. Sagittal and coronal r eformats were then constructed. For radiation dose reduction, the following was used: automated exp osure control, adjustment of mA and/or kV according to patient size. COMPARISON: 11/09/2019. Correlation is also made with the accompanying head CT 12/17/2019 FINDINGS: Image quality: Excellent. Bones: No fractures or dislocations. Visualized superior ribs are intact. Degenerative changes are seen, which are most prominent inferiorly. At C5-C6 and C6-C7, there is mode rate to severe disc space narrowing, with associated endplate irregularity and sclerosis. Posteriorly directed endplate osteophytes are seen at these levels. Focal degenerative change is also seen invol ving the C1-C2 interface anteriorly. There is overall straightening of the normal cervical lordosis. Milder degenerative changes are seen elsewhere. Soft tissues: Prevertebral soft tissues are normal in thickness. No paravertebral hematomas. No ap ical pneumothoraces. IMPRESSION: No acute fractures are seen. Relatively prominent lower cervical spine degenerative changes are again seen. Reviewed by: Gallo Almeida MD on 12/17/2019 8:32 PM LUIS E Approved by: Gallo Almeida MD on 12/17/2019 8:32 PM LUIS E Station ID: [id number]
[2019-12-17 21:54] LABS: BILIRUBIN,URINE NEGATIVE (NEGATIVE); GLUCOSE, URINE (UA) NEGATIVE (NEGATIVE); KETONES,URINE (UA) NEGATIVE (NEGATIVE); LEUKOCYTE ESTERASE, URINE MODERATE (NEGATIVE); NITRITE,URINE NEGATIVE (NEGATIVE); OCCULT BLOOD,URINE SMALL (NEGATIVE); PROTEIN,URINE 100 mg/dL (NEGATIVE); UROBILINOGEN,URINE 0.2 (NORMAL) E.U./dL (NORMAL)
[2019-12-17 21:55] LABS: CLARITY,URINE CLEAR (CLEAR)
[2019-12-17 22:08] LABS: BACTERIA,URINE None Seen /HPF (None Seen); RBC,URINE 0-5 /HPF (0-5); SQUAMOUS EPITHELIAL CELL,UR NONE SEEN (<= Few)
[2019-12-17 22:21] VITALS: BP 141/80
[2019-12-17] MEDS ORDERED: cephALEXin 250 MG CAPSULE PO STA (22:23)
== END 2019-12-17 22:40 | disposition home or self-care (01) ==
LOC: EDUNIT# → ED 20:37
DX: S09.90XA Unspecified injury of head, initial encounter (principal); W01.0XXA Fall on same level from slipping, tripping and stumbling without subsequent striking against object, initial encounter; Y92.009 Unspecified place in unspecified non-institutional (private) residence as the place of occurrence of the external cause; N30.00 Acute cystitis without hematuria; M50.322 Other cervical disc degeneration at C5-C6 level; M48.02 Spinal stenosis, cervical region; Z86.73 Personal history of transient ischemic attack (TIA), and cerebral infarction without residual deficits; Z79.01 Long term (current) use of anticoagulants; I48.91 Unspecified atrial fibrillation; I10 Essential (primary) hypertension; E11.42 Type 2 diabetes mellitus with diabetic polyneuropathy; Z79.4 Long term (current) use of insulin; Z87.891 Personal history of nicotine dependence
CPT/HCPCS: 36415; 70450; 72125; 80053; 81001; 83690; 85025; 85610; 87086; 99284; 99285; A9270; 81003

== ENCOUNTER 2020-02-08 15:30 | Emergency (ER) | payer MEDICARE, MEDICAID ==
[2020-02-08 16:11] LABS: BASOPHILS # (AUTO) 0.1 10^3/uL (0.0-0.1); BASOPHILS % (AUTO) 1.1 %; EOSINOPHILS # (AUTO) 0.2 10^3/uL (0.0-0.7); EOSINOPHILS % (AUTO) 1.6 %; HGB - HEMOGLOBIN 12.8 g/dL (12.0-16.0); LYMPHOCYTES # (AUTO) 1.2 10^3/uL (1.5-3.5); LYMPHOCYTES % (AUTO) 12.8 %; MEAN CORPUSCULAR HEMOGLOBIN 30.3 pg (27.0-31.0); MEAN CORPUSCULAR HGB CONC 32.3 g/dL (32.0-36.0); MEAN CORPUSCULAR VOLUME 93.6 fL (81.0-99.0); MEAN PLATELET VOLUME 9.1 fL (7.9-10.8); MONOCYTES % (AUTO) 11.1 %; NEUTROPHILS # (AUTO) 6.8 10^3/uL (1.5-6.6); PLT - PLATELET COUNT 287 10^3/uL (130-450); RED BLOOD COUNT 4.23 10^6/uL (4.20-5.40); WHITE BLOOD COUNT 9.4 x10^3/uL (4.8-10.8)
[2020-02-08 16:20] LABS: INR 2.5 (0.8-1.2)
[2020-02-08 16:24] LABS: ALBUMIN 3.5 g/dL (3.2-5.5); BILIRUBIN,TOTAL 0.5 mg/dL (0.2-1.0); CREATININE 1.6 mg/dL (0.4-1.0); TOTAL PROTEIN 6.9 g/dL (6.7-8.2)
--- NOTE | 2020-02-08 16:28 | CT Report ---
PROCEDURE: HEAD WO INDICATIONS: fall head injury TECHNIQUE: Noncontrast 4.5 mm thick angled axial sections acquired from the foramen magnum to the vertex. For r adiation dose reduction, the following was used: automated exposure control, adjustment of mA and/or kV according to patient size. COMPARISON: 12/17/2019 and 12/01/2019 FINDINGS: Image quality: Excellent. CSF spaces: Basal cisterns are patent. No extra-axial fluid collections. The ventricles are symmet natanael in size and shape. Brain: No intracranial bleeds or masses. There is cerebral volume loss for age, with resultant vent ricular and sulcal prominence. There are periventricular and deep white matter chronic small vessel ischemic changes. There is intracranial internal carotid artery and vertebral artery atherosclerosis. Skull and face: Calvarium and visualized facial bones appear intact, without suspicious lesions. Sinuses: Visualized sinuses and mastoids are clear. IMPRESSION: No acute intracranial disease process. Reviewed by: Kaya Mustafa MD, PhD on 02/08/2020 4:27 PM PDT Approved by: Kaya Mustafa MD, PhD on 02/08/2020 4:27 PM PDT Station ID: [id number]
--- NOTE | 2020-02-08 16:30 | ED Physician Documentation ---
PD HPI HEAD INJURY - Stated complaint Stated Complaint: GLF - Chief complaint Chief Complaint: Trauma Hd/Nk - History obtained from History obtained from: Patient - History of Present Illness Mechanism of head injury: Fell Where head injury occurred: Home Timing - onset: Today Location of injury: Right, Front Quality of pain: Pain Associated symptoms: No: LOC, AMS, Amnesia, Nausea / vomiting, Neck pain, Paresthesias, Seizures, Ear drainage Symptoms improve with: Rest Symptoms worsen with: Palpation, Movement Contributing factors: Anticoagulated Similar symptoms before: Diagnosis (subdural hematoma) Recently seen: Emergency Dept - Additional information Additional information: 74-year-old female on Coumadin for a pulmonary embolism as had another fall today she was using her walker she went outside the walker got going too fast and she fell forward onto the dirt. She did hit the forehead. She did not get knocked out. She denies any pain in her neck. She was not previously ill. She denies any new symptoms. She does have some dysarthria associated with a prior subdural hematoma. Review of Systems Constitutional: denies: Fever Eyes: denies: Decreased vision Ears: denies: Ear pain Nose: denies: Congestion Throat: denies: Sore throat Cardiac: denies: Chest pain / pressure, Palpitations Respiratory: denies: Dyspnea GI: denies: Nausea, Vomiting, Constipation, Diarrhea : denies: Dysuria, Frequency PD PAST MEDICAL HISTORY - Past Medical History Cardiovascular: Hypertension, Atrial fibrillation Respiratory: COPD, Pneumonia Neuro: Peripheral neuropathy Endocrine/Autoimmune: Type 2 diabetes GI: GERD, Chronic diarrhea : Kidney stones HEENT: Chronic vision loss Psych: Anxiety Musculoskeletal: Osteoarthritis Derm: None - Past Surgical History Past Surgical History: No General: Cholecystectomy, Appendectomy Ortho: 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: Tubal ligation, Oophrectomy HEENT: Cataracts - Present Medications Home Medications: Ambulatory Orders Medication Instructions Recorded Confirmed Insulin Degludec [Tresiba 30 unit SUBQ DAILY 10/01/17 12/17/19 Flextouch U-100] Warfarin Sodium 2 mg PO DAILY 10/01/17 12/17/19 allopurinoL [Allopurinol] 100 mg PO DAILY PM 10/01/17 12/17/19 amLODIPine [Norvasc] 5 mg PO DAILY PM 10/01/17 12/17/19 Cholecalciferol (Vitamin D3) 1,000 tab PO DAILY 11/19/17 12/17/19 [Vitamin D3] Multivitamin [Multiple Vitamins] 1 each PO DAILY 11/19/17 12/17/19 Acetaminophen 1,000 mg PO BID 12/08/18 12/17/19 Ubidecarenone [Co Q-10] 100 mg PO DAILY 12/08/18 12/17/19 lisinopriL [Lisinopril] 30 mg PO DAILY PM 12/08/18 12/17/19 Calcium Carbonate [Calcium] 600 mg PO DAILY 02/25/19 12/17/19 Ipratropium [place] [Atrovent Hfa] 12.9 gm IH BID 02/25/19 12/17/19 Iron,Carbonyl/Ascorbic Acid [Fe C 1 each PO DAILY 02/25/19 12/17/19 Tablet] L.acid/L.casei/B.bif/B.cayetano/Fos 1 each PO DAILY 02/25/19 12/17/19 [Probiotic Blend Capsule] Solifenacin Succinate [Vesicare] 5 mg PO DAILY 02/25/19 12/17/19 Cephalexin [Keflex] 500 mg PO Q6H #20 capsule 12/17/19 Warfarin [Coumadin] 3 mg PO DAILY 12/17/19 12/17/19 Sulfamethoxazole/Trimethoprim 1 each PO BID #14 tablet 02/08/20 [Sulfamethoxazole-Tmp Ds Tablet] - Allergies Allergies/Adverse Reactions: Allergies Allergy/AdvReac Type Severity Reaction Status Date / Time codeine Allergy Nausea Verified 02/08/20 15:42 - Social History Does the pt smoke?: No Smoking Status: Former smoker Does the pt drink ETOH?: No Does the pt have substance abuse?: No - Immunizations Immunizations are current?: Yes - POLST Patient has POLST: No PD ED PE NORMAL - Vitals Vital signs reviewed: Yes - General General: Alert and oriented X 3, No acute distress, Well developed/nourished - HEENT HEENT: PERRL, EOMI, Other (brusing to the forehead on right ) - Neck Neck: Supple, no meningeal sign, No bony TTP - Cardiac Cardiac: RRR, No murmur - Respiratory Respiratory: No respiratory distress, Clear bilaterally - Abdomen Abdomen: Soft, Non tender - Back Back: No CVA TTP, No spinal TTP - Derm Derm: Normal color, Warm and dry, No rash - Extremities Extremities: No deformity, No edema, No calf tenderness / cord - Neuro Neuro: No motor deficit, No sensory deficit Eye Opening: Spontaneous Motor: Obeys Commands Verbal: Oriented GCS Score: 15 - Psych Psych: Normal mood, Normal affect Results - Vitals Vitals: Vital Signs - 24 hr 02/08/20 15:37 Temperature 36.4 C L Heart Rate 67 Respiratory 17 Rate Blood Pressure 138/77 H O2 Saturation 96 Oxygen O2 Source Room air - Labs Labs: Laboratory Tests 02/08/20 02/08/20 02/08/20 15:52 16:06 16:06 WBC 9.4 RBC 4.23 Hgb 12.8 Hct 39.6 MCV 93.6 MCH 30.3 MCHC 32.3 RDW 13.0 Plt Count 287 MPV 9.1 Neut # (Auto) 6.8 H Lymph # (Auto) 1.2 L [place] # (Auto) 1.0 Eos # (Auto) 0.2 Baso # (Auto) 0.1 Absolute Nucleated RBC 0.00 Nucleated RBC % 0.0 PT 26.0 H INR 2.5 H Sodium Potassium Chloride Carbon Dioxide Anion Gap BUN Creatinine Estimated GFR (MDRD) Glucose Calcium Total Bilirubin AST ALT Alkaline Phosphatase Total Protein Albumin Globulin Albumin/Globulin Ratio Lipase Urine Color YELLOW Urine Clarity CLEAR Urine pH 5.5 Ur Specific [place] 1.020 Urine Protein 100 H Urine Glucose (UA) NEGATIVE Urine Ketones NEGATIVE Urine Occult Blood TRACE-INTA Urine Nitrite NEGATIVE Urine Bilirubin NEGATIVE Urine Urobilinogen 0.2 (NORMAL) Ur Leukocyte Esterase MODERATE H Urine RBC 0-5 Urine WBC 6-10 H Ur Epithelial Cells FEW Transitional Ur Squamous Epith Cells FEW Squamous Urine Bacteria None Seen Ur Microscopic Review INDICATED Urine Culture Comments INDICATED 02/08/20 16:06 WBC RBC Hgb Hct MCV MCH MCHC RDW Plt Count MPV Neut # (Auto) Lymph # (Auto) [place] # (Auto) Eos # (Auto) Baso # (Auto) Absolute Nucleated RBC Nucleated RBC % PT INR Sodium 136 Potassium 4.6 Chloride 101 Carbon Dioxide 27 Anion Gap 8.0 BUN 48 H Creatinine 1.6 H Estimated GFR (MDRD) 31 L Glucose 119 H Calcium 9.0 Total Bilirubin 0.5 AST 15 ALT 18 Alkaline Phosphatase 51 Total Protein 6.9 Albumin 3.5 Globulin 3.4 Albumin/Globulin Ratio 1.0 Lipase 54 H Urine Color Urine Clarity Urine pH Ur Specific [place] Urine Protein Urine Glucose (UA) Urine Ketones Urine Occult Blood Urine Nitrite Urine Bilirubin Urine Urobilinogen Ur Leukocyte Esterase Urine RBC Urine WBC Ur Epithelial Cells Ur Squamous Epith Cells Urine Bacteria Ur Microscopic Review Urine Culture Comments - Rads (name of study) ct head Radiology: Prelim report reviewed (Impression: No acute intracranial disease process.), EMP read indepedently, See rad report PD MEDICAL DECISION MAKING - ED course Complexity details: reviewed results, re-evaluated patient, considered differential, d/w patient ED course: 74-year-old female on Coumadin with a ground-level fall and head injury has no evidence of subdural hematoma today. She denies any pain in her neck and otherwise feels well. She is asymptomatic from urinary tract infection. She has had problems with urinary tract infection previously and request treatment. Departure - Departure Disposition: 01 Home, Self Care Clinical Impression: UTI (urinary tract infection) Qualifiers: Urinary tract infection type: acute cystitis Hematuria presence: without hematuria Qualified Code(s): N30.00 - Acute cystitis without hematuria Closed head injury Qualifiers: Encounter type: initial encounter Qualified Code(s): S09.90XA - Unspecified injury of head, initial encounter Condition: Stable Instructions: ED Head Injury Closed, ED UTI Cystitis Female Follow-Up: Manda Pabon ARNP [Primary Care Provider] - Prescriptions: Sulfamethoxazole/Trimethoprim [Sulfamethoxazole-Tmp Ds Tablet] 1 each PO BID #14 tablet
[2020-02-08 16:34] LABS: BILIRUBIN,URINE NEGATIVE (NEGATIVE); GLUCOSE, URINE (UA) NEGATIVE (NEGATIVE); KETONES,URINE (UA) NEGATIVE (NEGATIVE); LEUKOCYTE ESTERASE, URINE MODERATE (NEGATIVE); NITRITE,URINE NEGATIVE (NEGATIVE); OCCULT BLOOD,URINE TRACE-INTA (NEGATIVE); PH,URINE 5.5 PH (5.0-7.5); PROTEIN,URINE 100 mg/dL (NEGATIVE); UROBILINOGEN,URINE 0.2 (NORMAL) E.U./dL (NORMAL)
[2020-02-08 16:36] LABS: CLARITY,URINE CLEAR (CLEAR)
[2020-02-08 16:46] LABS: BACTERIA,URINE None Seen /HPF (None Seen); EPITHELIAL CELLS,UR FEW Transitional /HPF (<= Few); RBC,URINE 0-5 /HPF (0-5); SQUAMOUS EPITHELIAL CELL,UR FEW Squamous (<= Few)
[2020-02-08 17:18] VITALS: BP 138/74
== END 2020-02-08 17:20 | disposition home or self-care (01) ==
LOC: ED 15:30
DX: S09.90XA Unspecified injury of head, initial encounter (principal); S00.83XA Contusion of other part of head, initial encounter; W01.0XXA Fall on same level from slipping, tripping and stumbling without subsequent striking against object, initial encounter; Y93.01 Activity, walking, marching and hiking; Y92.007 Garden or yard of unspecified non-institutional (private) residence as the place of occurrence of the external cause; N30.00 Acute cystitis without hematuria; I69.222 Dysarthria following other nontraumatic intracranial hemorrhage; Z86.711 Personal history of pulmonary embolism; Z79.01 Long term (current) use of anticoagulants; I10 Essential (primary) hypertension; E11.42 Type 2 diabetes mellitus with diabetic polyneuropathy; Z87.891 Personal history of nicotine dependence
CPT/HCPCS: 36415; 70450; 80053; 81001; 81003; 83690; 85025; 85610; 87086; 99284

== ENCOUNTER 2020-03-09 19:31 | Emergency (ER) | payer MEDICARE, MEDICAID ==
[2020-03-09 19:39] VITALS: BP 130/100
--- NOTE | 2020-03-09 19:46 | ED Physician Documentation ---
PD HPI LOWER EXT INJURY - Stated complaint Stated Complaint: RT ANKLE PX - Chief complaint Chief Complaint: Ext Problem - History obtained from History obtained from: Patient, Family - Additional information Additional information: This is a 74-year-old woman who presents complaining of about 2 days of atraumatic or minimal atraumatic right ankle pain. She may have twisted it, it really only hurts if she walks but she is able to walk and bear weight. She was seen at physical therapy today and there was a worry for blood clot even though the pain seems awfully low for that. She does have a history of elevated uric acid levels for which she takes allopurinol all. Review of Systems Constitutional: reports: Reviewed and negative Eyes: reports: Reviewed and negative Ears: reports: Reviewed and negative Nose: reports: Reviewed and negative Throat: reports: Reviewed and negative Cardiac: reports: Reviewed and negative Respiratory: reports: Reviewed and negative PD PAST MEDICAL HISTORY - Past Medical History Cardiovascular: Hypertension, Atrial fibrillation Respiratory: COPD, Pneumonia Neuro: Peripheral neuropathy Endocrine/Autoimmune: Type 2 diabetes GI: GERD, Chronic diarrhea : Kidney stones HEENT: Chronic vision loss Psych: Anxiety Musculoskeletal: Osteoarthritis Derm: None - Past Surgical History Past Surgical History: No General: Cholecystectomy, Appendectomy 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, Oophrectomy HEENT: Cataracts - Present Medications Home Medications: Ambulatory Orders Medication Instructions Recorded Confirmed Insulin Degludec [Tresiba 30 unit SUBQ DAILY 10/01/17 12/17/19 Flextouch U-100] Warfarin Sodium 2 mg PO DAILY 10/01/17 12/17/19 allopurinoL [Allopurinol] 100 mg PO DAILY PM 10/01/17 12/17/19 amLODIPine [Norvasc] 5 mg PO DAILY PM 10/01/17 12/17/19 Cholecalciferol (Vitamin D3) 1,000 tab PO DAILY 11/19/17 12/17/19 [Vitamin D3] Multivitamin [Multiple Vitamins] 1 each PO DAILY 11/19/17 12/17/19 Acetaminophen 1,000 mg PO BID 12/08/18 12/17/19 Ubidecarenone [Co Q-10] 100 mg PO DAILY 12/08/18 12/17/19 lisinopriL [Lisinopril] 30 mg PO DAILY PM 12/08/18 12/17/19 Calcium Carbonate [Calcium] 600 mg PO DAILY 02/25/19 12/17/19 Ipratropium [place] [Atrovent Hfa] 12.9 gm IH BID 02/25/19 12/17/19 Iron,Carbonyl/Ascorbic Acid [Fe C 1 each PO DAILY 02/25/19 12/17/19 Tablet] L.acid/L.casei/B.bif/B.cayetano/Fos 1 each PO DAILY 02/25/19 12/17/19 [Probiotic Blend Capsule] Solifenacin Succinate [Vesicare] 5 mg PO DAILY 02/25/19 12/17/19 Cephalexin [Keflex] 500 mg PO Q6H #20 capsule 12/17/19 Warfarin [Coumadin] 3 mg PO DAILY 12/17/19 12/17/19 Sulfamethoxazole/Trimethoprim 1 each PO BID #14 tablet 02/08/20 [Sulfamethoxazole-Tmp Ds Tablet] predniSONE [Deltasone] 1 tab PO DAILY #5 tab 03/09/20 - Allergies Allergies/Adverse Reactions: Allergies Allergy/AdvReac Type Severity Reaction Status Date / Time codeine Allergy Nausea Verified 03/09/20 19:36 - Social History Does the pt smoke?: No Smoking Status: Former smoker Does the pt drink ETOH?: No Does the pt have substance abuse?: No - Immunizations Immunizations are current?: Yes - POLST Patient has POLST: No PD ED PE NORMAL - Vitals Vital signs reviewed: Yes - General General: Alert and oriented X 3, No acute distress - HEENT HEENT: PERRL, EOMI - Neck Neck: Supple, no meningeal sign, No bony TTP - Extremities Extremities: Other (She is tender to the right ankle especially just above the ankle mortise medially. There is swelling there. No redness or warmth. Relatively painless passive range of motion of the right ankle. Her gait is normal using a walker.) - Psych Psych: Normal mood, Normal affect Results - Vitals Vitals: Vital Signs - 24 hr 03/09/20 19:36 Temperature 36.5 C Heart Rate 62 Respiratory 16 Rate Blood Pressure 130/100 H O2 Saturation 94 Oxygen O2 Source Room air - Labs Labs: Laboratory Tests 03/09/20 03/09/20 20:02 20:02 WBC 7.2 RBC 4.23 Hgb 12.6 Hct 39.1 MCV 92.4 MCH 29.8 MCHC 32.2 RDW 13.1 Plt Count 268 MPV 9.4 Neut # (Auto) 4.5 Lymph # (Auto) 1.6 [place] # (Auto) 0.7 Eos # (Auto) 0.3 Baso # (Auto) 0.1 Absolute Nucleated RBC 0.00 Nucleated RBC % 0.0 Sodium 140 Potassium 4.5 Chloride 107 Carbon Dioxide 27 Anion Gap 6.0 BUN 54 H Creatinine 1.6 H Estimated GFR (MDRD) 31 L Glucose 136 H Uric Acid 6.4 Calcium 9.2 - Rads (name of study) RLE duplex Radiology: EMP read contemporaneously R ankle Radiology: EMP read contemporaneously (calcific tendinopathy, NAD) PD MEDICAL DECISION MAKING - ED course ED course: 74-year-old woman with atraumatic right ankle pain and swelling, most consistent with gouty arthritis given her history of elevated uric acid. No clinical evidence of infection and no leukocytosis. X-ray is negative except for chronic findings. Ultrasound negative for DVT. She was given 1 dose of Indocin and colchicine here, but I was hesitant to give a prescription for these given her on going stable renal insufficiency. Departure - Departure Disposition: 01 Home, Self Care Clinical Impression: Right ankle pain Qualifiers: Chronicity: acute Qualified Code(s): M25.571 - Pain in right ankle and joints of right foot Condition: Stable Record reviewed to determine appropriate education?: Yes Instructions: ED Arthritis Gout, ED Diet Gout Prescriptions: predniSONE [Deltasone] 1 tab PO DAILY #5 tab Comments: As discussed, you were seen today for right ankle pain, the x-ray was normal except for evidence of old tendinopathy. Ultrasound to look for DVT was negative. Your uric acid was high normal, this may be a gout attack. We are starting some anti-inflammatories for that. Many of the medications we use for gout are contraindicated with your other medications. Return for new or worsening symptoms. Follow-up with your doctor.
--- NOTE | 2020-03-09 20:11 | XRAY Report ---
PROCEDURE: Ankle 3 View RT INDICATIONS: ankle pain TECHNIQUE: 3 views of the ankle were acquired. COMPARISON: None. FINDINGS: Bones: No fractures or dislocations. Prominent plantar calcaneal spur. Small retrocalcaneal spur. An kle mortise is normally aligned. No suspicious bony lesions. Soft tissues: Mild soft tissue swelling of the medial and lateral malleolus as well as the lower leg . No tibiotalar joint effusion. Achilles tendon appears normal. IMPRESSION: Mild soft tissue swelling of the right lower leg and ankle without underlying fracture or dislocation . Plantar calcaneal and retrocalcaneal enthesophytes. Reviewed by: Baldemar Peck MD on 03/09/2020 7:10 PM [facility] Approved by: Baldemar Peck MD on 03/09/2020 7:10 PM [facility] Station ID: [id number]
[2020-03-09 20:15] LABS: BASOPHILS # (AUTO) 0.1 10^3/uL (0.0-0.1); BASOPHILS % (AUTO) 1.1 %; EOSINOPHILS # (AUTO) 0.3 10^3/uL (0.0-0.7); EOSINOPHILS % (AUTO) 3.6 %; HGB - HEMOGLOBIN 12.6 g/dL (12.0-16.0); LYMPHOCYTES # (AUTO) 1.6 10^3/uL (1.5-3.5); LYMPHOCYTES % (AUTO) 21.8 %; MEAN CORPUSCULAR HEMOGLOBIN 29.8 pg (27.0-31.0); MEAN CORPUSCULAR HGB CONC 32.2 g/dL (32.0-36.0); MEAN CORPUSCULAR VOLUME 92.4 fL (81.0-99.0); MEAN PLATELET VOLUME 9.4 fL (7.9-10.8); MONOCYTES # (AUTO) 0.7 10^3/uL (0.0-1.0); MONOCYTES % (AUTO) 10.3 %; NEUTROPHILS # (AUTO) 4.5 10^3/uL (1.5-6.6); NEUTROPHILS % (AUTO) 62.9 %; PLT - PLATELET COUNT 268 10^3/uL (130-450); RED BLOOD COUNT 4.23 10^6/uL (4.20-5.40); RED CELL DISTRIBUTION WIDTH 13.1 % (12.0-15.0); WHITE BLOOD COUNT 7.2 x10^3/uL (4.8-10.8)
[2020-03-09 20:24] LABS: CALCIUM 9.2 mg/dL (8.5-10.3); CREATININE 1.6 mg/dL (0.4-1.0); URIC ACID 6.4 mg/dL (2.6-7.2)
[2020-03-09] MEDS ORDERED: INDOMETHACIN 25 MG CAPSULE PO STA (21:06)
[2020-03-09] MEDS ORDERED: COLCHICINE 0.6 MG TABLET PO STA (21:06)
[2020-03-09] MEDS ORDERED: predniSONE 20 MG TABLET PO STA (21:07)
--- NOTE | 2020-03-09 21:10 | Ultrasound Report ---
PROCEDURE: Duplex Ext Veins Right INDICATIONS: ankle pain TECHNIQUE: Real-time imaging, as well as color and pulse Doppler interrogation, were performed of the lower extr emity deep veins from the inguinal ligament to the popliteal fossa. COMPARISON: None. FINDINGS: The deep veins are normally compressible, and free of intraluminal thrombus. Color and pu lse Doppler demonstrate normal phasic intraluminal flow. There is normal augmentation response to di stal compression maneuver. IMPRESSION: No evidence of right lower extremity DVT. Reviewed by: Carie Cardozo MD on 03/09/2020 9:09 PM [facility] Approved by: Carie Cardozo MD on 03/09/2020 9:09 PM [facility] Station ID: [id number]
== END 2020-03-09 21:37 | disposition home or self-care (01) ==
LOC: ED 19:31
DX: M25.571 Pain in right ankle and joints of right foot (principal); M77.31 Calcaneal spur, right foot; N28.9 Disorder of kidney and ureter, unspecified; E11.42 Type 2 diabetes mellitus with diabetic polyneuropathy; Z79.4 Long term (current) use of insulin; I10 Essential (primary) hypertension; I48.91 Unspecified atrial fibrillation; Z79.01 Long term (current) use of anticoagulants; Z87.891 Personal history of nicotine dependence
CPT/HCPCS: 36415; 80048; 84550; 85025; 99284

== ENCOUNTER 2020-03-14 10:32 | Outpatient (CLI) | payer MEDICARE, MEDICAID ==
[2020-03-14 15:19] LABS: BASOPHILS # (AUTO) 0.1 10^3/uL (0.0-0.1); BASOPHILS % (AUTO) 0.9 %; EOSINOPHILS # (AUTO) 0.1 10^3/uL (0.0-0.7); HGB - HEMOGLOBIN 13.8 g/dL (12.0-16.0); LYMPHOCYTES # (AUTO) 2.2 10^3/uL (1.5-3.5); LYMPHOCYTES % (AUTO) 22.4 %; MEAN CORPUSCULAR HEMOGLOBIN 29.7 pg (27.0-31.0); MEAN CORPUSCULAR HGB CONC 32.2 g/dL (32.0-36.0); MEAN CORPUSCULAR VOLUME 92.3 fL (81.0-99.0); MEAN PLATELET VOLUME 9.7 fL (7.9-10.8); MONOCYTES % (AUTO) 9.8 %; NEUTROPHILS # (AUTO) 6.5 10^3/uL (1.5-6.6); NEUTROPHILS % (AUTO) 65.4 %; PLT - PLATELET COUNT 344 10^3/uL (130-450); RED BLOOD COUNT 4.65 10^6/uL (4.20-5.40); RED CELL DISTRIBUTION WIDTH 13.2 % (12.0-15.0); WHITE BLOOD COUNT 9.9 x10^3/uL (4.8-10.8)
[2020-03-14 15:31] LABS: ALBUMIN 3.6 g/dL (3.2-5.5); ALBUMIN/GLOBULIN RATIO 1.1 (1.0-2.2); ALKALINE PHOSPHATASE 57 IU/L (42-121); ALT ALANINE AMINOTRANSFERASE 23 IU/L (10-60); AST ASPARTATE AMINOTRANSFERASE 17 IU/L (10-42); BILIRUBIN,TOTAL 0.9 mg/dL (0.2-1.0); BUN - BLOOD UREA NITROGEN 46 mg/dL (6-20); CALCIUM 9.3 mg/dL (8.5-10.3); CARBON DIOXIDE - CO2 26 mmol/L (21-32); CHLORIDE 101 mmol/L (101-111); CHOL/HDL RATIO 2.5 (<4.4); CHOLESTEROL 222 mg/dL; CREATININE 1.5 mg/dL (0.4-1.0); GLUCOSE 117 mg/dL (70-100); HDL CHOLESTEROL 88 mg/dL; LDL CHOLESTEROL,CALCULATED 117 mg/dL; LDL/HDL RATIO 1.3 (<4.4); SODIUM 140 mmol/L (135-145); VLDL CHOLESTEROL 17 mg/dL
[2020-03-14 15:39] LABS: CREATININE,URINE 102.2 mg/dL; MICROALBUM/CREATININE RATIO,UR 832.7 ug/mg (<30.0); MICROALBUMIN,URINE 85.1 mg/dL (0-300.0)
[2020-03-14 16:22] LABS: INR 3.5 (0.8-1.2); PT - PROTHROMBIN TIME 36.4 secs (9.9-12.6)
[2020-03-14 18:52] LABS: HEMOGLOBIN A1c% 6.7 % (4.27-6.07)
== END 2020-03-14 10:33 | disposition home or self-care (01) ==
LOC: LAB.S 10:32
PROVIDERS: ATTEND Registered Nurse
DX: I12.9 Hypertensive chronic kidney disease with stage 1 through stage 4 chronic kidney disease, or unspecified chronic kidney disease (principal); E11.22 Type 2 diabetes mellitus with diabetic chronic kidney disease; N18.30 Chronic kidney disease, stage 3 unspecified; I48.91 Unspecified atrial fibrillation; E11.49 Type 2 diabetes mellitus with other diabetic neurological complication; R19.7 Diarrhea, unspecified; Z79.01 Long term (current) use of anticoagulants
CPT/HCPCS: 36415; 80053; 80061; 82043; 82570; 83036; 83721; 84443; 85025; 85610

== ENCOUNTER 2020-04-09 07:00 | Outpatient (CLI) | payer MEDICARE, MEDICAID ==
[2020-04-09 20:13] LABS: BILIRUBIN,URINE NEGATIVE (NEGATIVE); GLUCOSE, URINE (UA) NEGATIVE (NEGATIVE); KETONES,URINE (UA) NEGATIVE (NEGATIVE); LEUKOCYTE ESTERASE, URINE SMALL (NEGATIVE); NITRITE,URINE NEGATIVE (NEGATIVE); OCCULT BLOOD,URINE TRACE-INTA (NEGATIVE); PH,URINE 5.5 PH (5.0-7.5); PROTEIN,URINE 30 mg/dL (NEGATIVE); UROBILINOGEN,URINE 0.2 (NORMAL) E.U./dL (NORMAL)
[2020-04-09 20:32] LABS: CLARITY,URINE CLEAR (CLEAR); RBC,URINE 0-5 /HPF (0-5); SQUAMOUS EPITHELIAL CELL,UR FEW Squamous (<= Few); WBC CLUMPS,URINE PRESENT
[2020-04-09 20:33] LABS: BACTERIA,URINE Few /HPF (None Seen)
== END 2020-04-09 23:59 | disposition home or self-care (01) ==
LOC: LAB 07:00
PROVIDERS: ATTEND Registered Nurse
DX: N39.0 Urinary tract infection, site not specified (principal)
CPT/HCPCS: 81001; 87086

== ENCOUNTER 2020-05-22 08:00 | Outpatient (CLI) | payer MEDICARE, MEDICAID | END 2020-05-22 23:59 | disposition home or self-care (01) | LOC: LAB.F 08:00 | PROVIDERS: ATTEND Registered Nurse | DX: I48.91 Unspecified atrial fibrillation (principal); Z79.01 Long term (current) use of anticoagulants ==

== ENCOUNTER 2020-06-21 22:47 | Outpatient (CLI) | payer MEDICARE, MEDICAID | END 2020-06-21 22:48 | disposition EMS.NT | LOC: EMS 22:47 | DX: S61.210A Laceration without foreign body of right index finger without damage to nail, initial encounter (principal); W26.9XXA Contact with unspecified sharp object(s), initial encounter; Y93.89 Activity, other specified; Y92.000 Kitchen of unspecified non-institutional (private) residence as the place of occurrence of the external cause ==

== ENCOUNTER 2020-06-21 23:57 | Emergency (ER) | payer MEDICARE, MEDICAID ==
[2020-06-22 00:04] VITALS: BP 177/64
--- NOTE | 2020-06-22 00:36 | ED Physician Documentation ---
PD HPI UPPER EXT INJURY - Stated complaint Stated Complaint: RT INDEX LAC - Chief complaint Chief Complaint: Laceration - History obtained from History obtained from: Patient - History of Present Illness Location: Right, Finger (index finger at DIP joint) Type of injury: Laceration (on metal edge) Where injury occurred: Home Timing - onset: How many hours ago (1-2), Today Timing - details: Abrupt onset (she says the cut did not want to stop bleeding even with direct pressure.) Worsened by: Palpating Associated symptoms: No: Weakness, Numbness Similar symptoms before: Has not had sx before Review of Systems Constitutional: denies: Fever, Chills Nose: denies: Rhinorrhea / runny nose, Congestion Throat: denies: Sore throat Respiratory: denies: Cough Neurologic: denies: Focal weakness, Numbness PD PAST MEDICAL HISTORY - Past Medical History Past Medical History: Yes Cardiovascular: Hypertension, Atrial fibrillation Respiratory: COPD, Pneumonia Neuro: Peripheral neuropathy Endocrine/Autoimmune: Type 2 diabetes GI: GERD, Chronic diarrhea : Kidney stones HEENT: Chronic vision loss Psych: Anxiety Musculoskeletal: Osteoarthritis Derm: None - Past Surgical History Past Surgical History: Yes General: Cholecystectomy, Appendectomy 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: Tubal 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, Oophrectomy HEENT: Cataracts - Present Medications Home Medications: Ambulatory Orders Medication Instructions Recorded Confirmed Insulin Degludec [Tresiba 30 unit SUBQ DAILY 10/01/17 06/22/20 Flextouch U-100] Warfarin Sodium 2 mg PO DAILY 10/01/17 06/22/20 amLODIPine [Norvasc] 5 mg PO DAILY PM 10/01/17 06/22/20 Cholecalciferol (Vitamin D3) 1,000 tab PO DAILY 11/19/17 06/22/20 [Vitamin D3] Multivitamin [Multiple Vitamins] 1 each PO DAILY 11/19/17 06/22/20 Acetaminophen 1,000 mg PO BID PRN 12/08/18 06/22/20 Ubidecarenone [Co Q-10] 100 mg PO DAILY 12/08/18 06/22/20 lisinopriL [Lisinopril] 30 mg PO DAILY PM 12/08/18 06/22/20 Calcium Carbonate [Calcium] 600 mg PO DAILY 02/25/19 06/22/20 Ipratropium [place] [Atrovent Hfa] 12.9 gm IH BID 02/25/19 06/22/20 Iron,Carbonyl/Ascorbic Acid [Fe C 1 each PO DAILY 02/25/19 06/22/20 Tablet] Warfarin [Coumadin] 3 mg PO DAILY 12/17/19 06/22/20 Oxybutynin [Ditropan] 5 mg PO DAILY 06/22/20 06/22/20 - Allergies Allergies/Adverse Reactions: Allergies Allergy/AdvReac Type Severity Reaction Status Date / Time codeine Allergy Nausea Verified 06/22/20 00:01 - Social History Does the pt smoke?: No Smoking Status: Never smoker Does the pt drink ETOH?: No Does the pt have substance abuse?: No - Immunizations Immunizations are current?: Yes - POLST Patient has POLST: No PD ED PE NORMAL - Vitals Vital signs reviewed: Yes - General General: Alert and oriented X 3, No acute distress, Well developed/nourished - Derm Derm: Normal color, Warm and dry - Extremities Extremities: Other (right index finger with 1 cm laceration on radial side DIP joint. No Blleding nor FB. Able to flex and extend at joint. Wound appears just subcut. Can close it with steristrips and glue.) - Neuro Neuro: No motor deficit, No sensory deficit Results - Vitals Vitals: Vital Signs - 24 hr 06/22/20 00:01 Temperature 36.5 C Heart Rate 70 Respiratory 16 Rate Blood Pressure 177/64 H O2 Saturation 98 Oxygen O2 Source Room air - Labs Labs: Laboratory Tests 06/22/20 01:10 Whole Blood INR 1.6 H Procedures - Laceration (location) right index finger Length in cm: 1 Wound type: Linear Neurovascular status: Sensory intact, Motor intact, Vascular intact Tendon involvement: Tendon intact Wound preparation: Wound explored, To the base. No: FB identified Skin layer closure: Dermabond, Steri strips PD MEDICAL DECISION MAKING - ED course Complexity details: considered differential, d/w patient Departure - Departure Disposition: 01 Home, Self Care Clinical Impression: Finger laceration Qualifiers: Encounter type: initial encounter Finger: index finger Damage to nail status: without damage Foreign body presence: without foreign body Laterality: right Qualified Code(s): S61.210A - Laceration without foreign body of right index finger without damage to nail, initial encounter Condition: Stable Record reviewed to determine appropriate education?: Yes Instructions: ED Laceration Ext Skin Glue Follow-Up: Manda Pabon ARNP [Primary Care Provider] - Comments: Keep the wound clean and dry and allow the Steri-Strips and glue to fall off on their own over several days or more. At that point you should be able to treat the wound with regular cleaning ointment and Band-Aid. Recheck if signs of infection. Discharge Date/Time: 06/22/20 01:40
== END 2020-06-22 01:40 | disposition home or self-care (01) ==
LOC: ED 23:57
DX: S61.210A Laceration without foreign body of right index finger without damage to nail, initial encounter (principal); W26.8XXA Contact with other sharp object(s), not elsewhere classified, initial encounter; Y92.009 Unspecified place in unspecified non-institutional (private) residence as the place of occurrence of the external cause; I48.91 Unspecified atrial fibrillation; I10 Essential (primary) hypertension; E11.42 Type 2 diabetes mellitus with diabetic polyneuropathy; Z79.4 Long term (current) use of insulin; Z79.01 Long term (current) use of anticoagulants
CPT/HCPCS: 12001; 85610; 99282; 99283

== ENCOUNTER 2020-06-29 12:17 | Outpatient (CLI) | payer MEDICARE, MEDICAID ==
[2020-06-29 15:33] LABS: CALCIUM 9.2 mg/dL (8.5-10.3); CREATININE 1.5 mg/dL (0.4-1.0); POTASSIUM 5.2 mmol/L (3.5-5.0)
[2020-06-29 15:47] LABS: MICROALBUM/CREATININE RATIO,UR 368.7 ug/mg (<30.0); MICROALBUMIN,URINE 30.6 mg/dL (0-300.0)
== END 2020-06-29 12:18 | disposition home or self-care (01) ==
LOC: LAB.S 12:17
PROVIDERS: ATTEND Registered Nurse
DX: N39.0 Urinary tract infection, site not specified (principal); E11.22 Type 2 diabetes mellitus with diabetic chronic kidney disease; E11.49 Type 2 diabetes mellitus with other diabetic neurological complication; N18.30 Chronic kidney disease, stage 3 unspecified; I48.91 Unspecified atrial fibrillation; R19.7 Diarrhea, unspecified; Z79.01 Long term (current) use of anticoagulants
CPT/HCPCS: 36415; 80048; 82043; 82570

== ENCOUNTER 2020-07-08 08:00 | Outpatient (CLI) | payer MEDICARE, MEDICAID | END 2020-07-08 23:59 | disposition home or self-care (01) | LOC: LAB.R 08:00 | PROVIDERS: ATTEND Registered Nurse | DX: R19.7 Diarrhea, unspecified (principal) | CPT/HCPCS: 81599; 87045; 87046; 87427; 87493 ==

== ENCOUNTER 2020-08-24 22:51 | Outpatient (CLI) | payer MEDICARE, MEDICAID | END 2020-08-24 22:52 | disposition critical access hospital (66) | LOC: EMS 22:51 | DX: R51.9 Headache, unspecified (principal); M54.2 Cervicalgia; Z79.01 Long term (current) use of anticoagulants | CPT/HCPCS: A0425; A0429 ==

== ENCOUNTER 2020-08-24 23:22 | Emergency (ER) | payer MEDICARE, MEDICAID ==
--- NOTE | 2020-08-24 23:21 | ED Physician Documentation ---
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 denies LOC, c/o posterior left sided-neck pain and posterior headache where her head hit the floor. she takes warfarin. FSBS by medics en route was 176. Review of Systems Constitutional: reports: Reviewed and negative Eyes: reports: Reviewed and negative Ears: reports: Reviewed and negative Cardiac: reports: Reviewed and negative Respiratory: reports: Reviewed and negative GI: reports: Reviewed and negative Skin: reports: Reviewed and negative Musculoskeletal: reports: Neck pain. denies: Back pain, Extremity pain, Joint pain, Pain with weight bearing Neurologic: reports: Headache, Head injury. denies: Generalized weakness, Focal weakness, Numbness, Near syncope, Syncope, Confused, Altered mental status, LOC PD PAST MEDICAL HISTORY - Past Medical History Past Medical History: Yes Cardiovascular: Hypertension, Atrial fibrillation Endocrine/Autoimmune: Type 1 diabetes - Present Medications Home Medications: Ambulatory Orders Medication Instructions Recorded Confirmed Insulin Degludec [Tresiba 30 unit SUBQ DAILY 10/01/17 08/24/20 Flextouch U-100] Warfarin Sodium 2 mg PO DAILY 10/01/17 08/24/20 amLODIPine [Norvasc] 5 mg PO DAILY PM 10/01/17 08/24/20 Acetaminophen 1,000 mg PO BID PRN 12/08/18 08/24/20 lisinopriL [Lisinopril] 20 mg PO DAILY PM 12/08/18 08/24/20 Ipratropium [place] [Atrovent Hfa] 12.9 gm IH BID 02/25/19 08/24/20 Warfarin [Coumadin] 3 mg PO DAILY 12/17/19 08/24/20 Oxybutynin [Ditropan] 5 mg PO DAILY 06/22/20 08/24/20 - Allergies Allergies/Adverse Reactions: Allergies Allergy/AdvReac Type Severity Reaction Status Date / Time codeine Allergy Nausea Verified 08/24/20 23:33 PD ED PE NORMAL - Vitals Vital signs reviewed: Yes - General General: Alert and oriented X 3, No acute distress, Well developed/nourished - HEENT HEENT: PERRL, EOMI, Moist mucous membranes, Other (left posterior occipital tender small hematoma without crepitus or bony stepoff) - Neck Neck: Supple, no meningeal sign, No bony TTP - Cardiac Cardiac: RRR - Respiratory Respiratory: No respiratory distress - Abdomen Abdomen: Soft, Non tender - Back Back: No spinal TTP - Derm Derm: Normal color, Warm and dry - Extremities Extremities: No deformity, No tenderness to palpate, Normal ROM s pain, No edema - Neuro Neuro: Alert and oriented X 3, busher helper 2-12 intact, No motor deficit, No sensory deficit, Normal speech Eye Opening: Spontaneous Motor: Obeys Commands Verbal: Oriented GCS Score: 15 - Psych Psych: Normal mood, Normal affect Results - Vitals Vitals: Oxygen O2 Source Room air - Labs Labs: Laboratory Tests 08/24/20 23:31 PT 20.5 H INR 1.9 H - Rads (name of study) CT head Radiology: Prelim report reviewed, See rad report CT neck Radiology: Prelim report reviewed, See rad report PD MEDICAL DECISION MAKING - ED course Complexity details: reviewed results, re-evaluated patient, considered differential, d/w patient ED course: NAD during ED stay with no acute/emergent findings on CT neck and CT head. 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 Departure - Departure Disposition: 01 Home, Self Care Clinical Impression: Fall, Cervical sprain, Head contusion Condition: Good Instructions: ED Head Injury Closed Sleep Mon, ED Sprain Strain Neck Follow-Up: Manda Pabon ARNP [Primary Care Provider] - Discharge Date/Time: 08/25/20 02:20
[2020-08-24 23:49] LABS: INR 1.9 (0.8-1.2); PT - PROTHROMBIN TIME 20.5 secs (9.9-12.6)
[2020-08-25] MEDS ORDERED: ACETAMINOPHEN 325 MG TABLET PO STA (00:48)
[2020-08-25 02:04] VITALS: BP 172/89
--- NOTE | 2020-08-25 10:23 | CT Report ---
PROCEDURE: HEAD WO INDICATIONS: fall, head injury, headache, takes warfarin TECHNIQUE: Noncontrast 4.5 mm thick angled axial sections acquired from the foramen magnum to the vertex. For r adiation dose reduction, the following was used: automated exposure control, adjustment of mA and/or kV according to patient size. COMPARISON: 02/08/2020, 12/17/2019, 12/01/2019, 11/09/2019. Correlation is made with the accompanying cer vical spine CT, 08/24/2020. FINDINGS: Image quality: Excellent. CSF spaces: Basal cisterns are patent. No extra-axial fluid collections. Ventricles are normal in size and shape. Brain: No midline shift. No intracranial masses or hemorrhage. Peters-white matter interface is norm al. Brain parenchymal volume loss is seen. Chronic small vessel ischemic change can be seen. Skull and face: Scalp hematoma can be seen posteriorly and on the left, as on series 5 image 25. No underlying calvarial fracture can be seen. Calvarium and visualized facial bones are intact, without suspicious lesions. Sinuses: Visualized sinuses and mastoids are clear. IMPRESSION: Unremarkable intracranial study, without recurrent intracranial hemorrhage. There is left posterior scalp hematoma seen, without an underlying calvarial fracture. Note: No significant discrepancy from the preliminary report. Reviewed by: Gallo Almeida MD on 08/25/2020 9:21 AM LUIS E Approved by: Gallo Almeida MD on 08/25/2020 9:21 AM LUIS E Station ID: [id number]
--- NOTE | 2020-08-25 10:25 | CT Report ---
PROCEDURE: CERVICAL SPINE WO INDICATIONS: fall, left-sided neck pain TECHNIQUE: Noncontrast 3 mm thick sections acquired from the skull base to the T4 level. Sagittal and coronal r eformats were then constructed. For radiation dose reduction, the following was used: automated exp osure control, adjustment of mA and/or kV according to patient size. COMPARISON: 12/17/2019 and 11/09/2019. Correlation is also made with the accompanying head CT, FINDINGS: Image quality: Excellent. Bones: No fractures or dislocations. Visualized superior ribs are intact. There is moderate to severe disc space narrowing at C5-C6 and C6-C7. Partially bridging endplate oste ophytes are seen at these levels. Posteriorly directed endplate osteophytes are seen, which are worst at the C6-C7 level. Focal degenerative change can also be seen involving the C1-C2 interface anterio rly. Milder degenerative changes are seen elsewhere. Soft tissues: Prevertebral soft tissues are normal in thickness. No paravertebral hematomas. No ap ical pneumothoraces. Atherosclerotic calcification is seen. IMPRESSION: No acute fractures can be seen. Cervical spine degenerative changes are seen, which are worst inferiorly. Note: No significant discrepancy from the preliminary report. Reviewed by: Gallo Almeida MD on 08/25/2020 9:23 AM LUIS E Approved by: Gallo Almeida MD on 08/25/2020 9:23 AM LUIS E Station ID: [id number]
== END 2020-08-25 02:20 | disposition home or self-care (01) ==
LOC: EDUNIT# → ED 23:22 → SUPCPDRO 23:22 → ED 08-25 02:20
DX: S13.4XXA Sprain of ligaments of cervical spine, initial encounter (principal); S00.03XA Contusion of scalp, initial encounter; W01.0XXA Fall on same level from slipping, tripping and stumbling without subsequent striking against object, initial encounter; Y93.01 Activity, walking, marching and hiking; Y92.000 Kitchen of unspecified non-institutional (private) residence as the place of occurrence of the external cause; I48.91 Unspecified atrial fibrillation; Z79.01 Long term (current) use of anticoagulants; E10.9 Type 1 diabetes mellitus without complications; I10 Essential (primary) hypertension; M47.812 Spondylosis without myelopathy or radiculopathy, cervical region; M48.02 Spinal stenosis, cervical region
CPT/HCPCS: 36415; 70450; 72125; 85610; 99282; 99284; A9270

== ENCOUNTER 2020-09-14 13:15 | Outpatient (CLI) | payer MEDICARE, MEDICAID ==
[2020-09-18 13:41] LABS: CERULOPLASMIN 31 mg/dL (18-53)
== END 2020-09-14 13:16 | disposition home or self-care (01) ==
LOC: LAB.S 13:15
PROVIDERS: ATTEND Psychiatry & Neurology Neurology
DX: E07.9 Disorder of thyroid, unspecified (principal); G21.9 Secondary parkinsonism, unspecified; E56.9 Vitamin deficiency, unspecified; K90.0 Celiac disease
CPT/HCPCS: 36415; 82390; 82525; 82607; 83516; 84446; 86376; 86800

== ENCOUNTER 2020-10-27 11:35 | Outpatient (CLI) | payer MEDICARE, MEDICAID ==
[2020-10-27 15:23] LABS: BASOPHILS # (AUTO) 0.1 10^3/uL (0.0-0.1); BASOPHILS % (AUTO) 1.3 %; EOSINOPHILS # (AUTO) 0.4 10^3/uL (0.0-0.7); EOSINOPHILS % (AUTO) 5.7 %; HCT - HEMATOCRIT 38.2 % (37.0-47.0); HGB - HEMOGLOBIN 11.8 g/dL (12.0-16.0); LYMPHOCYTES # (AUTO) 1.2 10^3/uL (1.5-3.5); LYMPHOCYTES % (AUTO) 19.5 %; MEAN CORPUSCULAR HGB CONC 30.9 g/dL (32.0-36.0); MEAN CORPUSCULAR VOLUME 93.9 fL (81.0-99.0); MEAN PLATELET VOLUME 9.9 fL (7.9-10.8); MONOCYTES # (AUTO) 0.8 10^3/uL (0.0-1.0); MONOCYTES % (AUTO) 12.6 %; NEUTROPHILS # (AUTO) 3.9 10^3/uL (1.5-6.6); NEUTROPHILS % (AUTO) 60.6 %; PLT - PLATELET COUNT 286 10^3/uL (130-450); RED BLOOD COUNT 4.07 10^6/uL (4.20-5.40); RED CELL DISTRIBUTION WIDTH 12.4 % (12.0-15.0); WHITE BLOOD COUNT 6.4 x10^3/uL (4.8-10.8)
[2020-10-27 16:04] LABS: CREATININE,URINE 112.4 mg/dL; MICROALBUM/CREATININE RATIO,UR 354.1 ug/mg (<30.0); MICROALBUMIN,URINE 39.8 mg/dL (0-300.0)
[2020-10-27 16:50] LABS: ALBUMIN 3.4 g/dL (3.2-5.5); BILIRUBIN,TOTAL 0.7 mg/dL (0.2-1.0); CALCIUM 8.9 mg/dL (8.5-10.3); CREATININE 1.6 mg/dL (0.4-1.0); POTASSIUM 5.4 mmol/L (3.5-5.0); TOTAL PROTEIN 6.8 g/dL (6.7-8.2)
[2020-10-27 22:13] LABS: ESTIMATED AVERAGE GLUCOSE 143 mg/dL (70-100); HEMOGLOBIN A1c% 6.6 % (4.27-6.07)
== END 2020-10-27 11:36 | disposition home or self-care (01) ==
LOC: LAB.S 11:35
PROVIDERS: ATTEND Registered Nurse
DX: I12.9 Hypertensive chronic kidney disease with stage 1 through stage 4 chronic kidney disease, or unspecified chronic kidney disease (principal); E11.22 Type 2 diabetes mellitus with diabetic chronic kidney disease; N18.30 Chronic kidney disease, stage 3 unspecified; E55.9 Vitamin D deficiency, unspecified; E11.49 Type 2 diabetes mellitus with other diabetic neurological complication; R26.81 Unsteadiness on feet
CPT/HCPCS: 36415; 80053; 82043; 82306; 82570; 82728; 83036; 85025

== ENCOUNTER 2020-12-19 08:00 | Outpatient (CLI) | payer MEDICARE, MEDICAID | END 2020-12-19 23:59 | disposition home or self-care (01) | LOC: LAB.S 08:00 | PROVIDERS: ATTEND Emergency Medicine | DX: R39.15 Urgency of urination (principal) | CPT/HCPCS: 87086; 87181 ==

== ENCOUNTER 2021-01-05 08:00 | Outpatient (CLI) | payer MEDICARE, MEDICAID | END 2021-01-05 23:59 | disposition home or self-care (01) | LOC: LAB.S 08:00 | PROVIDERS: ATTEND Physician Assistant Medical | DX: R30.0 Dysuria (principal) | CPT/HCPCS: 87086 ==

== ENCOUNTER 2021-03-04 07:54 | Outpatient (CLI) | payer MEDICARE, MEDICAID | END 2021-03-04 07:55 | disposition critical access hospital (66) | LOC: EMS 07:54 | DX: R10.31 Right lower quadrant pain (principal); W18.30XA Fall on same level, unspecified, initial encounter; Y93.01 Activity, walking, marching and hiking; Y92.009 Unspecified place in unspecified non-institutional (private) residence as the place of occurrence of the external cause | CPT/HCPCS: A0425; A0429 ==

== ENCOUNTER 2021-03-04 08:28 | Inpatient (IN) | payer MEDICARE, MEDICAID ==
--- NOTE | 2021-03-04 08:40 | ED Physician Documentation ---
PD HPI Fall - Stated complaint Stated Complaint: R GROIN PX - History obtained from History obtained from: Patient - History of Present Illness Mechanism of injury: Lost balance Fall distance: Standing position Where injury occurred: Home Timing - onset: Yesterday Injury(ies) location: Head, Neck, Right Lower Extremity Quality of pain: Pain Associated symptoms: No: LOC, AMS, Amnesia, Seizures, Ear drainage, Nasal drainage, Neck pain, Weakness, Paresthesias, Dyspnea, Nausea / vomiting, Hem atemesis, Abdominal distension Symptoms improve with: Rest Worsens with: Movement, Palpation Contributing factors: Anticoagulated Similar symptoms before: Has not had sx before Recently seen: Not recently seen - Additional information Additional information: 75-year-old female with a history of diabetes, COPD, A. fib, pulmonary embolism, chronic kidney disease and hypertension was in her home yesterday in the kitchen holding onto the kitchen counter when she fell backwards. She fell onto the back of her head and landed on her right hip. NO LOC. This happened yesterday she was helped back to bed and this morning when she tried to get out of bed she is having some difficulty with bearing weight on the right side. She was able to stand and pivot for the medics and has no shortening or external rotation. She complains of pain in her groin. She denies illness otherwise. Review of Systems Constitutional: denies: Fever Eyes: denies: Decreased vision Ears: denies: Ear pain Nose: reports: Rhinorrhea / runny nose. denies: Congestion Throat: denies: Sore throat Cardiac: denies: Chest pain / pressure, Palpitations Respiratory: denies: Dyspnea, Cough GI: denies: Abdominal Pain, Nausea, Vomiting : reports: Frequency, Other (urgency). denies: Dysuria Skin: denies: Rash Musculoskeletal: reports: Neck pain, Extremity pain. denies: Back pain Neurologic: reports: Head injury. denies: Generalized weakness, Focal weakness, Numbness, Difficulty speaking, Syncope, Seizure, Confused, Altered mental status, Headache, LOC PD PAST MEDICAL HISTORY - Past Medical History Cardiovascular: Hypertension, Atrial fibrillation Respiratory: COPD, Pneumonia Neuro: Peripheral neuropathy Endocrine/Autoimmune: Type 1 diabetes GI: GERD, Chronic diarrhea : Kidney stones HEENT: Chronic vision loss Psych: Anxiety Musculoskeletal: Osteoarthritis Derm: None - Past Surgical History Past Surgical History: Yes General: Cholecystectomy, Appendectomy Ortho: Other /CLOTHER IN: Tubal ligation, Oophrectomy HEENT: Cataracts - Present Medications Home Medications: Ambulatory Orders Medication Instructions Recorded Confirmed Insulin Degludec [Tresiba 30 unit SUBQ DAILY 10/01/17 08/24/20 Flextouch U-100] Warfarin Sodium 2 mg PO DAILY 10/01/17 08/24/20 amLODIPine [Norvasc] 5 mg PO DAILY PM 10/01/17 08/24/20 Acetaminophen 1,000 mg PO BID PRN 12/08/18 08/24/20 lisinopriL [Lisinopril] 20 mg PO DAILY PM 12/08/18 08/24/20 Ipratropium Bowie [Atrovent Hfa] 12.9 gm IH BID 02/25/19 08/24/20 Warfarin [Coumadin] 3 mg PO DAILY 12/17/19 08/24/20 Oxybutynin [Ditropan] 5 mg PO DAILY 06/22/20 08/24/20 - Allergies Allergies/Adverse Reactions: Allergies Allergy/AdvReac Type Severity Reaction Status Date / Time codeine Allergy Nausea Verified 03/04/21 08:41 - Social History Does the pt smoke?: No Smoking Status: Never smoker Does the pt drink ETOH?: No Does the pt have substance abuse?: No - Immunizations Immunizations are current?: Yes - POLST Patient has POLST: No PD ED PE NORMAL - Vitals Vital signs reviewed: Yes (hypertensive ) - General General: Alert and oriented X 3, No acute distress, Well developed/nourished - HEENT HEENT: Atraumatic, PERRL, EOMI - Neck Neck: Supple, no meningeal sign, Other (midline mid cervical spine tenderness is mild ) - Cardiac Cardiac: No murmur, Other (irregularly irregular rate and rhythm ) - Respiratory Respiratory: No respiratory distress, Other (diminished breath sounds ) - Abdomen Abdomen: Soft, Non tender - Back Back: No CVA TTP, No spinal TTP - Derm Derm: Normal color, Warm and dry, No rash - Extremities Extremities: No deformity, No edema, Other (mild point tenderness to the trochanter and pain with flexion less with rotation. Pain to direct palpation of the superior pubic ramus. 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, No motor deficit, No sensory deficit, Normal speech Eye Opening: Spontaneous Motor: Obeys Commands Verbal: Oriented GCS Score: 15 - Psych Psych: Normal mood, Normal affect Results - Vitals Vitals: Vital Signs - 24 hr 03/04/21 03/04/21 08:29 09:44 Temperature 37.1 C Heart Rate 70 69 Respiratory 16 16 Rate Blood Pressure 168/92 H 140/70 H O2 Saturation 94 96 Oxygen O2 Source Room air - Labs Labs: Laboratory Tests 03/04/21 03/04/21 03/04/21 08:37 08:38 08:38 WBC 8.8 RBC 4.53 Hgb 13.5 Hct 41.4 MCV 91.4 MCH 29.8 MCHC 32.6 RDW 12.7 Plt Count 308 MPV 9.2 Neut # (Auto) 6.6 Lymph # (Auto) 1.0 L Daggett # (Auto) 0.9 Eos # (Auto) 0.2 Baso # (Auto) 0.1 Absolute Nucleated RBC 0.00 Nucleated RBC % 0.0 PT 15.2 H INR 1.4 H Sodium Potassium Chloride Carbon Dioxide Anion Gap BUN Creatinine Estimated GFR (MDRD) Glucose Calcium Total Bilirubin AST ALT Alkaline Phosphatase Total Protein Albumin Globulin Albumin/Globulin Ratio Lipase Urine Color Urine Clarity Urine pH Ur Specific [place] Urine Protein Urine Glucose (UA) Urine Ketones Urine Occult Blood Urine Nitrite Urine Bilirubin Urine Urobilinogen Ur Leukocyte Esterase Urine RBC Urine WBC Ur Squamous Epith Cells Urine Bacteria Ur Microscopic Review Urine Culture Comments Nasal Adenovirus (PCR) NOT DETECTED Nasal B. parapertussis DNA (PCR) NOT DETECTED Nasal Coronavir 229E PCR NOT DETECTED Nasal Coronavir HKU1 PCR NOT DETECTED Nasal Coronavir NL63 PCR NOT DETECTED Nasal Coronavir OC43 PCR NOT DETECTED Nasal Enterovir/Rhinovir PCR NOT DETECTED Nasal Influenza B PCR NOT DETECTED Nasal Influenza A PCR NOT DETECTED Nasal Parainfluen 1 PCR NOT DETECTED Nasal Parainfluen 2 PCR NOT DETECTED Nasal Parainfluen 3 PCR NOT DETECTED Nasal Parainfluen 4 PCR NOT DETECTED Nasal RSV (PCR) NOT DETECTED Nasal B.pertussis DNA PCR NOT DETECTED Nasal C.pneumoniae (PCR) NOT DETECTED Jovi Human Metapneumo PCR NOT DETECTED Nasal M.pneumoniae (PCR) NOT DETECTED Nasal SARS-CoV-2 (PCR) NOT DETECTED 03/04/21 03/04/21 08:38 09:13 WBC RBC Hgb Hct MCV MCH MCHC RDW Plt Count MPV Neut # (Auto) Lymph # (Auto) Daggett # (Auto) Eos # (Auto) Baso # (Auto) Absolute Nucleated RBC Nucleated RBC % PT INR Sodium 138 Potassium 4.7 Chloride 101 Carbon Dioxide 27 Anion Gap 10.0 BUN 43 H Creatinine 1.4 H Estimated GFR (MDRD) 36 L Glucose 127 H Calcium 9.5 Total Bilirubin 1.1 H AST 21 ALT 21 Alkaline Phosphatase 74 Total Protein 7.6 Albumin 3.8 Globulin 3.8 Albumin/Globulin Ratio 1.0 Lipase 56 H Urine Color YELLOW Urine Clarity HAZY Urine pH 6.5 Ur Specific [place] 1.010 Urine Protein 30 H Urine Glucose (UA) NEGATIVE Urine Ketones NEGATIVE Urine Occult Blood TRACE-INTA Urine Nitrite NEGATIVE Urine Bilirubin NEGATIVE Urine Urobilinogen 0.2 (NORMAL) Ur Leukocyte Esterase TRACE H Urine RBC 6-10 H Urine WBC 11-25 H Ur Squamous Epith Cells RARE Squamous Urine Bacteria Moderate H Ur Microscopic Review INDICATED Urine Culture Comments INDICATED Nasal Adenovirus (PCR) Nasal B. parapertussis DNA (PCR) Nasal Coronavir 229E PCR Nasal Coronavir HKU1 PCR Nasal Coronavir NL63 PCR Nasal Coronavir OC43 PCR Nasal Enterovir/Rhinovir PCR Nasal Influenza B PCR Nasal Influenza A PCR Nasal Parainfluen 1 PCR Nasal Parainfluen 2 PCR Nasal Parainfluen 3 PCR Nasal Parainfluen 4 PCR Nasal RSV (PCR) Nasal B.pertussis DNA PCR Nasal C.pneumoniae (PCR) Jovi Human Metapneumo PCR Nasal M.pneumoniae (PCR) Nasal SARS-CoV-2 (PCR) - Rads (name of study) r hip Radiology: Prelim report reviewed (Impression: Nondisplaced right femoral neck cortical irregularity most suggestive of nondisplaced fracture.), EMP read indepedently, See rad report CT head Radiology: Prelim report reviewed (Impression: 1. No acute intracranial process. Moderate atrophy and chronic microvascular ischemic changes.), EMP read indepedently, See rad report CT cervical spine Radiology: Prelim report reviewed (Impression: Multilevel degenerative changes without visualized fracture.), EMP read indepedently, See rad report CT hip Radiology: Prelim report reviewed (Impression: 1. Right femoral subcapital neck fracture. Suggestion of the ligamentum teres avulsion injury.), EMP read indepedently, See rad report PD MEDICAL DECISION MAKING - ED course Complexity details: reviewed results, re-evaluated patient, considered differential, d/w patient, d/w cruise consultant (Dr. Craig is consulted in the case and recommends admission to medicine service for surgical repair.) ED course: 75-year-old female with a history of diabetes COPD A. fib pulmonary embolus chronic kidney disease and hypertension has had a fall in her home injuring the back of her head and neck as well as fracturing her right hip. She had a fall yesterday was unable to bear weight today secondary to pain she does not have rotation or shortening and has a nondisplaced fracture on plain film. A CT of the hip is obtained. The patient has had frequent falls in the past 6 months not hitting her head. On exam she does not have cogwheel rigidity or difficulty with thumb to finger as screening for Parkinson's. Dr. Cruz is consulted in the case and graciously agrees to care for the patient in the hospital. Urinary tract infection is present on urinalysis with clinical correlation with fall and hip fracture. The patient reports symptoms of urgency and frequency unchanged from baseline. Treatment is left up to the hospitalist. Departure - Departure Disposition: [facility] DC/Xfer Clinical Impression: Closed right hip fracture Qualifiers: Encounter type: initial encounter Qualified Code(s): S72.001A - Fracture of unspecified part of neck of right femur, initial encounter for closed fracture
[2021-03-04 08:46] LABS: BASOPHILS # (AUTO) 0.1 10^3/uL (0.0-0.1); EOSINOPHILS # (AUTO) 0.2 10^3/uL (0.0-0.7); EOSINOPHILS % (AUTO) 1.9 %; HCT - HEMATOCRIT 41.4 % (37.0-47.0); HGB - HEMOGLOBIN 13.5 g/dL (12.0-16.0); LYMPHOCYTES % (AUTO) 11.9 %; MEAN CORPUSCULAR HEMOGLOBIN 29.8 pg (27.0-31.0); MEAN CORPUSCULAR HGB CONC 32.6 g/dL (32.0-36.0); MEAN CORPUSCULAR VOLUME 91.4 fL (81.0-99.0); MEAN PLATELET VOLUME 9.2 fL (7.9-10.8); MONOCYTES # (AUTO) 0.9 10^3/uL (0.0-1.0); MONOCYTES % (AUTO) 9.7 %; NEUTROPHILS # (AUTO) 6.6 10^3/uL (1.5-6.6); NEUTROPHILS % (AUTO) 75.2 %; PLT - PLATELET COUNT 308 10^3/uL (130-450); RED BLOOD COUNT 4.53 10^6/uL (4.20-5.40); RED CELL DISTRIBUTION WIDTH 12.7 % (12.0-15.0); WHITE BLOOD COUNT 8.8 x10^3/uL (4.8-10.8)
[2021-03-04 08:51] LABS: INR 1.4 (0.8-1.2); PT - PROTHROMBIN TIME 15.2 secs (9.9-12.6)
[2021-03-04 09:01] LABS: ALBUMIN 3.8 g/dL (3.2-5.5); BILIRUBIN,TOTAL 1.1 mg/dL (0.2-1.0); CALCIUM 9.5 mg/dL (8.5-10.3); CREATININE 1.4 mg/dL (0.4-1.0); POTASSIUM 4.7 mmol/L (3.5-5.0); TOTAL PROTEIN 7.6 g/dL (6.7-8.2)
--- NOTE | 2021-03-04 09:13 | CT Report ---
PROCEDURE: CERVICAL SPINE WO INDICATIONS: polytrauma, critical TECHNIQUE: Noncontrast 3 mm thick sections acquired from the skull base to the T4 level. Sagittal and coronal r eformats were then constructed. For radiation dose reduction, the following was used: automated exp osure control, adjustment of mA and/or kV according to patient size. COMPARISON: CT head 08/24/2020, CT C-spine 08/25/2019, report only. Images are not available for jayda rison. FINDINGS: Image quality: Excellent. Bones: No fractures or dislocations. Visualized superior ribs are intact. Multilevel degenerative changes are present. Soft tissues: Prevertebral soft tissues are normal in thickness. No paravertebral hematomas. No ap ical pneumothoraces. Thyroid gland demonstrates areas of low attenuation and calcification. IMPRESSION: Multilevel degenerative changes without visualized fracture. Reviewed by: Yisel Kumar MD on 03/04/2021 9:12 AM PDT Approved by: Yisel Kumar MD on 03/04/2021 9:12 AM PDT Station ID: [id number]
--- NOTE | 2021-03-04 09:15 | CT Report ---
PROCEDURE: HEAD WO INDICATIONS: polytrauma, critical TECHNIQUE: Noncontrast 4.5 mm thick angled axial sections acquired from the foramen magnum to the vertex. For r adiation dose reduction, the following was used: automated exposure control, adjustment of mA and/or kV according to patient size. COMPARISON: CT head 08/24/2020 report only. FINDINGS: Image quality: Mild motion is present. The ventricular system and cortical sulci demonstrate atrophy, consistent for patient's stated age. There are areas of hypodensity in the periventricular and subcortical white matter. There is no acut e intra or extra-axial fluid collection. No acute hemorrhage, mass lesion or midline shift. Brainst em is unremarkable. Globes are symmetrical. Sinuses are aerated. Osseous structures are intact. IMPRESSION: 1. No acute intracranial process. 2. Moderate atrophy and chronic microvascular ischemic changes. Reviewed by: Yisel Kumar MD on 03/04/2021 9:13 AM PDT Approved by: Yisel Kumar MD on 03/04/2021 9:13 AM PDT Station ID: [id number]
--- NOTE | 2021-03-04 09:17 | XRAY Report ---
PROCEDURE: Hip w/Pelvis 2-3V RT INDICATIONS: fall right hip/pelvis pain TECHNIQUE: AP pelvis with lateral view(s) of the bilateral hip(s). COMPARISON: None. FINDINGS: Bones: Cortical irregularity is noted at the femoral neck on the right. It is nondisplaced. Pelvic ri ng appears intact. No suspicious bony lesions. Soft tissues: The visualized bowel gas pattern is normal. No suspicious soft tissue calcifications. IMPRESSION: Nondisplaced right femoral neck cortical irregularity most suggestive of nondisplaced fr acture. Reviewed by: Yisel Kumar MD on 03/04/2021 9:15 AM PDT Approved by: Yisel Kumar MD on 03/04/2021 9:15 AM PDT Station ID: [id number]
[2021-03-04 09:21] LABS: BILIRUBIN,URINE NEGATIVE (NEGATIVE); GLUCOSE, URINE (UA) NEGATIVE (NEGATIVE); KETONES,URINE (UA) NEGATIVE (NEGATIVE); LEUKOCYTE ESTERASE, URINE TRACE (NEGATIVE); NITRITE,URINE NEGATIVE (NEGATIVE); OCCULT BLOOD,URINE TRACE-INTA (NEGATIVE); PH,URINE 6.5 PH (5.0-7.5); PROTEIN,URINE 30 mg/dL (NEGATIVE); UROBILINOGEN,URINE 0.2 (NORMAL) E.U./dL (NORMAL)
[2021-03-04 09:26] LABS: CLARITY,URINE HAZY (CLEAR)
[2021-03-04 09:32] LABS: BACTERIA,URINE Moderate /HPF (None Seen); SQUAMOUS EPITHELIAL CELL,UR RARE Squamous (<= Few)
--- NOTE | 2021-03-04 10:01 | CT Report ---
PROCEDURE: LOWER EXTREMITY WO - RT INDICATIONS: Right hip fracture, fall. Right hip pain. TECHNIQUE: Noncontrast 3 mm axial sections acquired of the right hip, with coronal and sagittal reformats. COMPARISON: None. FINDINGS: BONES/JOINT: Transverse fracture of the subcapital femur with possible avulsion injury of the ligamen calos teres. The femoral head is seated within the acetabulum. The sacroiliac joint is patent. SOFT TISSUES: Edema about the fracture site. IMPRESSION: 1.Right femoral subcapital fracture. 2.Suggestion of ligamentum teres avulsion injury. Reviewed by: Trevor Berger MD on 03/04/2021 9:59 AM PDT Approved by: Trevor Berger MD on 03/04/2021 9:59 AM PDT Station ID: [id number]
[2021-03-04 10:51] LABS: B. PARAPERTUSSIS- RESP PCR PAN NOT DETECTED; B. PERTUSSIS- RESP PCR PANEL NOT DETECTED; C. PNEUMONIAE- RESP PCR PANEL NOT DETECTED; CORONAVIRUS 229E-RESP PCR NOT DETECTED; CORONAVIRUS HKU1-RESP PCR NOT DETECTED; CORONAVIRUS NL63-RESP PCR NOT DETECTED; CORONAVIRUS OC43-RESP PCR NOT DETECTED; HUMAN METAPNEUMOVIRUS NOT DETECTED; INFLUENZA A- RESP PCR PANEL NOT DETECTED; INFLUENZA B - RESP PCR PANEL NOT DETECTED; M. PNEUMONIAE- RESP PCR PANEL NOT DETECTED; PARAINFLUENZA VIRUS 1 NOT DETECTED; PARAINFLUENZA VIRUS 2 NOT DETECTED; PARAINFLUENZA VIRUS 3 NOT DETECTED; PARAINFLUENZA VIRUS 4 NOT DETECTED; RHINOVIRUS/ENTEROVIRUS NOT DETECTED; RSV- RESP PCR PANEL NOT DETECTED; SARS-CoV-2 -RESP PCR PANEL NOT DETECTED
[2021-03-04] MEDS ORDERED: ZOLPIDEM 5 MG TABLET PO PRN (11:02)
[2021-03-04] MEDS ORDERED: ONDANSETRON 4 MG/2 ML VIAL IVP PRN (11:02)
[2021-03-04] MEDS ORDERED: SODIUM CHLORIDE FLUSH 0.9% 10 ML SYRINGE IVP PRN (11:02)
--- NOTE | 2021-03-04 11:08 | HISTORY & PHYSICAL EXAMINATION ---
Chief Complaint - Chief Complaint Chief Complaint: Fall at home, groin pain History of Present Illness - Admitted From Admitted From:: ED - History Obtained From History obtained from: ED provider and the patient - History of Present Illness HPI Comment/Other: This is a 75-year-old white female with a history of diabetes mellitus, now diet controlled, heavy past smoking history with COPD and no inhalers, dementia, probable Parkinson's disease who lives alone. The daughter lives on her property in an and checks on her every day. The daughter found her mother on the floor of her dwelling unit (in the basement of her house which is being renovated and the first and second floors are guided). She was complaining of pain in the right groin and a headache, having hit her head. There was no syncope, she can remember the entire event. The daughter was able to help the patient get up and guided her into a recliner and later the patient was able to walk to her bed. In the morning the patient experienced more pain and called 911 herself and was brought to the ED. Work-up in the ED shows a nondisplaced fracture of the hip. The patient is being admitted for hip surgery. Needs background information including the following: The patient falls frequently, approximately once a week. The patient lives in the basement of her house which has a cement floor and the family has covered it with rubber pads but it does not cover all the cement areas. The patient has lived in this situation for 13 years because the house above is guarded and has not had remodeling finished. The patient required a department health survey done in 2017, after coming home from [facility]. The [facility] employee was made aware that the basement has no running water, the patient uses bottled water for cooking, bathing and cleaning everything. The basement has rats running around. Despite this the [facility] [employer] employee felt it was habitable. The patient would like to be a full code as discussed with me today. History - Past Medical History Cardiovascular: reports: Hypertension, Atrial fibrillation Respiratory: reports: COPD, Pneumonia, Other (Hx of PE) Neuro: reports: Dementia (Poss vascular dementia vs Parkinsons dementia), Peripheral neuropathy Endocrine/Autoimmune: reports: Type 2 diabetes GI: reports: GERD, Chronic diarrhea : reports: Kidney stones HEENT: reports: Chronic vision loss Psych: reports: Anxiety Musculoskeletal: reports: Osteoarthritis Derm: reports: None MRSA Hx?: No - Past Surgical History General: reports: Cholecystectomy, Appendectomy Ortho: reports: Other /REIMBURSEMENT REP: reports: Tubal ligation, Oophrectomy HEENT: reports: Cataracts - Family & Social History Living arrangement: At home Living Situation: Alone (Lives in basement of house, on daughter's property, daughter gives her daily meds, pt ccoks) Social History Notes: Used to smoke 2PPD, quit age 58. No alcohol or drug use. 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 . No longer drives. Lives in a basement, cement floors covered with pads, has no running water. - Substance History Use: Uses substance without health or social issues: NONE - POLST Patient has POLST: No Meds/Allgy - Home Medications Home Medications: Ambulatory Orders Medication Instructions Recorded Confirmed amLODIPine [Norvasc] 5 mg PO DAILY PM 10/01/17 03/04/21 Acetaminophen 1,000 mg PO BID PRN 12/08/18 03/04/21 lisinopriL [Lisinopril] 20 mg PO DAILY PM 12/08/18 03/04/21 Ipratropium [place] [Atrovent Hfa] 12.9 gm IH BID 02/25/19 03/04/21 Apixaban [Eliquis] 5 mg PO BID 03/04/21 03/04/21 C,E,Zinc,Copper 11/Kgpgp2h/Lut 1 cap PO DAILY 03/04/21 03/04/21 [Ocuvite Adult 50 Plus Softgel] Calcium Carbonate [Calcium] 600 mg PO QPM 03/04/21 03/04/21 Cranberry Fruit Extract [Cranberry] 500 mg PO DAILY 03/04/21 03/04/21 Difluprednate 0.05% Ophth Drop 1 drops EACHEYE BID 03/04/21 03/04/21 [Durezol 0.05% Ophth Drop] Magnesium Oxide [Mag Ox] 400 mg PO QPM 03/04/21 03/04/21 [place]-3/Dha/Epa/Fish Oil [Fish Oil 2 cap PO DAILY 03/04/21 03/04/21 1,000 mg Softgel] Ubidecarenone [Co Q-10] 200 mg PO DAILY 03/04/21 03/04/21 Zinc Gluconate [Zinc] 50 mg PO DAILY 03/04/21 03/04/21 - Allergies Allergies/Adverse Reactions: Allergies Allergy/AdvReac Type Severity Reaction Status Date / Time codeine Allergy Nausea Verified 03/04/21 08:41 milk AdvReac Mild Cramps Verified 03/04/21 13:48 Review of Systems - Cardiovascular Cariovascular: reports: Irregular heart rate - Musculoskeletal Musculoskeletal: reports: Other (Pain) - Neurological Neurological: reports: Other (Frequent falls w/out trauma) - All Other Systems All Other Systems: reports: Reviewed and negative (All ROS obtained from speaking with the daughter at length) Exam - Vital Signs Vital Signs: Vital Signs x48h Temp Pulse Resp BP Pulse Ox 03/04/21 09:44 69 16 140/70 H 96 03/04/21 08:29 37.1 C 70 16 168/92 H 94 - Physical Exam General Appearance: positive: No acute distress, Alert, Other (Flat affect, poor memory) Eyes Bilateral: positive: Normal inspection, EOMI ENT: positive: No signs of dehydration Neck: positive: Nml inspection, No JVD Respiratory: positive: No respiratory distress, Breath sounds nml Cardiovascular: positive: Regular rate & rhythm, No murmur Abdomen: positive: Non-tender, Nml bowel sounds Skin: positive: Warm, Dry Extremities: positive: Non-tender, No pedal edema Neurologic/Psychiatric: positive: CN's nml (2-12), Other (Flat affect, pill- rolling tremor of both hands, restless (moving in bed and picking at sheets, moving all except R leg)) Conclusion/Plan - Problem List (1) Closed right hip fracture Conclusion/Plan: This occurred due to as fall at home onto cement. She will need Ortho surgery. Pain meds prn Qualifiers: Encounter type: initial encounter Qualified Code(s): S72.001A - Fracture of unspecified part of neck of right femur, initial encounter for closed fracture (2) Pre-op evaluation Conclusion/Plan: EGD shows normal sinus rhythm and no pathologic Q waves. Her chest x-ray shows COPD, fibrosis but no vascular congestion. She has no history of CHF or chest pain by her description. There is a history of cerebrovascular disease. She is not using preoperative insulin (for the last 1 month but even more likely for the last 4 years, is probably a diet-controlled diabetic). This patient's revised cardiac risk index gives a class II risk which gives her a 30-day risk of , MS or cardiac arrest at 6%. (3) Fall from ground level Conclusion/Plan: She admits to frequent falls and thinks it's from "being old". Daughter stated that she may have Parkinson's, is being worked up by a Neurologist (Dr Serrato at [facility]). Daughter has installed railings, pads on floor, has Jane but mother never uses it. head landed with this fall). The daughter installed cameras and showed me the video clip of this current fall: the patient was walking with a shuffling gait to the garbage can in the basement, leaned forward to place something into the can and kept falling forward, then fell forward and to the right, hitting her R side of body and her R-posterior head probably on an area with no padding, ie. onto cement. This living situation will not be safe to discharge the patient home to, after SNF rehab post-hip surgery. I communicated this to the daughter and the patient, and to SW. Also, with frequent falls, her Eliquis will be stopped permanently now. Her stroke prophylaxis for Afib will be aspirin. This was communicated to the Orthopedic surgeon. (4) Frequent falls Conclusion/Plan: As per Hx obtained from ther daughter. She has been falling about once a week, none have caused trauma that the daughter knows of, the patient does not pass out. Due to falls, the family has installed rubber mats on her entire basement floor (except some corner areas are not covered and that is where her head landed with this fall). The daughter installed cameras and showed me the video clip of this current fall: the patient was walking with a shuffling gait to the garbage can in the basement, leaned forward to place something into the can and kept falling forward, then fell forward and to the right, hitting her R side of body and her R-posterior head probably on an area with no padding, ie. onto cement. This living situation will not be safe to discharge the patient home to, after SNF rehab post-hip surgery. I communicated this to the daughter and the patient, and to SW. Also, with frequent falls, her Eliquis will be stopped. Her stroke prophylaxis for Afib will be aspirin. This was communicated to the Orthopedic surgeon. (5) Vascular dementia Conclusion/Plan: As per the daughter. Being evaluated by a Neurologist. The patient used to smoke 2 PPD for 40 years (quit 20 yrs ago), and had "30 years of DM that was untrea anabelle" according to the daughter. Will request records from the Neurologist at [facility]. (6) Diet-controlled diabetes mellitus Conclusion/Plan: She had DM her adult life and did not take any meds for it until 4 years ago. She was then prescribed a type of "pen" for injections, but for the entire 4 years, the pt would not inject it subcu, but instead "would depress the syringe and let the liquid run down the skin surface of her thigh". Will order a carb-controlled diet, fingerstick glu checks and sliding scale Insulin for glu coverage. Check A1c with a.m. labs. (7) COPD without exacerbation Conclusion/Plan: She has an 80-pack year smoking Hx, quit 20 yrs ago. She has significant COPD by CXR, uses no puffers at home, per the daughter. Will order nebs prn wheezing here - Lab Results Fish Bones: 03/07/21 04:33 03/07/21 04:33 - Diagnostic Imaging Results Diagnostic Imaging Results: positive: Final report reviewed - EKG Results EKG Interpreted Independently: Yes EKG Comparison: Unchanged from prior EKG EKG Findings: NSR, non-specific J point elevation V1-V2.
--- NOTE | 2021-03-04 12:55 | XRAY Report ---
PROCEDURE: Chest 1 View X-Ray INDICATIONS: Pre-op for hip fracture TECHNIQUE: One view of the chest was acquired. COMPARISON: None currently available. FINDINGS: Surgical changes and devices: None. Lungs and pleura: No pleural effusions or pneumothorax. Lungs are hyperinflated and demonstrate diff use coarsening of interstitial markings. Questionable nodular density is present at the medial right lung base measuring by 1.2 cm. Central arteries are prominent. Mediastinum: Mediastinal contours appear normal. Heart size is at the upper limits of normal. Aort a is atherosclerotic. No central venous congestion. Bones and chest wall: No suspicious bony lesions. Overlying soft tissues appear unremarkable. IMPRESSION: 1. Coarse interstitial markings may indicate chronic edema, emphysema, fibrosis, or interstitial lung disease. 2. Questionable right medial lung base 1.2 cm nodule. Question patient is able, routine chest CT is r ecommended. Reviewed by: Tamara Frye MD on 03/04/2021 12:54 PM PDT Approved by: Tamara Frye MD on 03/04/2021 12:54 PM PDT Station ID: [id number]
[2021-03-04] MEDS: ACETAMINOPHEN 325 MG TABLET PO PRN ×2 (13:40→21:05)
[2021-03-04] MEDS ORDERED: LOPERAMIDE 2 MG CAPSULE PO PRN (13:49)
--- NOTE | 2021-03-04 13:53 | PHARMACY PROGRESS NOTE ---
- Best Possible Medication History Admit Date and Time: 03/04/21 1057 Processed by: Pharmacy Medication History completed: Yes Patient Interview: Completed (PATIENT ABLE TO CONFIRM HOME MEDICATIONS) As the person ultimately responsible for medication therapy, providers are able to order a medication from an existing home medication list in [facility] via the "Reconcile Routine" prior to Confirmation of that medication by life support technician. Such practice is discouraged except when the physician, in their clinical judgment, deems that a medical need exists for a medication without regard to previous use.
[2021-03-04] MEDS ORDERED: ACETAMINOPHEN 500 MG TABLET PO PRN (14:01)
--- NOTE | 2021-03-04 16:01 | HISTORY & PHYSICAL EXAMINATION ---
HPI - Admitted From Admitted from: ED - History Obtained From History obtained from: Patient, Family Exam limitations: Clinical condition, Other (not oriented, recall memory inconsistent) - History of Present Illness Severity at the worst: reports: Severe Pain Quality: reports: Other (pain controlled with bedrest; marked pain with movement right leg) HPI Comment/Other: This is a 75-year-old woman, she is provided some history and her daughter has provided significantly more by telephone. The patient fell last night at home where she normally resides. The fall was unwitnessed but her daughter found her later. She was helped to a chair after being on the floor. She apparently tripped over a floor mat, lost her balance and fell onto right hip. She was ab le to put some weight on the right leg with a cane. This morning when she awoke and she had increasing pain with weightbearing. Because of the pain and difficulty ambulating, plasterer journeyman were called. She does have a fall history. Her daughter states that she falls almost 1 time every week. She has padded floors and other things to try to reduce fall severity. Her daughter lives on the same premises but not in the same building. According to the daughter, living conditions are suboptimal. The patient ambulates with in her house. She does not go outdoors unless the daughter takes her to the grocery store. She goes to the grocery store about once per week. She does have a history of mental confusion. She has been evaluated by neurologist at [facility]. She has had MRI scans of her head and apparently she has vascular dementia and perhaps Parkinson disease as well. Her daughter states she does have a shuffling type of gait and difficulty with balance. She does have a smoking history, 40 years with 2 packs/day which would mean that she is about 80 years cigarette history. She quit smoking at about the age of 58. She had no previous hip problems. She does have a history of diabetes, atrial fibrillation, chronic obstructive pulmonary disease, kidney disease and she is on Eliquis as anticoagulation which she takes twice a day, last dose was yesterday. She was in marked pain about her right groin and upper thigh but the patient is relatively comfortable in bed as long as she is not moved with her right leg is not moved. PMH/PSH - Past Medical History Cardiovascular: positive: Hypertension, Atrial fibrillation Respiratory: positive: COPD, Pneumonia, Other (Hx of PE) Neuro: positive: Dementia (Poss vascular dementia vs Parkinsons), Peripheral neuropathy Endocrine/Autoimmune: positive: Type 2 diabetes GI: positive: GERD, Chronic diarrhea : positive: Kidney stones HEENT: positive: Chronic vision loss Psych: positive: Anxiety Musculoskeletal: positive: Osteoarthritis Derm: positive: None MRSA Hx?: No - Past Surgical History General: positive: Cholecystectomy, Appendectomy Ortho: positive: Other /GEOPHYSICAL PROSPECTING SURVEYOR: positive: Tubal ligation, Oophrectomy HEENT: positive: Cataracts Social & Family Hx - Social History Does the pt smoke?: No Smoking Status: Former smoker Does the pt drink ETOH?: No Does the pt have substance abuse?: No - POLST Patient has POLST: No Meds/Allgy - Home Medications Home Medications: Ambulatory Orders Medication Instructions Recorded Confirmed amLODIPine [Norvasc] 5 mg PO DAILY PM 10/01/17 03/04/21 Acetaminophen 1,000 mg PO BID PRN 12/08/18 03/04/21 lisinopriL [Lisinopril] 20 mg PO DAILY PM 12/08/18 03/04/21 Ipratropium [place] [Atrovent Hfa] 12.9 gm IH BID 02/25/19 03/04/21 Apixaban [Eliquis] 5 mg PO BID 03/04/21 03/04/21 C,E,Zinc,Copper 11/Iccng9z/Lut 1 cap PO DAILY 03/04/21 03/04/21 [Ocuvite Adult 50 Plus Softgel] Calcium Carbonate [Calcium] 600 mg PO QPM 03/04/21 03/04/21 Cranberry Fruit Extract [Cranberry] 500 mg PO DAILY 03/04/21 03/04/21 Difluprednate 0.05% Ophth Drop 1 drops EACHEYE BID 03/04/21 03/04/21 [Durezol 0.05% Ophth Drop] Magnesium Oxide [Mag Ox] 400 mg PO QPM 03/04/21 03/04/21 [place]-3/Dha/Epa/Fish Oil [Fish Oil 2 cap PO DAILY 03/04/21 03/04/21 1,000 mg Softgel] Ubidecarenone [Co Q-10] 200 mg PO DAILY 03/04/21 03/04/21 Zinc Gluconate [Zinc] 50 mg PO DAILY 03/04/21 03/04/21 - Allergies Allergies/Adverse Reactions: Allergies Allergy/AdvReac Type Severity Reaction Status Date / Time codeine Allergy Nausea Verified 03/04/21 08:41 milk AdvReac Mild Cramps Verified 03/04/21 13:48 Exam - Vital Signs Vital Signs: Vital Signs x48h Temp Pulse Pulse Resp BP BP Pulse Ox 03/04/21 12:02 36.8 C 71 16 184/79 H 03/04/21 11:13 71 16 160/70 H 92 03/04/21 10:30 66 16 144/69 H 92 03/04/21 10:00 76 16 169/76 H 95 03/04/21 09:44 69 16 140/70 H 96 03/04/21 08:29 37.1 C 70 16 168/92 H 94 - Physical Exam General Appearance: positive: No acute distress, Alert Respiratory: positive: Chest non-tender Peripheral Pulses: positive: 1+ Abdomen: positive: Non-tender Skin: positive: Color nml, Dry Neurologic/Psychiatric: positive: Disoriented to place, Disoriented to time Comments/Other: Exam of upper extremities are normal. She is able to raise her arms easily above shoulder level. She has no deformity to her lower extremities but does have marked pain with any movement of her right leg. There is no thigh hematoma about the right hip. Skin intact about right hip. Neurovascular is intact to right leg. The left leg has not associated any pain with movement. Results - Lab Results Fish Bones: 03/04/21 08:38 03/04/21 08:38 Other Lab Results: Lab Results x24hrs 03/04/21 03/04/21 03/04/21 Range/Units 09:13 08:38 08:38 WBC (4.8-10.8) x10^3/uL RBC (4.20-5.40) 10^6/uL Hgb (12.0-16.0) g/dL Hct (37.0-47.0) % MCV (81.0-99.0) fL MCH (27.0-31.0) pg MCHC (32.0-36.0) g/dL RDW (12.0-15.0) % Plt Count (130-450) 10^3/uL MPV (7.9-10.8) fL Neut # (Auto) (1.5-6.6) 10^3/uL Lymph # (Auto) (1.5-3.5) 10^3/uL [place] # (Auto) (0.0-1.0) 10^3/uL Eos # (Auto) (0.0-0.7) 10^3/uL Baso # (Auto) (0.0-0.1) 10^3/uL Absolute Nucleated RBC x10^3/uL Nucleated RBC % /100WBC PT (9.9-12.6) secs INR (0.8-1.2) Sodium 138 (135-145) mmol/L Potassium 4.7 (3.5-5.0) mmol/L Chloride 101 (101-111) mmol/L Carbon Dioxide 27 (21-32) mmol/L Anion Gap 10.0 (6-13) BUN 43 H (6-20) mg/dL Creatinine 1.4 H (0.4-1.0) mg/dL Estimated GFR (MDRD) 36 L (>89) Glucose 127 H (70-100) mg/dL Calcium 9.5 (8.5-10.3) mg/dL Total Bilirubin 1.1 H (0.2-1.0) mg/dL AST 21 (10-42) IU/L ALT 21 (10-60) IU/L Alkaline Phosphatase 74 (42-121) IU/L Troponin I High Sens 7.1 (2.3-14.8) ng/L Total Protein 7.6 (6.7-8.2) g/dL Albumin 3.8 (3.2-5.5) g/dL Globulin 3.8 (2.1-4.2) g/dL Albumin/Globulin Ratio 1.0 (1.0-2.2) Lipase 56 H (22-51) U/L Urine Color YELLOW Urine Clarity HAZY (CLEAR) Urine pH 6.5 (5.0-7.5) PH Ur Specific [place] 1.010 (1.002-1.030) Urine Protein 30 H (NEGATIVE) mg/dL Urine Glucose (UA) NEGATIVE (NEGATIVE) mg/dL Urine Ketones NEGATIVE (NEGATIVE) mg/dL Urine Occult Blood TRACE-INTA (NEGATIVE) Urine Nitrite NEGATIVE (NEGATIVE) Urine Bilirubin NEGATIVE (NEGATIVE) Urine Urobilinogen 0.2 (NORMAL) (NORMAL) E.U./dL Ur Leukocyte Esterase TRACE H (NEGATIVE) Urine RBC 6-10 H (0-5) /HPF Urine WBC 11-25 H (0-5) /HPF Ur Squamous Epith Cells RARE Squamous (<= Few) Urine Bacteria Moderate H (None Seen) /HPF Ur Microscopic Review INDICATED Urine Culture Comments INDICATED Nasal Adenovirus (PCR) Nasal B. parapertussis DNA (PCR) Nasal Coronavir 229E PCR Nasal Coronavir HKU1 PCR Nasal Coronavir NL63 PCR Nasal Coronavir OC43 PCR Nasal Enterovir/Rhinovir PCR Nasal Influenza B PCR Nasal Influenza A PCR Nasal Parainfluen 1 PCR Nasal Parainfluen 2 PCR Nasal Parainfluen 3 PCR Nasal Parainfluen 4 PCR Nasal RSV (PCR) Nasal B.pertussis DNA PCR Nasal C.pneumoniae (PCR) Jovi Human Metapneumo PCR Nasal M.pneumoniae (PCR) Nasal SARS-CoV-2 (PCR) 03/04/21 03/04/21 03/04/21 Range/Units 08:38 08:38 08:37 WBC 8.8 (4.8-10.8) x10^3/uL RBC 4.53 (4.20-5.40) 10^6/uL Hgb 13.5 (12.0-16.0) g/dL Hct 41.4 (37.0-47.0) % MCV 91.4 (81.0-99.0) fL MCH 29.8 (27.0-31.0) pg MCHC 32.6 (32.0-36.0) g/dL RDW 12.7 (12.0-15.0) % Plt Count 308 (130-450) 10^3/uL MPV 9.2 (7.9-10.8) fL Neut # (Auto) 6.6 (1.5-6.6) 10^3/uL Lymph # (Auto) 1.0 L (1.5-3.5) 10^3/uL [place] # (Auto) 0.9 (0.0-1.0) 10^3/uL Eos # (Auto) 0.2 (0.0-0.7) 10^3/uL Baso # (Auto) 0.1 (0.0-0.1) 10^3/uL Absolute Nucleated RBC 0.00 x10^3/uL Nucleated RBC % 0.0 /100WBC PT 15.2 H (9.9-12.6) secs INR 1.4 H (0.8-1.2) Sodium (135-145) mmol/L Potassium (3.5-5.0) mmol/L Chloride (101-111) mmol/L Carbon Dioxide (21-32) mmol/L Anion Gap (6-13) BUN (6-20) mg/dL Creatinine (0.4-1.0) mg/dL Estimated GFR (MDRD) (>89) Glucose (70-100) mg/dL Calcium (8.5-10.3) mg/dL Total Bilirubin (0.2-1.0) mg/dL AST (10-42) IU/L ALT (10-60) IU/L Alkaline Phosphatase (42-121) IU/L Troponin I High Sens (2.3-14.8) ng/L Total Protein (6.7-8.2) g/dL Albumin (3.2-5.5) g/dL Globulin (2.1-4.2) g/dL Albumin/Globulin Ratio (1.0-2.2) Lipase (22-51) U/L Urine Color Urine Clarity (CLEAR) Urine pH (5.0-7.5) PH Ur Specific [place] (1.002-1.030) Urine Protein (NEGATIVE) mg/dL Urine Glucose (UA) (NEGATIVE) mg/dL Urine Ketones (NEGATIVE) mg/dL Urine Occult Blood (NEGATIVE) Urine Nitrite (NEGATIVE) Urine Bilirubin (NEGATIVE) Urine Urobilinogen (NORMAL) E.U./dL Ur Leukocyte Esterase (NEGATIVE) Urine RBC (0-5) /HPF Urine WBC (0-5) /HPF Ur Squamous Epith Cells (<= Few) Urine Bacteria (None Seen) /HPF Ur Microscopic Review Urine Culture Comments Nasal Adenovirus (PCR) NOT DETECTED Nasal B. parapertussis DNA (PCR) NOT DETECTED Nasal Coronavir 229E PCR NOT DETECTED Nasal Coronavir HKU1 PCR NOT DETECTED Nasal Coronavir NL63 PCR NOT DETECTED Nasal Coronavir OC43 PCR NOT DETECTED Nasal Enterovir/Rhinovir PCR NOT DETECTED Nasal Influenza B PCR NOT DETECTED Nasal Influenza A PCR NOT DETECTED Nasal Parainfluen 1 PCR NOT DETECTED Nasal Parainfluen 2 PCR NOT DETECTED Nasal Parainfluen 3 PCR NOT DETECTED Nasal Parainfluen 4 PCR NOT DETECTED Nasal RSV (PCR) NOT DETECTED Nasal B.pertussis DNA PCR NOT DETECTED Nasal C.pneumoniae (PCR) NOT DETECTED Jovi Human Metapneumo PCR NOT DETECTED Nasal M.pneumoniae (PCR) NOT DETECTED Nasal SARS-CoV-2 (PCR) NOT DETECTED - Diagnostic Imaging Results Diagnostic Imaging Results: positive: Read independently. negative: Other (Mildly displaced femoral neck fracture right hip with no angulation on lateral view of hip) Impression/Plan - Problem List Problem List: 1. mildly displaced femoral neck fracture right hip, valgus impacted fracture I discussed nonoperative and operative treatment. The daughter would like to proceed with surgical treatment which is quite common for these hip fractures. The choices are percutaneous screw fixation of the right hip versus a h emiarthroplasty of the right hip. The advantages and disadvantages of each procedure were discussed and the planned is to proceed with percutaneous screw fixation of the femoral neck fracture right hip, possible hemiarthroplasty. There is about a 20% failure rate with screw fixation which can lead to the need for hip replacement. The risk, goals and alternatives were discussed including the likelihood of achieving goals, consequences of alternatives, disability and . 2 physicians have witness consent from the patient's daughter and I have also had the same directly from the patient. Unfortunately the patient is not best to make her own decisions. 2. Patient has several comorbidities including what sounds like vascular dementia, possible Parkinson's, chronic anticoagulation, atrial fibrillation, hypertension, chronic kidney disease and chronic obstructive pulmonary disease. She is extremely high fall risk as well. I did discuss with the daughter there is approximately 25% mortality within a year associated with this injury. In addition, no matter how hip fractures are treated there is potential high risk for complications. She also has a history of urinary tract infection and this will be evaluated. The tentative plan is to perform surgery tomorrow. This should allow for the anticoagulation to diminish. The patient will need evaluation by social science professor and supply planner. It sounds like she may not be capable of returning to home because of poor social conditions. She is also being evaluated by Dr. Younger for her medical problems
[2021-03-04] MEDS: INSULIN ASPART 300 UNIT/3 ML PEN SUBQ SCH ×2 (19:05→20:34)
[2021-03-04] MEDS: SODIUM CHLORIDE FLUSH 0.9% 10 ML SYRINGE IVP SCH (19:05)
[2021-03-04] MEDS: KETOROLAC 30 MG/ML VIAL IVP PRN (19:43)
[2021-03-04] MEDS: IPRATROPIUM 0.2 MG/ML NEB INH SCH (20:45)
[2021-03-04] MEDS ORDERED: DIFLUPREDNATE 0.05% EACHEYE SCH (21:00)
[2021-03-04] MEDS ORDERED: IPRATROPIUM BROMIDE AD IH SCH (21:00)
[2021-03-04] MEDS: amLODIPine 5 MG TABLET PO SCH (21:05)
[2021-03-05] MEDS: IPRATROPIUM 0.2 MG/ML NEB INH SCH ×4 (01:44→19:45)
[2021-03-05] MEDS: SODIUM CHLORIDE FLUSH 0.9% 10 ML SYRINGE IVP SCH ×3 (03:15→17:50)
[2021-03-05] MEDS: INSULIN ASPART 300 UNIT/3 ML PEN SUBQ SCH ×4 (07:55→21:53)
[2021-03-05 09:01] LABS: BASOPHILS # (AUTO) 0.1 10^3/uL (0.0-0.1); BASOPHILS % (AUTO) 1.2 %; EOSINOPHILS # (AUTO) 0.5 10^3/uL (0.0-0.7); EOSINOPHILS % (AUTO) 6.9 %; HCT - HEMATOCRIT 37.1 % (37.0-47.0); LYMPHOCYTES # (AUTO) 1.3 10^3/uL (1.5-3.5); LYMPHOCYTES % (AUTO) 17.5 %; MEAN CORPUSCULAR HEMOGLOBIN 29.7 pg (27.0-31.0); MEAN CORPUSCULAR HGB CONC 32.3 g/dL (32.0-36.0); MEAN CORPUSCULAR VOLUME 91.8 fL (81.0-99.0); MEAN PLATELET VOLUME 9.8 fL (7.9-10.8); MONOCYTES # (AUTO) 0.9 10^3/uL (0.0-1.0); MONOCYTES % (AUTO) 11.7 %; NEUTROPHILS # (AUTO) 4.6 10^3/uL (1.5-6.6); NEUTROPHILS % (AUTO) 62.4 %; PLT - PLATELET COUNT 287 10^3/uL (130-450); RED BLOOD COUNT 4.04 10^6/uL (4.20-5.40); RED CELL DISTRIBUTION WIDTH 12.7 % (12.0-15.0); WHITE BLOOD COUNT 7.4 x10^3/uL (4.8-10.8)
[2021-03-05 09:06] LABS: CALCIUM 8.7 mg/dL (8.5-10.3); CREATININE 1.6 mg/dL (0.4-1.0); MAGNESIUM 2.3 mg/dL (1.7-2.8); POTASSIUM 4.6 mmol/L (3.5-5.0)
[2021-03-05] MEDS ORDERED: BACITRACIN ZINC OINT 1 PACKET TOP ONE (09:46)
[2021-03-05] MEDS ORDERED: LIDOCAINE 2%-EPI 1:100000 20 ML MDV ONE (09:47)
[2021-03-05] MEDS ORDERED: BUPIVACAINE 0.5% PF 10 ML VIAL ONE (09:47)
[2021-03-05] MEDS: ASCORBIC ACID 500 MG TABLET PO SCH (09:48)
[2021-03-05] MEDS: ZINC SULFATE 220 MG CAPSULE PO SCH (09:49)
[2021-03-05] MEDS: CALCIUM CARB (OYSTER SHELL) 500 MG TABLET PO SCH (09:49)
[2021-03-05] MEDS: lisinopriL 20 MG TABLET PO SCH (09:49)
[2021-03-05] MEDS: MAGNESIUM OXIDE 400 MG TABLET PO SCH (09:49)
[2021-03-05] MEDS: OMEGA-3 ACID ETHYL ESTERS 1 GM CAPSULE PO SCH (09:50)
[2021-03-05] MEDS: LACTATED RINGERS 1,000 ML IV SCH ×2 (10:39→15:01)
[2021-03-05] MEDS ORDERED: DIFLUPREDNATE 0.05% EACHEYE SCH (10:48)
[2021-03-05] MEDS: DIFLUPREDNATE 0.05% EACHEYE SCH ×2 (10:53→21:54)
--- NOTE | 2021-03-05 11:10 | ANESTHESIA ---
Pre-Anesthesia VS, & Labs - Diagnosis Fx R hip - Procedure R hip percutaneous pinning Vital Signs: Temp Pulse Resp BP Pulse Ox 36.7 C 59 L 18 144/70 H 95 03/05/21 07:41 03/05/21 09:45 03/05/21 09:45 03/05/21 07:41 03/05/21 07:41 Height: 5 ft 3 in Weight (kg): 70 kg Body Mass Index: 27.3 BMI Classification: Overweight - NPO >8 hours - Is Patient ?: No - Lab Results Current Lab Results: Laboratory Tests 03/05/21 04:56: Sodium 137, Potassium 4.6, Chloride 104, Carbon Dioxide 26, Anion Gap 7.0, BUN 47 H, Creatinine 1.6 H, Estimated GFR (MDRD) 31 L, Glucose 90, Calcium 8.7, Magnesium 2.3 03/05/21 04:56: WBC 7.4, RBC 4.04 L, Hgb 12.0, Hct 37.1, MCV 91.8, MCH 29.7, MCHC 32.3, RDW 12.7, Plt Count 287, MPV 9.8, Neut # (Auto) 4.6, Lymph # (Auto) 1.3 L, Bracken # (Auto) 0.9, Eos # (Auto) 0.5, Baso # (Auto) 0.1, Absolute Nucleated RBC 0.00, Nucleated RBC % 0.0 03/05/21 04:56: Uric Acid 7.8 H 03/04/21 08:38: Troponin I High Sens 7.1 03/04/21 08:38: Sodium 138, Potassium 4.7, Chloride 101, Carbon Dioxide 27, Anion Gap 10.0, BUN 43 H, Creatinine 1.4 H, Estimated GFR (MDRD) 36 L, Glucose 127 H, Calcium 9.5, Total Bilirubin 1.1 H, AST 21, ALT 21, Alkaline Phosphatase 74, Total Protein 7.6, Albumin 3.8, Globulin 3.8, Albumin/Globulin Ratio 1.0, Lipase 56 H 03/04/21 08:38: PT 15.2 H, INR 1.4 H 03/04/21 08:38: WBC 8.8, RBC 4.53, Hgb 13.5, Hct 41.4, MCV 91.4, MCH 29.8, MCHC 32.6, RDW 12.7, Plt Count 308, MPV 9.2, Neut # (Auto) 6.6, Lymph # (Auto) 1.0 L, Bracken # (Auto) 0.9, Eos # (Auto) 0.2, Baso # (Auto) 0.1, Absolute Nucleated RBC 0.00, Nucleated RBC % 0.0 Lab results reviewed: Yes Fish Bones: 03/05/21 04:56 03/05/21 04:56 Home Medications and Allergies Home Medications: Ambulatory Orders Apixaban [Eliquis] 5 mg PO BID 03/04/21 C,E,Zinc,Copper 11/Hhaoc3o/Lut [Ocuvite Adult 50 Plus Softgel] 1 cap PO DAILY 03/04/21 Calcium Carbonate [Calcium] 600 mg PO QPM 03/04/21 Cranberry Fruit Extract [Cranberry] 500 mg PO DAILY 03/04/21 Difluprednate 0.05% Ophth Drop [Durezol 0.05% Ophth Drop] 1 drops EACHEYE BID 03/04/21 Magnesium Oxide [Mag Ox] 400 mg PO QPM 03/04/21 Barton-3/Dha/Epa/Fish Oil [Fish Oil 1,000 mg Softgel] 2 cap PO DAILY 03/04/21 Ubidecarenone [Co Q-10] 200 mg PO DAILY 03/04/21 Zinc Gluconate [Zinc] 50 mg PO DAILY 03/04/21 Active Medications Acetaminophen (Acetaminophen 325 Mg Tablet) 650 mg PO Q4HR PRN PRN Reason: Pain 1 to 4 Last Admin: 03/04/21 21:05 Dose: 650 mg Documented by: Amlodipine Besylate (Amlodipine 5 Mg Tablet) 5 mg PO QPM COUNT INCLUDES THE [facility] Last Admin: 03/04/21 21:05 Dose: 5 mg Documented by: Ascorbic Acid (Ascorbic Acid 500 Mg Tablet) 500 mg PO DAILY COUNT INCLUDES THE [facility] Last Admin: 03/05/21 09:48 Dose: 500 mg Documented by: Calcium Carbonate/Glycine (Calcium Carb (Oyster Shell) 500 Mg Tablet) 500 mg PO DAILY COUNT INCLUDES THE [facility] Last Admin: 03/05/21 09:49 Dose: 500 mg Documented by: Lactated Ringer's (Lr) 1,000 mls @ 100 mls/hr IV .Q10H COUNT INCLUDES THE [facility] Stop: 03/06/21 05:59 Last Admin: 03/05/21 10:39 Dose: 100 mls/hr Documented by: Insulin Aspart (Insulin Aspart 300 Unit/3 Ml Pen) 1 - 5 unit SUBQ 0800,1200,1700,2100 COUNT INCLUDES THE [facility]; Protocol Last Admin: 03/05/21 07:55 Dose: Not Given Documented by: Ipratropium [place] (Ipratropium 0.2 Mg/Ml Neb) 0.5 mg INH RTQ6H COUNT INCLUDES THE [facility] Last Admin: 03/05/21 01:44 Dose: Not Given Documented by: Ketorolac Tromethamine (Ketorolac 30 Mg/Ml Vial) 30 mg IVP Q6HR PRN PRN Reason: PAIN Stop: 03/09/21 11:11 Last Admin: 03/04/21 19:43 Dose: 30 mg Documented by: Lisinopril (Lisinopril 20 Mg Tablet) 20 mg PO DAILY COUNT INCLUDES THE [facility] Last Admin: 03/05/21 09:49 Dose: 20 mg Documented by: Loperamide HCl (Loperamide 2 Mg Capsule) 2 mg PO QID PRN PRN Reason: Diarrhea Last Admin: 03/04/21 14:04 Dose: 2 mg Documented by: Magnesium Oxide (Magnesium Oxide 400 Mg Tablet) 400 mg PO DAILYWM COUNT INCLUDES THE [facility] Last Admin: 03/05/21 09:49 Dose: 400 mg Documented by: [id number] Ethyl Esters (Barton-3 Acid Ethyl Esters 1 Gm Capsule) 1 gm PO DAILY COUNT INCLUDES THE [facility] Last Admin: 03/05/21 09:50 Dose: 1 gm Documented by: Ondansetron HCl (Ondansetron 4 Mg/2 Ml Vial) 4 mg IVP Q6HR PRN PRN Reason: Nausea / Vomiting Difluprednate 0.05% Ophth Drop [Durezol 0.05% Ophth Drop] 1 each EACHEYE BID COUNT INCLUDES THE [facility] Last Admin: 03/05/21 10:53 Dose: 1 each Documented by: Sodium Chloride (Sodium Chloride Flush 0.9% 10 Ml Syringe) 10 ml IVP PRN PRN PRN Reason: NEEDED PER PROVIDER ORDERS Sodium Chloride (Sodium Chloride Flush 0.9% 10 Ml Syringe) 10 ml IVP 0100,0900,1700 COUNT INCLUDES THE [facility] Last Admin: 03/05/21 09:50 Dose: 10 ml Documented by: Zinc Sulfate (Zinc Sulfate 220 Mg Capsule) 220 mg PO DAILY COUNT INCLUDES THE [facility] Last Admin: 03/05/21 09:49 Dose: 220 mg Documented by: Zolpidem Tartrate (Zolpidem 5 Mg Tablet) 5 mg PO QPM PRN PRN Reason: Insomnia amLODIPine [Norvasc] 5 mg PO DAILY PM 10/01/17 Acetaminophen 1,000 mg PO BID PRN 12/08/18 lisinopriL [Lisinopril] 20 mg PO DAILY PM 12/08/18 Ipratropium [place] [Atrovent Hfa] 12.9 gm IH BID 02/25/19 Apixaban [Eliquis] 5 mg PO BID 03/04/21 C,E,Zinc,Copper 11/Egioi0f/Lut [Ocuvite Adult 50 Plus Softgel] 1 cap PO DAILY 03/04/21 Calcium Carbonate [Calcium] 600 mg PO QPM 03/04/21 Cranberry Fruit Extract [Cranberry] 500 mg PO DAILY 03/04/21 Difluprednate 0.05% Ophth Drop [Durezol 0.05% Ophth Drop] 1 drops EACHEYE BID 03/04/21 Magnesium Oxide [Mag Ox] 400 mg PO QPM 03/04/21 Barton-3/Dha/Epa/Fish Oil [Fish Oil 1,000 mg Softgel] 2 cap PO DAILY 03/04/21 Ubidecarenone [Co Q-10] 200 mg PO DAILY 03/04/21 Zinc Gluconate [Zinc] 50 mg PO DAILY 03/04/21 Allergies/Adverse Reactions: Allergies Allergy/AdvReac Type Severity Reaction Status Date / Time codeine Allergy Nausea Verified 03/04/21 08:41 milk AdvReac Mild Cramps Verified 03/04/21 13:48 Anes History & Medical History - Anesthetic History Anesthesia Complications: reports: No previous complications Family history of Anesthesia Complications: Denies Family history of Malignant Hyperthermia: Denies - Medical History Cardiovascular: reports: Hypertension, Atrial fibrillation Pulmonary: reports: COPD, Pneumonia, Other (Hx of PE) Gastrointestinal: reports: GERD, Chronic diarrhea Urinary: reports: Kidney stones Neuro: reports: Dementia (Poss vascular dementia vs Parkinsons), Peripheral neuropathy Musculoskeletal: reports: Osteoarthritis Endocrine/Autoimmune: reports: Type 2 diabetes Blood Disorders: reports: None Skin: reports: None Smoking Status: Former smoker History of Cancer?: No - Surgical History General: reports: Cholecystectomy, Appendectomy Eyes Ears Nose Throat (EENT): reports: Cataracts Urologic: reports: Bladder surgery Gynecologic: reports: Tubal ligation, Oophrectomy Orthopedic: reports: Other Exam General: Alert, Oriented x3, Cooperative Dental: Loose/Frag Mouth Openin Fingerbreadth Neck Mobility: Normal Mallampati classification: III Thyromental Distance: 4-6 cm Respiratory: Lungs clear, Normal breath sounds, No respiratory distress, Decreased breath sounds Cardiovascular: Regular rate (anticoagulated for AF (eliquis)) Neurological: Normal speech Mental/Cognitive Status: Alert/Oriented X3, Normal for patient Cognitive Status: Within normal limits Plan Anesthesia Type: General, Fascia Iliaca Block Consent for Procedure(s) Verified and Reviewed: Yes Code Status: Attempt Resuscitation ASA classification: 3-Severe systemic disease Is this case an emergency?: No
[2021-03-05] MEDS ORDERED: ROPIVACAINE 0.5% PF 20 ML AMPULE ONE (11:36)
[2021-03-05] MEDS ORDERED: LIDOCAINE-PF 2% 10 ML AMP SUBQ ONE (11:36)
[2021-03-05] MEDS ORDERED: DEXAMETHASONE 10 MG/ML VIAL ONE (11:37)
[2021-03-05] MEDS ORDERED: PROPOFOL 200 MG/20 ML VIAL IVP ONE (11:38)
[2021-03-05] MEDS ORDERED: SODIUM CHLORIDE 0.9% 10 ML VIAL IVP ONE (11:38)
[2021-03-05] MEDS ORDERED: LIDOCAINE-MPF 2% 5 ML VIAL ONE (11:39)
[2021-03-05] MEDS ORDERED: MIDAZOLAM 2 MG/2 ML VIAL ONE (12:31)
[2021-03-05] MEDS ORDERED: fentaNYL 100 MCG/2 ML VIAL ONE (12:32)
[2021-03-05] MEDS ORDERED: PHENYLEPHRINE 10 MG/ML VIAL ONE (12:39)
[2021-03-05] MEDS ORDERED: ceFAZolin 1 GM VIAL ONE (13:15)
[2021-03-05 13:44] LABS: ESTIMATED AVERAGE GLUCOSE 140 mg/dL (70-100); HEMOGLOBIN A1c% 6.5 % (4.27-6.07)
[2021-03-05] MEDS ORDERED: LACTATED RINGERS 1,000 ML IV ONE (14:12)
--- NOTE | 2021-03-05 14:19 | OPERATIVE REPORT ---
Operative Report - General Admit Date: 03/04/21 Procedure Date: 03/05/21 Planned Procedure: Percutaneous cannulated screw fixation femoral neck fracture right hip Pre-Op Diagnosis: Valgus impacted femoral neck fracture right hip Procedure Performed: Percutaneous cannulated screw fixation femoral neck fracture right hip utilizing Synthes 7.3 mm partially-threaded cancellous screws Post Op Diagnosis: Same as preoperative diagnosis - Procedure Note Primary Surgeon: Melchor Magdaleno MD Anesthesia Provider: Justin Hartley CRNA Anesthesia Technique: General ET tube, Regional block Estimated Blood Loss (mL): 5 Indications: This is a primarily a household ambulator who fell at home the evening prior to admission and landed on her right hip. She was initially able to bear some weight but with increasing difficulty and came in the day after her fall. She had localized pain to her right hip and was found to have a valgus impacted femoral neck fracture of the right hip on both routine x-rays and CT scan of the pelvis and right hip. She did not have any clinical deformity to the right leg but she did have marked pain with any attempted movement to the right leg. She was evaluated preoperatively by her hospitalist. She was felt to be acceptable candidate for surgery. She does have multiple comorbidities including previous history of pulmonary embolus, chronic anticoagulation with Eliquis, chronic obstructive pulmonary disease, atrial fibrillation, diabetes mellitus, frequent falls, past 80-year cigarette pack smoking history and vascular dementia. The procedure was discussed in detail with her daughter and I also discussed with her son prior to surgery. They both are in agreement to the surgery and so was the patient. Neither of her children have power of merchandise planner and the operative consent was signed by to physicians indicating that this was in the best interest of the patient to proceed with surgical stabilization of her fracture. Findings: The findings at the time of surgery were similar to the preoperative radiographs with a valgus impacted femoral neck fracture, no change in position of the fracture since yesterday's x-rays. Complications: None - Other Other Information/Narrative: The patient was brought to the operating room, and given a general endotracheal anesthetic as per the discretion of the roll edge machine operator. The patient was placed in the supine position on the OSI fracture table. The right leg was placed in boot traction but no traction was needed. The well leg was placed in a well-leg trevizo. The right hip and lower extremity were prepped and draped in a sterile manner in the usual fashion. A timeout procedure was performed by the entire operating room team and all were in agreement. A 1 inch superficial incision was made just distal to the greater trochanter. The Synthes 7.3 mm stainless steel cannulated screw set was utilized. The first guide pin was placed distal at the level of lesser trochanter and was placed parallel to the medial calcar. 2 additional guide pins were inserted relatively parallel across the width of the femoral neck. The C arm image intensifier was used intermittently throughout the procedure and biplanar mode. The depth of the pins were measured, lateral cortex open with cannulated drill and the partially-threaded cancellous screws were inserted. One of the screws had a washer, the central most screw of the triangular pattern. There is a screw position and fixation appeared to be very good and permanent C arm images were obtained. The wound was irrigated. Hemostasis was achieved with electrocautery. The skin was closed with 3-0 Monocryl subcuticular suture, Dermabond and a silver impregnated Mepilex dressing. She received 2 g of Ancef intravenously and tolerated the procedure well
[2021-03-05] MEDS ORDERED: METOCLOPRAMIDE 10 MG/2 ML VIAL IVP PRN (14:22)
[2021-03-05] MEDS ORDERED: fentaNYL 100 MCG/2 ML VIAL IVP PRN (14:22)
[2021-03-05] MEDS ORDERED: ePHEDrine 50 MG/ML VIAL IVP PRN (14:22)
[2021-03-05] MEDS ORDERED: ONDANSETRON 4 MG/2 ML VIAL IVP PRN (14:22)
[2021-03-05] MEDS ORDERED: HYDROmorphone 0.5 MG/0.5 ML SYRINGE IVP PRN (14:22)
[2021-03-05] MEDS ORDERED: ATROPINE ABBOJECT 1 MG/10 ML SYRINGE IVP PRN (14:22)
[2021-03-05] MEDS ORDERED: MORPHINE 2 MG/ML CARPUJECT IVP PRN (14:22)
[2021-03-05] MEDS ORDERED: NALOXONE 0.4 MG/ML VIAL IVP PRN (14:22)
--- NOTE | 2021-03-05 14:55 | ANESTHESIA POST OP EVALUATION ---
Anesthesia Post Eval - Post Anesthesia Eval Vitals: Last Vital Signs Temp 36.4 C L 03/05/21 14:40 Pulse 70 03/05/21 14:50 Resp 13 03/05/21 14:50 BP 149/60 H 03/05/21 14:50 Pulse Ox 91 L 03/05/21 14:50 CV Function Including HR & BP: Stable Pain Control: Satisfactory Nausea & Vomiting: Negative Mental Status: Baseline Respiratory Status: Airway Patent Hydration Status: Satisfactory Anesthesia Complications: None
[2021-03-05] MEDS ORDERED: LACTATED RINGERS 1,000 ML IV SCH (15:00)
[2021-03-05] MEDS ORDERED: IPRATROPIUM/ALBUTEROL 3 ML NEB INH PRN (15:23)
[2021-03-05] MEDS ORDERED: ALBUTEROL NEB 2.5 MG/3 ML INH PRN (15:23)
--- NOTE | 2021-03-05 15:27 | PROVIDER PROGRESS NOTE ---
Assessment/Plan - Problem List (1) Closed right hip fracture Qualifiers: Encounter type: initial encounter Qualified Code(s): S72.001A - Fracture of unspecified part of neck of right femur, initial encounter for closed fracture Assessment/Plan: pt had closed Fracture of right hip. pt had hip repair on today. DVT Prophylaxis per surgeon, Continue pain control, Consult With PT and OT, Social work for disposition planning, Continue follow-up with surgeon's Recommendations. (2) Fall from ground level She admits to frequent falls and thinks it's from "being old". pt had fall at home but denies LOC. Daughter stated that she may have Parkinson's, is being worked up by a Neurologist. Daughter has installed railings, pads on floor, has Jane but mother never uses it. There is no shower in her unit. Patient had right hip fracture Due to fall. Patient had right hip repair on today. hold her Eliquis now because of her frequent falls. (3)DM2 A1C is 6.5, continue slide scale, glucose check and Hypoglycemia protocol (4)hx of COPD Stable, it is unlikely she has acute respiratory COPD exacerbation. continue Patient, albuterol as needed and DuoNeb, Supplemental of oxygen as needed. (5)hx of Afib she has SR now, HR is controlled at 71. hold her Eliquis now because of her frequent falls. (6)dementia stable as hx, poor clinic presentation but without behaviour disturbance. 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 nephrotoxic agents - Current Meds Current Meds: Current Medications Generic Name Dose Route Start Last Admin Trade Name Freq PRN Reason Stop Dose Admin Acetaminophen 650 mg 03/04/21 11:02 03/04/21 21:05 Acetaminophen 325 Mg Tablet PO 650 mg Q4HR PRN Administration Pain 1 to 4 Amlodipine Besylate 5 mg 03/04/21 21:00 03/04/21 21:05 Amlodipine 5 Mg Tablet PO 5 mg QPM DEEPAK Administration Ascorbic Acid 500 mg 03/05/21 09:00 03/05/21 09:48 Ascorbic Acid 500 Mg Tablet PO 500 mg DAILY DEEPAK Administration Calcium Carbonate/Glycine 500 mg 03/05/21 09:00 03/05/21 09:49 Calcium Carb (Oyster Shell) 500 Mg Tablet PO 500 mg DAILY DEEPAK Administration Lactated Ringer's 1,000 mls @ 100 mls/hr 03/05/21 10:00 03/05/21 15:01 Lr IV 03/06/21 05:59 100 mls/hr .Q10H DEEPAK Administration Insulin Aspart 1 - 5 unit 03/04/21 17:00 03/05/21 13:09 Insulin Aspart 300 Unit/3 Ml Pen SUBQ Not Given 0800,1200,1700,2100 [facility] Protocol Ipratropium [place] 0.5 mg 03/04/21 19:00 03/05/21 01:44 Ipratropium 0.2 Mg/Ml Neb INH Not Given RTQ6H [facility] Ketorolac Tromethamine 30 mg 03/04/21 11:12 03/04/21 19:43 Ketorolac 30 Mg/Ml Vial IVP 03/09/21 11:11 30 mg Q6HR PRN Administration PAIN Lisinopril 20 mg 03/05/21 09:00 03/05/21 09:49 Lisinopril 20 Mg Tablet PO 20 mg DAILY DEEPAK Administration Loperamide HCl 2 mg 03/04/21 13:49 03/04/21 14:04 Loperamide 2 Mg Capsule PO 2 mg QID PRN Administration Diarrhea Magnesium Oxide 400 mg 03/05/21 08:00 03/05/21 09:49 Magnesium Oxide 400 Mg Tablet PO 400 mg DAILYWM DEEPAK Administration Cfwyc-4-Gwhl Ethyl Esters 1 gm 03/05/21 09:00 03/05/21 09:50 [place]-3 Acid Ethyl Esters 1 Gm Capsule PO 1 gm DAILY DEEPAK Administration Difluprednate 0.05% 1 each 03/05/21 11:00 03/05/21 10:53 Ophth Drop [Durezol EACHEYE 1 each 0.05% Ophth Drop] BID DEEPAK Administration Sodium Chloride 10 ml 03/04/21 17:00 03/05/21 09:50 Sodium Chloride Flush 0.9% 10 Ml Syringe IVP 10 ml 0100,0900,1700 DEEPAK Administration Zinc Sulfate 220 mg 03/05/21 09:00 03/05/21 09:49 Zinc Sulfate 220 Mg Capsule PO 220 mg DAILY DEEPAK Administration - Lab Result Fish Bone Diagrams: 03/05/21 04:56 03/05/21 04:56 - Additional Planning My Orders: My Active Orders 03/05/21 10:00 Lactated Ringers [Lr] 1,000 ml IV 100 mls/hr 03/05/21 15:23 Nebulizer/MDI Tx. [RC] QID Resp Teach Nebulizer/MDI [RC] .ONCE Albuterol 2.5 mg INH RTQ4H PRN Ipratropium/Albuterol [Duoneb] 3 ml INH RTQID PRN 03/06/21 05:00 BMP - BASIC METABOLIC PANEL [CHEM] DAILYLAB CBC - COMP BLD CT W/AUTO DIFF [HEME] DAILYLAB MAGNESIUM [CHEM] DAILYLAB 03/07/21 05:00 BMP - BASIC METABOLIC PANEL [CHEM] DAILYLAB CBC - COMP BLD CT W/AUTO DIFF [HEME] DAILYLAB MAGNESIUM [CHEM] DAILYLAB 03/08/21 05:00 BMP - BASIC METABOLIC PANEL [CHEM] DAILYLAB CBC - COMP BLD CT W/AUTO DIFF [HEME] DAILYLAB 03/09/21 05:00 BMP - BASIC METABOLIC PANEL [CHEM] DAILYLAB CBC - COMP BLD CT W/AUTO DIFF [HEME] DAILYLAB 03/10/21 05:00 BMP - BASIC METABOLIC PANEL [CHEM] DAILYLAB CBC - COMP BLD CT W/AUTO DIFF [HEME] DAILYLAB Subjective - Subjective Nursing Reports: Confused Objective Vital Signs: Vital Signs - 24 hr 03/04/21 03/04/21 03/04/21 16:00 20:45 20:47 Temperature 36.9 C Heart Rate 65 Heart Rate [ 65 63 Brachial] Respiratory 16 18 18 Rate Blood Pressure Blood Pressure 137/66 H 146/69 H [Right Brachial artery] O2 Saturation 93 92 03/05/21 03/05/21 03/05/21 00:29 05:00 07:41 Temperature 36.8 C 36.7 C 36.7 C Heart Rate Heart Rate [ 57 L 58 L 60 Brachial] Respiratory 20 18 18 Rate Blood Pressure Blood Pressure 135/61 H 147/58 H 144/70 H [Right Brachial artery] O2 Saturation 94 95 95 03/05/21 03/05/21 03/05/21 09:45 11:46 14:12 Temperature 36.6 C 36.8 C Heart Rate 59 L 69 Heart Rate [ 66 Brachial] Respiratory 18 18 16 Rate Blood Pressure 145/58 H Blood Pressure 176/61 H [Right Brachial artery] O2 Saturation 95 100 03/05/21 03/05/21 03/05/21 14:15 14:21 14:25 Temperature 36.7 C Heart Rate 65 66 69 Heart Rate [ Brachial] Respiratory 22 22 24 Rate Blood Pressure 143/62 H 144/63 H 139/66 H Blood Pressure [Right Brachial artery] O2 Saturation 100 100 100 03/05/21 03/05/21 03/05/21 14:30 14:35 14:40 Temperature 36.4 C L Heart Rate 74 74 76 Heart Rate [ Brachial] Respiratory 25 H 24 19 Rate Blood Pressure 140/65 H 145/64 H 144/71 H Blood Pressure [Right Brachial artery] O2 Saturation 93 93 96 03/05/21 03/05/21 14:50 15:05 Temperature Heart Rate Heart Rate [ 70 71 Brachial] Respiratory 13 12 Rate Blood Pressure Blood Pressure 149/60 H 140/51 H [Right Brachial artery] O2 Saturation 91 L 92 Oxygen O2 Source Nasal cannula I&O (Last 24 Hrs): Intake and Output Totals x24h 03/03/21 03/04/21 03/05/21 23:59 23:59 23:59 Intake Total 200 330 Output Total 550 550 Balance -350 -220 General: Alert, No acute distress HEENT: Atraumatic Neck: Supple Lymphatic: no adenopathy Neuro: Alert, Non Focal Cardiovascular: Regular rate, Normal S1, Normal S2 Respiratory: Chest non-tender, No respiratory distress Abdomen: Normal bowel sounds, Soft Extremities: Normal pulses - Results Results: Laboratory Results WBC 7.4 x10^3/uL (4.8-10.8) 03/05/21 04:56 RBC 4.04 10^6/uL (4.20-5.40) L 03/05/21 04:56 Hgb 12.0 g/dL (12.0-16.0) 03/05/21 04:56 Hct 37.1 % (37.0-47.0) 03/05/21 04:56 MCV 91.8 fL (81.0-99.0) 03/05/21 04:56 MCH 29.7 pg (27.0-31.0) 03/05/21 04:56 MCHC 32.3 g/dL (32.0-36.0) 03/05/21 04:56 RDW 12.7 % (12.0-15.0) 03/05/21 04:56 Plt Count 287 10^3/uL (130-450) 03/05/21 04:56 MPV 9.8 fL (7.9-10.8) 03/05/21 04:56 Neut # (Auto) 4.6 10^3/uL (1.5-6.6) 03/05/21 04:56 Lymph # (Auto) 1.3 10^3/uL (1.5-3.5) L 03/05/21 04:56 [place] # (Auto) 0.9 10^3/uL (0.0-1.0) 03/05/21 04:56 Eos # (Auto) 0.5 10^3/uL (0.0-0.7) 03/05/21 04:56 Baso # (Auto) 0.1 10^3/uL (0.0-0.1) 03/05/21 04:56 Absolute Nucleated RBC 0.00 x10^3/uL 03/05/21 04:56 Nucleated RBC % 0.0 /100WBC 03/05/21 04:56 PT 15.2 secs (9.9-12.6) H 03/04/21 08:38 INR 1.4 (0.8-1.2) H 03/04/21 08:38 Sodium 137 mmol/L (135-145) 03/05/21 04:56 Potassium 4.6 mmol/L (3.5-5.0) 03/05/21 04:56 Chloride 104 mmol/L (101-111) 03/05/21 04:56 Carbon Dioxide 26 mmol/L (21-32) 03/05/21 04:56 Anion Gap 7.0 (6-13) 03/05/21 04:56 BUN 47 mg/dL (6-20) H 03/05/21 04:56 Creatinine 1.6 mg/dL (0.4-1.0) H 03/05/21 04:56 Estimated GFR (MDRD) 31 (>89) L 03/05/21 04:56 Glucose 90 mg/dL (70-100) 03/05/21 04:56 Estimat Average Glucose 140 mg/dL (70-100) H 03/05/21 04:56 Hemoglobin A1c % 6.5 % (4.27-6.07) H 03/05/21 04:56 Uric Acid 7.8 mg/dL (2.6-7.2) H 03/05/21 04:56 Calcium 8.7 mg/dL (8.5-10.3) 03/05/21 04:56 Magnesium 2.3 mg/dL (1.7-2.8) 03/05/21 04:56 Total Bilirubin 1.1 mg/dL (0.2-1.0) H 03/04/21 08:38 AST 21 IU/L (10-42) 03/04/21 08:38 ALT 21 IU/L (10-60) 03/04/21 08:38 Alkaline Phosphatase 74 IU/L (42-121) 03/04/21 08:38 Troponin I High Sens 7.1 ng/L (2.3-14.8) 03/04/21 08:38 Total Protein 7.6 g/dL (6.7-8.2) 03/04/21 08:38 Albumin 3.8 g/dL (3.2-5.5) 03/04/21 08:38 Globulin 3.8 g/dL (2.1-4.2) 03/04/21 08:38 Albumin/Globulin Ratio 1.0 (1.0-2.2) 03/04/21 08:38 Lipase 56 U/L (22-51) H 03/04/21 08:38 Urine Color YELLOW 03/04/21 09:13 Urine Clarity HAZY (CLEAR) 03/04/21 09:13 Urine pH 6.5 PH (5.0-7.5) 03/04/21 09:13 Ur Specific [place] 1.010 (1.002-1.030) 03/04/21 09:13 Urine Protein 30 mg/dL (NEGATIVE) H 03/04/21 09:13 Urine Glucose (UA) NEGATIVE mg/dL (NEGATIVE) 03/04/21 09:13 Urine Ketones NEGATIVE mg/dL (NEGATIVE) 03/04/21 09:13 Urine Occult Blood TRACE-INTA (NEGATIVE) 03/04/21 09:13 Urine Nitrite NEGATIVE (NEGATIVE) 03/04/21 09:13 Urine Bilirubin NEGATIVE (NEGATIVE) 03/04/21 09:13 Urine Urobilinogen 0.2 (NORMAL) E.U./dL (NORMAL) 03/04/21 09:13 Ur Leukocyte Esterase TRACE (NEGATIVE) H 03/04/21 09:13 Urine RBC 6-10 /HPF (0-5) H 03/04/21 09:13 Urine WBC 11-25 /HPF (0-5) H 03/04/21 09:13 Ur Squamous Epith Cells RARE Squamous (<= Few) 03/04/21 09:13 Urine Bacteria Moderate /HPF (None Seen) H 03/04/21 09:13 Ur Microscopic Review INDICATED 03/04/21 09:13 Urine Culture Comments INDICATED 03/04/21 09:13 Nasal Adenovirus (PCR) NOT DETECTED 03/04/21 08:37 Nasal B. parapertussis DNA (PCR) NOT DETECTED 03/04/21 08:37 Nasal Coronavir 229E PCR NOT DETECTED 03/04/21 08:37 Nasal Coronavir HKU1 PCR NOT DETECTED 03/04/21 08:37 Nasal Coronavir NL63 PCR NOT DETECTED 03/04/21 08:37 Nasal Coronavir OC43 PCR NOT DETECTED 03/04/21 08:37 Nasal Enterovir/Rhinovir PCR NOT DETECTED 03/04/21 08:37 Nasal Influenza B PCR NOT DETECTED 03/04/21 08:37 Nasal Influenza A PCR NOT DETECTED 03/04/21 08:37 Nasal Parainfluen 1 PCR NOT DETECTED 03/04/21 08:37 Nasal Parainfluen 2 PCR NOT DETECTED 03/04/21 08:37 Nasal Parainfluen 3 PCR NOT DETECTED 03/04/21 08:37 Nasal Parainfluen 4 PCR NOT DETECTED 03/04/21 08:37 Nasal RSV (PCR) NOT DETECTED 03/04/21 08:37 Nasal B.pertussis DNA PCR NOT DETECTED 03/04/21 08:37 Nasal C.pneumoniae (PCR) NOT DETECTED 03/04/21 08:37 Fernanda Human Metapneumo PCR NOT DETECTED 03/04/21 08:37 Nasal M.pneumoniae (PCR) NOT DETECTED 03/04/21 08:37 Nasal SARS-CoV-2 (PCR) NOT DETECTED 03/04/21 08:37 - Procedures Procedures: Procedures REPLACEMENT OF LEFT LENS WITH SYNTH SUB, PERC APPROACH (11/19/17) REPLACEMENT OF RIGHT LENS WITH SYNTH SUB, PERC APPROACH (10/01/17) ABX Reporting Has patient been on IV antibiotics over the past 48 hours?: No Current Medications - Current Medications Current Medications: Active Medications Acetaminophen (Acetaminophen 325 Mg Tablet) 650 mg PO Q4HR PRN PRN Reason: Pain 1 to 4 Last Admin: 03/04/21 21:05 Dose: 650 mg Documented by: Albuterol (Albuterol Neb 2.5 Mg/3 Ml) 2.5 mg INH RTQ4H PRN PRN Reason: Wheezing Albuterol/Ipratropium (Ipratropium/Albuterol 3 Ml Neb) 3 ml INH RTQID PRN PRN Reason: Shortness of Air/Wheezing Alcohol (Ethyl Alcohol 62% Swab Ampule) 1 amp FERNANDA BID [facility] Amlodipine Besylate (Amlodipine 5 Mg Tablet) 5 mg PO QPM [facility] Last Admin: 03/04/21 21:05 Dose: 5 mg Documented by: Ascorbic Acid (Ascorbic Acid 500 Mg Tablet) 500 mg PO DAILY [facility] Last Admin: 03/05/21 09:48 Dose: 500 mg Documented by: Calcium Carbonate/Glycine (Calcium Carb (Oyster Shell) 500 Mg Tablet) 500 mg PO DAILY [facility] Last Admin: 03/05/21 09:49 Dose: 500 mg Documented by: Lactated Ringer's (Lr) 1,000 mls @ 100 mls/hr IV .Q10H DEEPAK Stop: 03/06/21 05:59 Last Admin: 03/05/21 15:01 Dose: 100 mls/hr Documented by: Cefazolin Sodium 2 gm/ Sodium (Chloride) 100 mls @ 200 mls/hr IV Q8HR [facility] Stop: 03/06/21 06:29 Insulin Aspart (Insulin Aspart 300 Unit/3 Ml Pen) 1 - 5 unit SUBQ 0800,1200,1700,2100 [facility]; Protocol Last Admin: 03/05/21 13:09 Dose: Not Given Documented by: Ipratropium [place] (Ipratropium 0.2 Mg/Ml Neb) 0.5 mg INH RTQ6H DEEPAK Last Admin: 03/05/21 01:44 Dose: Not Given Documented by: Ketorolac Tromethamine (Ketorolac 30 Mg/Ml Vial) 30 mg IVP Q6HR PRN PRN Reason: PAIN Stop: 03/09/21 11:11 Last Admin: 03/04/21 19:43 Dose: 30 mg Documented by: Lisinopril (Lisinopril 20 Mg Tablet) 20 mg PO DAILY [facility] Last Admin: 03/05/21 09:49 Dose: 20 mg Documented by: Loperamide HCl (Loperamide 2 Mg Capsule) 2 mg PO QID PRN PRN Reason: Diarrhea Last Admin: 03/04/21 14:04 Dose: 2 mg Documented by: Magnesium Oxide (Magnesium Oxide 400 Mg Tablet) 400 mg PO DAILYWM [facility] Last Admin: 03/05/21 09:49 Dose: 400 mg Documented by: Dhrrv-5-Cmlv Ethyl Esters ([place]-3 Acid Ethyl Esters 1 Gm Capsule) 1 gm PO DAILY [facility] Last Admin: 03/05/21 09:50 Dose: 1 gm Documented by: Ondansetron HCl (Ondansetron 4 Mg/2 Ml Vial) 4 mg IVP Q6HR PRN PRN Reason: Nausea / Vomiting Pantoprazole Sodium (Pantoprazole 40 Mg Tablet) 40 mg PO QDAC [facility] Difluprednate 0.05% Ophth Drop [Durezol 0.05% Ophth Drop] 1 each EACHEYE BID [facility] Last Admin: 03/05/21 10:53 Dose: 1 each Documented by: Sodium Chloride (Sodium Chloride Flush 0.9% 10 Ml Syringe) 10 ml IVP PRN PRN PRN Reason: NEEDED PER PROVIDER ORDERS Sodium Chloride (Sodium Chloride Flush 0.9% 10 Ml Syringe) 10 ml IVP 0100,0900,1700 [facility] Last Admin: 03/05/21 09:50 Dose: 10 ml Documented by: Zinc Sulfate (Zinc Sulfate 220 Mg Capsule) 220 mg PO DAILY [facility] Last Admin: 03/05/21 09:49 Dose: 220 mg Documented by: Zolpidem Tartrate (Zolpidem 5 Mg Tablet) 5 mg PO QPM PRN PRN Reason: Insomnia amLODIPine [Norvasc] 5 mg PO DAILY PM 10/01/17 Acetaminophen 1,000 mg PO BID PRN 12/08/18 lisinopriL [Lisinopril] 20 mg PO DAILY PM 12/08/18 Ipratropium [place] [Atrovent Hfa] 12.9 gm IH BID 02/25/19 Apixaban [Eliquis] 5 mg PO BID 03/04/21 C,E,Zinc,Copper 11/Zdvib3s/Lut [Ocuvite Adult 50 Plus Softgel] 1 cap PO DAILY 03/04/21 Calcium Carbonate [Calcium] 600 mg PO QPM 03/04/21 Cranberry Fruit Extract [Cranberry] 500 mg PO DAILY 03/04/21 Difluprednate 0.05% Ophth Drop [Durezol 0.05% Ophth Drop] 1 drops EACHEYE BID 03/04/21 Magnesium Oxide [Mag Ox] 400 mg PO QPM 03/04/21 [place]-3/Dha/Epa/Fish Oil [Fish Oil 1,000 mg Softgel] 2 cap PO DAILY 03/04/21 Ubidecarenone [Co Q-10] 200 mg PO DAILY 03/04/21 Zinc Gluconate [Zinc] 50 mg PO DAILY 03/04/21
[2021-03-05 21:18] LABS: HGB - HEMOGLOBIN 12.5 g/dL (12.0-16.0)
[2021-03-05] MEDS: amLODIPine 5 MG TABLET PO SCH (21:37)
[2021-03-05] MEDS: KETOROLAC 30 MG/ML VIAL IVP PRN (21:38)
[2021-03-05] MEDS: ACETAMINOPHEN 325 MG TABLET PO PRN (21:38)
[2021-03-05] MEDS: ceFAZolin 2 GM in SODIUM CHLORIDE 0.9% 100ML 100 ML IV SCH (21:45)
[2021-03-05] MEDS: ethyl alcohoL 62% SWAB AMPULE NAS SCH (21:54)
[2021-03-06] MEDS: SODIUM CHLORIDE FLUSH 0.9% 10 ML SYRINGE IVP SCH ×3 (01:33→17:06)
[2021-03-06 04:59] LABS: BASOPHILS % (AUTO) 0.2 %; EOSINOPHILS # (AUTO) 0.2 10^3/uL (0.0-0.7); EOSINOPHILS % (AUTO) 1.5 %; HCT - HEMATOCRIT 37.1 % (37.0-47.0); HGB - HEMOGLOBIN 12.2 g/dL (12.0-16.0); LYMPHOCYTES # (AUTO) 0.5 10^3/uL (1.5-3.5); LYMPHOCYTES % (AUTO) 3.9 %; MEAN CORPUSCULAR HGB CONC 32.9 g/dL (32.0-36.0); MEAN CORPUSCULAR VOLUME 91.2 fL (81.0-99.0); MEAN PLATELET VOLUME 9.8 fL (7.9-10.8); MONOCYTES # (AUTO) 0.6 10^3/uL (0.0-1.0); MONOCYTES % (AUTO) 5.4 %; NEUTROPHILS # (AUTO) 10.2 10^3/uL (1.5-6.6); NEUTROPHILS % (AUTO) 88.7 %; PLT - PLATELET COUNT 285 10^3/uL (130-450); RED BLOOD COUNT 4.07 10^6/uL (4.20-5.40); RED CELL DISTRIBUTION WIDTH 12.4 % (12.0-15.0); WHITE BLOOD COUNT 11.5 x10^3/uL (4.8-10.8)
[2021-03-06 05:03] LABS: CALCIUM 9.1 mg/dL (8.5-10.3); CREATININE 1.5 mg/dL (0.4-1.0); MAGNESIUM 2.1 mg/dL (1.7-2.8); POTASSIUM 4.5 mmol/L (3.5-5.0)
[2021-03-06] MEDS: IPRATROPIUM 0.2 MG/ML NEB INH SCH (05:45)
[2021-03-06] MEDS: ceFAZolin 2 GM in SODIUM CHLORIDE 0.9% 100ML 100 ML IV SCH (06:27)
[2021-03-06] MEDS: PANTOPRAZOLE 40 MG TABLET PO SCH (06:30)
--- NOTE | 2021-03-06 08:48 | XRAY Report ---
PROCEDURE: Chest 1 View X-Ray INDICATIONS: Shortness of breath TECHNIQUE: One view of the chest was acquired. COMPARISON: March 04, 2021 FINDINGS: SUPPORT DEVICES: None. LUNGS/PLEURA: Coarsened interstitial markings. No focal consolidation, pleural effusion or space-occu pying pneumothorax. MEDIASTINUM: The cardiomediastinal silhouette is within normal limits. BONES/SOFT TISSUES: No acute abnormality. IMPRESSION: 1.No acute cardiopulmonary abnormality. Nonvisualization of the previously seen nodular density in the medial right lower lung zone. Consider CT chest for further evaluation. Reviewed by: Trevor Berger MD on 03/06/2021 8:46 AM PDT Approved by: Trevor Berger MD on 03/06/2021 8:46 AM PDT Station ID: [id number]
[2021-03-06] MEDS ORDERED: LACTATED RINGERS 1,000 ML IV SCH ×2 (09:00→18:35)
[2021-03-06] MEDS: polyethylene glycoL 3350 17 GM PACKET PO SCH (09:26)
[2021-03-06] MEDS: ASCORBIC ACID 500 MG TABLET PO SCH (09:26)
[2021-03-06] MEDS: ZINC SULFATE 220 MG CAPSULE PO SCH (09:27)
[2021-03-06] MEDS: lisinopriL 20 MG TABLET PO SCH (09:27)
[2021-03-06] MEDS: OMEGA-3 ACID ETHYL ESTERS 1 GM CAPSULE PO SCH (09:27)
[2021-03-06] MEDS: CALCIUM CARB (OYSTER SHELL) 500 MG TABLET PO SCH (09:27)
[2021-03-06] MEDS: MAGNESIUM OXIDE 400 MG TABLET PO SCH (09:28)
[2021-03-06] MEDS: INSULIN ASPART 300 UNIT/3 ML PEN SUBQ SCH ×4 (09:28→21:00)
[2021-03-06] MEDS: DIFLUPREDNATE 0.05% EACHEYE SCH ×2 (09:29→21:21)
[2021-03-06] MEDS: ethyl alcohoL 62% SWAB AMPULE NAS SCH ×2 (09:29→20:53)
[2021-03-06] MEDS: cefTRIAXone 1 GM in SODIUM CHLORIDE 0.9% MINIBAG 100 ML IV SCH (10:48)
[2021-03-06] MEDS ORDERED: ASPIRIN CHEW 81 MG TABLET PO SCH (14:00)
[2021-03-06] MEDS ORDERED: APIXABAN 5 MG TABLET PO SCH (14:00)
--- NOTE | 2021-03-06 14:05 | PROVIDER PROGRESS NOTE ---
Assessment/Plan - Problem List (1) Closed right hip fracture Qualifiers: Encounter type: initial encounter Qualified Code(s): S72.001A - Fracture of unspecified part of neck of right femur, initial encounter for closed fracture Assessment/Plan: 03/06 today is day 1 s/p right hip repair. per literature, Eliquis is favorably DVT prophylaxis after hip repair. Patient take Eliquis in the home. Continue pain control, continue PT and OT evaluation and treatment. consulted with Social work for disposition planning pt had closed Fracture of right hip. pt had hip repair on today. DVT Prophylaxis per surgeon, Continue pain control, Consult With PT and OT, Social work for disposition planning, Continue follow-up with surgeon's Recommendations. (2) Fall from ground level She admits to frequent falls and thinks it's from "being old". pt had fall at home but denies LOC. Daughter stated that she may have Parkinson's, is being worked up by a Neurologist. Daughter has installed railings, pads on floor, has Jane but mother never uses it. There is no shower in her unit. Patient had right hip fracture Due to fall. Patient had right hip repair on today. hold her Eliquis now because of her frequent falls. (3)UTI 03/06 Patient did report dysuria. UA culture show positive E. coli, Patient also had slightly elevated WBC. We will give patient Rocephin and probiotics (4)DM2 A1C is 6.5, continue slide scale, glucose check and Hypoglycemia protocol (5)hx of COPD Stable, it is unlikely she has acute respiratory COPD exacerbation. continue Patient, albuterol as needed and DuoNeb, Supplemental of oxygen as needed. (6)hx of Afib she has SR now, HR is controlled at 71. we might hold her Eliquis after d/c because of her frequent falls (7)dementia stable as hx, poor clinic presentation but without behaviour disturbance. 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 agents - Current Meds Current Meds: Current Medications Generic Name Dose Route Start Last Admin Trade Name Freq PRN Reason Stop Dose Admin Acetaminophen 650 mg 03/04/21 11:02 03/05/21 21:38 Acetaminophen 325 Mg Tablet PO 650 mg Q4HR PRN Administration Pain 1 to 4 Alcohol 1 amp 03/05/21 21:00 03/06/21 09:29 Ethyl Alcohol 62% Swab Ampule FERNANDA 1 amp BID DEEPAK Administration Amlodipine Besylate 5 mg 03/04/21 21:00 03/05/21 21:37 Amlodipine 5 Mg Tablet PO 5 mg QPM DEEPAK Administration Ascorbic Acid 500 mg 03/05/21 09:00 03/06/21 09:26 Ascorbic Acid 500 Mg Tablet PO 500 mg DAILY DEEPAK Administration Calcium Carbonate/Glycine 500 mg 03/05/21 09:00 03/06/21 09:27 Calcium Carb (Oyster Shell) 500 Mg Tablet PO 500 mg DAILY DEEPAK Administration Lactated Ringer's 1,000 mls @ 100 mls/hr 03/06/21 09:00 03/06/21 11:04 Lr IV 03/07/21 04:59 100 mls/hr .Q10H DEEPAK Administration Ceftriaxone Sodium 1 gm/ 100 mls @ 200 mls/hr 03/06/21 09:00 03/06/21 12:53 Sodium Chloride IV Infused DAILY DEEPAK Infusion Insulin Aspart 1 - 5 unit 03/04/21 17:00 03/06/21 12:42 Insulin Aspart 300 Unit/3 Ml Pen SUBQ 1 unit 0800,1200,1700,2100 DEEPAK Administration Protocol Ketorolac Tromethamine 30 mg 03/04/21 11:12 03/05/21 21:38 Ketorolac 30 Mg/Ml Vial IVP 03/09/21 11:11 30 mg Q6HR PRN Administration PAIN Lisinopril 20 mg 03/05/21 09:00 03/06/21 09:27 Lisinopril 20 Mg Tablet PO 20 mg DAILY DEEPAK Administration Loperamide HCl 2 mg 03/04/21 13:49 03/04/21 14:04 Loperamide 2 Mg Capsule PO 2 mg QID PRN Administration Diarrhea Magnesium Oxide 400 mg 03/05/21 08:00 03/06/21 09:28 Magnesium Oxide 400 Mg Tablet PO 400 mg DAILYWM DEEPAK Administration Fiuf[place]-2-Eyqg Ethyl Esters 1 gm 03/05/21 09:00 03/06/21 09:27 [place]-3 Acid Ethyl Esters 1 Gm Capsule PO 1 gm DAILY DEEPAK Administration Pantoprazole Sodium 40 mg 03/06/21 07:00 03/06/21 06:30 Pantoprazole 40 Mg Tablet PO 40 mg QDAC DEEPAK Administration Difluprednate 0.05% 1 each 03/05/21 11:00 03/06/21 09:29 Ophth Drop [Durezol EACHEYE 1 each 0.05% Ophth Drop] BID DEEPAK Administration Polyethylene Glycol 17 gm 03/06/21 09:00 03/06/21 09:26 Polyethylene Glycol 3350 17 Gm Packet PO 17 gm DAILY DEEPAK Administration Sodium Chloride 10 ml 03/04/21 11:02 03/05/21 21:40 Sodium Chloride Flush 0.9% 10 Ml Syringe IVP 10 ml PRN PRN Administration NEEDED PER PROVIDER ORDERS Sodium Chloride 10 ml 03/04/21 17:00 03/06/21 11:04 Sodium Chloride Flush 0.9% 10 Ml Syringe IVP Not Given 0100,0900,1700 DEEPAK Zinc Sulfate 220 mg 03/05/21 09:00 03/06/21 09:27 Zinc Sulfate 220 Mg Capsule PO 220 mg DAILY DEEPAK Administration - Lab Result Fish Bone Diagrams: 03/06/21 04:31 03/06/21 04:31 - Additional Planning My Orders: My Active Orders 03/05/21 15:23 Resp Teach Nebulizer/MDI [RC] .ONCE Albuterol 2.5 mg INH RTQ4H PRN Ipratropium/Albuterol [Duoneb] 3 ml INH RTQID PRN 03/05/21 Dinner Carb-controlled Diet [DIET] 03/05/21 18:38 Incentive Spirometry - RT [RC] TID 03/06/21 07:00 Pantoprazole [Protonix] 40 mg PO QDAC 03/06/21 09:00 Lactated Ringers [Lr] 1,000 ml IV 100 mls/hr cefTRIAXone [Rocephin] 1 gm Sodium Chloride 0.9% Minibag [Normal Saline 0.9% Minibag] 100 ml IV DAILY polyethylene glycoL 3350 [Miralax] 17 gm PO DAILY 03/06/21 14:00 Apixaban [Eliquis] 5 mg PO BID 03/07/21 05:00 BMP - BASIC METABOLIC PANEL [CHEM] DAILYLAB CBC - COMP BLD CT W/AUTO DIFF [HEME] DAILYLAB MAGNESIUM [CHEM] DAILYLAB 03/08/21 05:00 BMP - BASIC METABOLIC PANEL [CHEM] DAILYLAB CBC - COMP BLD CT W/AUTO DIFF [HEME] DAILYLAB 03/09/21 05:00 BMP - BASIC METABOLIC PANEL [CHEM] DAILYLAB CBC - COMP BLD CT W/AUTO DIFF [HEME] DAILYLAB 03/10/21 05:00 BMP - BASIC METABOLIC PANEL [CHEM] DAILYLAB CBC - COMP BLD CT W/AUTO DIFF [HEME] DAILYLAB Subjective - Subjective Nursing Reports: Confused Objective Vital Signs: Vital Signs - 24 hr 03/05/21 03/05/21 03/05/21 14:12 14:15 14:21 Temperature 36.8 C Heart Rate 69 65 66 Heart Rate [ Activity] Heart Rate [ Brachial] Heart Rate [ Sitting] Respiratory 16 22 22 Rate Blood Pressure 145/58 H 143/62 H 144/63 H Blood Pressure [Activity] Blood Pressure [Left Brachial artery] Blood Pressure [Right Brachial artery] Blood Pressure [Sitting] O2 Saturation 100 100 100 03/05/21 03/05/21 03/05/21 14:25 14:30 14:35 Temperature 36.7 C Heart Rate 69 74 74 Heart Rate [ Activity] Heart Rate [ Brachial] Heart Rate [ Sitting] Respiratory 24 25 H 24 Rate Blood Pressure 139/66 H 140/65 H 145/64 H Blood Pressure [Activity] Blood Pressure [Left Brachial artery] Blood Pressure [Right Brachial artery] Blood Pressure [Sitting] O2 Saturation 100 93 93 03/05/21 03/05/21 03/05/21 14:40 14:50 15:05 Temperature 36.4 C L Heart Rate 76 Heart Rate [ Activity] Heart Rate [ 70 71 Brachial] Heart Rate [ Sitting] Respiratory 19 13 12 Rate Blood Pressure 144/71 H Blood Pressure [Activity] Blood Pressure [Left Brachial artery] Blood Pressure 149/60 H 140/51 H [Right Brachial artery] Blood Pressure [Sitting] O2 Saturation 96 91 L 92 03/05/21 03/05/21 03/05/21 15:59 16:00 16:21 Temperature 36.4 C L Heart Rate 70 Heart Rate [ Activity] Heart Rate [ 75 72 Brachial] Heart Rate [ Sitting] Respiratory 14 18 Rate Blood Pressure Blood Pressure [Activity] Blood Pressure [Left Brachial artery] Blood Pressure 140/82 H 147/57 H [Right Brachial artery] Blood Pressure [Sitting] O2 Saturation 94 03/05/21 03/05/21 03/05/21 17:00 19:45 20:26 Temperature 36.4 C L Heart Rate 83 Heart Rate [ Activity] Heart Rate [ 73 86 Brachial] Heart Rate [ Sitting] Respiratory 18 20 Rate Blood Pressure Blood Pressure [Activity] Blood Pressure [Left Brachial artery] Blood Pressure 147/61 H 139/57 H [Right Brachial artery] Blood Pressure [Sitting] O2 Saturation 96 03/05/21 03/05/21 03/05/21 20:57 21:33 23:46 Temperature 36.5 C 36.5 C Heart Rate Heart Rate [ Activity] Heart Rate [ 81 89 76 Brachial] Heart Rate [ Sitting] Respiratory 18 16 20 Rate Blood Pressure Blood Pressure [Activity] Blood Pressure [Left Brachial artery] Blood Pressure 146/61 H 148/71 H 134/61 H [Right Brachial artery] Blood Pressure [Sitting] O2 Saturation 98 97 92 03/06/21 03/06/21 03/06/21 05:00 08:00 08:22 Temperature 36.3 C L 36.7 C 36.7 C Heart Rate Heart Rate [ Activity] Heart Rate [ 88 73 73 Brachial] Heart Rate [ Sitting] Respiratory 20 24 24 Rate Blood Pressure Blood Pressure [Activity] Blood Pressure [Left Brachial artery] Blood Pressure 128/61 143/61 H 143/61 H [Right Brachial artery] Blood Pressure [Sitting] O2 Saturation 90 L 94 94 03/06/21 03/06/21 03/06/21 11:23 11:27 11:35 Temperature 36.7 C 36.7 C Heart Rate Heart Rate [ 71 Activity] Heart Rate [ 65 65 Brachial] Heart Rate [ 64 Sitting] Respiratory 20 20 Rate Blood Pressure Blood Pressure 148/60 H [Activity] Blood Pressure 132/65 H 132/65 H [Left Brachial artery] Blood Pressure [Right Brachial artery] Blood Pressure 137/52 H [Sitting] O2 Saturation 96 96 Oxygen O2 Source Room air I&O (Last 24 Hrs): Intake and Output Totals x24h 03/04/21 03/05/21 03/06/21 23:59 23:59 23:59 Intake Total 200 1305 2005 Output Total 550 1350 475 Balance -350 -45 1530 General: Alert, No acute distress HEENT: Atraumatic Neck: Supple Lymphatic: no adenopathy Neuro: Alert, Non Focal Cardiovascular: Regular rate, Normal S1, Normal S2 Respiratory: Chest non-tender, No respiratory distress Abdomen: Normal bowel sounds, Soft Extremities: Normal pulses - Results Results: Laboratory Results WBC 11.5 x10^3/uL (4.8-10.8) H 03/06/21 04:31 RBC 4.07 10^6/uL (4.20-5.40) L 03/06/21 04:31 Hgb 12.2 g/dL (12.0-16.0) 03/06/21 04:31 Hct 37.1 % (37.0-47.0) 03/06/21 04:31 MCV 91.2 fL (81.0-99.0) 03/06/21 04:31 MCH 30.0 pg (27.0-31.0) 03/06/21 04:31 MCHC 32.9 g/dL (32.0-36.0) 03/06/21 04:31 RDW 12.4 % (12.0-15.0) 03/06/21 04:31 Plt Count 285 10^3/uL (130-450) 03/06/21 04:31 MPV 9.8 fL (7.9-10.8) 03/06/21 04:31 Neut # (Auto) 10.2 10^3/uL (1.5-6.6) H 03/06/21 04:31 Lymph # (Auto) 0.5 10^3/uL (1.5-3.5) L 03/06/21 04:31 [place] # (Auto) 0.6 10^3/uL (0.0-1.0) 03/06/21 04:31 Eos # (Auto) 0.2 10^3/uL (0.0-0.7) 03/06/21 04:31 Baso # (Auto) 0.0 10^3/uL (0.0-0.1) 03/06/21 04:31 Absolute Nucleated RBC 0.00 x10^3/uL 03/06/21 04:31 Nucleated RBC % 0.0 /100WBC 03/06/21 04:31 PT 15.2 secs (9.9-12.6) H 03/04/21 08:38 INR 1.4 (0.8-1.2) H 03/04/21 08:38 Sodium 139 mmol/L (135-145) 03/06/21 04:31 Potassium 4.5 mmol/L (3.5-5.0) 03/06/21 04:31 Chloride 104 mmol/L (101-111) 03/06/21 04:31 Carbon Dioxide 24 mmol/L (21-32) 03/06/21 04:31 Anion Gap 11.0 (6-13) 03/06/21 04:31 BUN 43 mg/dL (6-20) H 03/06/21 04:31 Creatinine 1.5 mg/dL (0.4-1.0) H 03/06/21 04:31 Estimated GFR (MDRD) 34 (>89) L 03/06/21 04:31 Glucose 168 mg/dL (70-100) H 03/06/21 04:31 Estimat Average Glucose 140 mg/dL (70-100) H 03/05/21 04:56 Hemoglobin A1c % 6.5 % (4.27-6.07) H 03/05/21 04:56 Uric Acid 7.8 mg/dL (2.6-7.2) H 03/05/21 04:56 Calcium 9.1 mg/dL (8.5-10.3) 03/06/21 04:31 Magnesium 2.1 mg/dL (1.7-2.8) 03/06/21 04:31 Total Bilirubin 1.1 mg/dL (0.2-1.0) H 03/04/21 08:38 AST 21 IU/L (10-42) 03/04/21 08:38 ALT 21 IU/L (10-60) 03/04/21 08:38 Alkaline Phosphatase 74 IU/L (42-121) 03/04/21 08:38 Troponin I High Sens 7.1 ng/L (2.3-14.8) 03/04/21 08:38 Total Protein 7.6 g/dL (6.7-8.2) 03/04/21 08:38 Albumin 3.8 g/dL (3.2-5.5) 03/04/21 08:38 Globulin 3.8 g/dL (2.1-4.2) 03/04/21 08:38 Albumin/Globulin Ratio 1.0 (1.0-2.2) 03/04/21 08:38 Lipase 56 U/L (22-51) H 03/04/21 08:38 Urine Color YELLOW 03/04/21 09:13 Urine Clarity HAZY (CLEAR) 03/04/21 09:13 Urine pH 6.5 PH (5.0-7.5) 03/04/21 09:13 Ur Specific [place] 1.010 (1.002-1.030) 03/04/21 09:13 Urine Protein 30 mg/dL (NEGATIVE) H 03/04/21 09:13 Urine Glucose (UA) NEGATIVE mg/dL (NEGATIVE) 03/04/21 09:13 Urine Ketones NEGATIVE mg/dL (NEGATIVE) 03/04/21 09:13 Urine Occult Blood TRACE-INTA (NEGATIVE) 03/04/21 09:13 Urine Nitrite NEGATIVE (NEGATIVE) 03/04/21 09:13 Urine Bilirubin NEGATIVE (NEGATIVE) 03/04/21 09:13 Urine Urobilinogen 0.2 (NORMAL) E.U./dL (NORMAL) 03/04/21 09:13 Ur Leukocyte Esterase TRACE (NEGATIVE) H 03/04/21 09:13 Urine RBC 6-10 /HPF (0-5) H 03/04/21 09:13 Urine WBC 11-25 /HPF (0-5) H 03/04/21 09:13 Ur Squamous Epith Cells RARE Squamous (<= Few) 03/04/21 09:13 Urine Bacteria Moderate /HPF (None Seen) H 03/04/21 09:13 Ur Microscopic Review INDICATED 03/04/21 09:13 Urine Culture Comments INDICATED 03/04/21 09:13 Nasal Adenovirus (PCR) NOT DETECTED 03/04/21 08:37 Nasal B. parapertussis DNA (PCR) NOT DETECTED 03/04/21 08:37 Nasal Coronavir 229E PCR NOT DETECTED 03/04/21 08:37 Nasal Coronavir HKU1 PCR NOT DETECTED 03/04/21 08:37 Nasal Coronavir NL63 PCR NOT DETECTED 03/04/21 08:37 Nasal Coronavir OC43 PCR NOT DETECTED 03/04/21 08:37 Nasal Enterovir/Rhinovir PCR NOT DETECTED 03/04/21 08:37 Nasal Influenza B PCR NOT DETECTED 03/04/21 08:37 Nasal Influenza A PCR NOT DETECTED 03/04/21 08:37 Nasal Parainfluen 1 PCR NOT DETECTED 03/04/21 08:37 Nasal Parainfluen 2 PCR NOT DETECTED 03/04/21 08:37 Nasal Parainfluen 3 PCR NOT DETECTED 03/04/21 08:37 Nasal Parainfluen 4 PCR NOT DETECTED 03/04/21 08:37 Nasal RSV (PCR) NOT DETECTED 03/04/21 08:37 Nasal B.pertussis DNA PCR NOT DETECTED 03/04/21 08:37 Nasal C.pneumoniae (PCR) NOT DETECTED 03/04/21 08:37 [place] Human Metapneumo PCR NOT DETECTED 03/04/21 08:37 Nasal M.pneumoniae (PCR) NOT DETECTED 03/04/21 08:37 Nasal SARS-CoV-2 (PCR) NOT DETECTED 03/04/21 08:37 - Procedures Procedures: Procedures REPLACEMENT OF LEFT LENS WITH SYNTH SUB, PERC APPROACH (11/19/17) REPLACEMENT OF RIGHT LENS WITH SYNTH SUB, PERC APPROACH (10/01/17) ABX Reporting Has patient been on IV antibiotics over the past 48 hours?: Yes Current Medications - Current Medications Current Medications: Active Medications Acetaminophen (Acetaminophen 325 Mg Tablet) 650 mg PO Q4HR PRN PRN Reason: Pain 1 to 4 Last Admin: 03/05/21 21:38 Dose: 650 mg Documented by: Albuterol (Albuterol Neb 2.5 Mg/3 Ml) 2.5 mg INH RTQ4H PRN PRN Reason: Wheezing Albuterol/Ipratropium (Ipratropium/Albuterol 3 Ml Neb) 3 ml INH RTQID PRN PRN Reason: Shortness of Air/Wheezing Alcohol (Ethyl Alcohol 62% Swab Ampule) 1 amp FERNANDA BID [facility] Last Admin: 03/06/21 09:29 Dose: 1 amp Documented by: Amlodipine Besylate (Amlodipine 5 Mg Tablet) 5 mg PO QPM [facility] Last Admin: 03/05/21 21:37 Dose: 5 mg Documented by: Apixaban (Apixaban 5 Mg Tablet) 5 mg PO BID [facility] Ascorbic Acid (Ascorbic Acid 500 Mg Tablet) 500 mg PO DAILY [facility] Last Admin: 03/06/21 09:26 Dose: 500 mg Documented by: Calcium Carbonate/Glycine (Calcium Carb (Oyster Shell) 500 Mg Tablet) 500 mg PO DAILY [facility] Last Admin: 03/06/21 09:27 Dose: 500 mg Documented by: Lactated Ringer's (Lr) 1,000 mls @ 100 mls/hr IV .Q10H [facility] Stop: 03/07/21 04:59 Last Admin: 03/06/21 11:04 Dose: 100 mls/hr Documented by: Ceftriaxone Sodium 1 gm/ (Sodium Chloride) 100 mls @ 200 mls/hr IV DAILY [facility] Last Infusion: 03/06/21 12:53 Dose: Infused Documented by: Insulin Aspart (Insulin Aspart 300 Unit/3 Ml Pen) 1 - 5 unit SUBQ 0800,1200,1700,2100 [facility]; Protocol Last Admin: 03/06/21 12:42 Dose: 1 unit Documented by: Ketorolac Tromethamine (Ketorolac 30 Mg/Ml Vial) 30 mg IVP Q6HR PRN PRN Reason: PAIN Stop: 03/09/21 11:11 Last Admin: 03/05/21 21:38 Dose: 30 mg Documented by: Lisinopril (Lisinopril 20 Mg Tablet) 20 mg PO DAILY [facility] Last Admin: 03/06/21 09:27 Dose: 20 mg Documented by: Loperamide HCl (Loperamide 2 Mg Capsule) 2 mg PO QID PRN PRN Reason: Diarrhea Last Admin: 03/04/21 14:04 Dose: 2 mg Documented by: Magnesium Oxide (Magnesium Oxide 400 Mg Tablet) 400 mg PO DAILYWM [facility] Last Admin: 03/06/21 09:28 Dose: 400 mg Documented by: [id number] Ethyl Esters ([place]-3 Acid Ethyl Esters 1 Gm Capsule) 1 gm PO DAILY [facility] Last Admin: 03/06/21 09:27 Dose: 1 gm Documented by: Ondansetron HCl (Ondansetron 4 Mg/2 Ml Vial) 4 mg IVP Q6HR PRN PRN Reason: Nausea / Vomiting Pantoprazole Sodium (Pantoprazole 40 Mg Tablet) 40 mg PO QDAC [facility] Last Admin: 03/06/21 06:30 Dose: 40 mg Documented by: Difluprednate 0.05% Ophth Drop [Durezol 0.05% Ophth Drop] 1 each EACHEYE BID [facility] Last Admin: 03/06/21 09:29 Dose: 1 each Documented by: Polyethylene Glycol (Polyethylene Glycol 3350 17 Gm Packet) 17 gm PO DAILY [facility] Last Admin: 03/06/21 09:26 Dose: 17 gm Documented by: Saccharomyces Boulardii (Saccharomyces Boulardii 250 Mg Capsule) 250 mg PO BIDWM [facility] Sodium Chloride (Sodium Chloride Flush 0.9% 10 Ml Syringe) 10 ml IVP PRN PRN PRN Reason: NEEDED PER PROVIDER ORDERS Last Admin: 03/05/21 21:40 Dose: 10 ml Documented by: Sodium Chloride (Sodium Chloride Flush 0.9% 10 Ml Syringe) 10 ml IVP 0100,0900,1700 [facility] Last Admin: 03/06/21 11:04 Dose: Not Given Documented by: Zinc Sulfate (Zinc Sulfate 220 Mg Capsule) 220 mg PO DAILY [facility] Last Admin: 03/06/21 09:27 Dose: 220 mg Documented by: Zolpidem Tartrate (Zolpidem 5 Mg Tablet) 5 mg PO QPM PRN PRN Reason: Insomnia amLODIPine [Norvasc] 5 mg PO DAILY PM 10/01/17 Acetaminophen 1,000 mg PO BID PRN 12/08/18 lisinopriL [Lisinopril] 20 mg PO DAILY PM 12/08/18 Ipratropium [place] [Atrovent Hfa] 12.9 gm IH BID 02/25/19 Apixaban [Eliquis] 5 mg PO BID 03/04/21 C,E,Zinc,Copper 11/[id number]/Lut [Ocuvite Adult 50 Plus Softgel] 1 cap PO DAILY 03/04/21 Calcium Carbonate [Calcium] 600 mg PO QPM 03/04/21 Cranberry Fruit Extract [Cranberry] 500 mg PO DAILY 03/04/21 Difluprednate 0.05% Ophth Drop [Durezol 0.05% Ophth Drop] 1 drops EACHEYE BID 03/04/21 Magnesium Oxide [Mag Ox] 400 mg PO QPM 03/04/21 [place]-3/Dha/Epa/Fish Oil [Fish Oil 1,000 mg Softgel] 2 cap PO DAILY 03/04/21 Ubidecarenone [Co Q-10] 200 mg PO DAILY 03/04/21 Zinc Gluconate [Zinc] 50 mg PO DAILY 03/04/21
--- NOTE | 2021-03-06 16:17 | PROVIDER PROGRESS NOTE ---
Subjective - General Admit Date: 03/04/21 Procedure Date: 03/05/21 Post Op Days: 1 Procedure Performed: Percutaneous pinning of a right hip fracture - Review of Systems Wound/Incisions: positive: Dressing dry and intact General: negative: Fever, Chills Pulmonary: negative: Shortness of breath Cardiovascular: negative: Chest pain Gastrointestinal: negative: Nausea, Vomiting Musculoskeletal: positive: Joint pain - Other Other Information/Narrative: Patient is a 75-year-old Female who is postop day 1 a percutaneous pinning of a right hip fracture performed by Dr Melchor Magdaleno on 03/05/2021. Patient's medical history includes COPD with an [id number] history, PAD, DM, vascular dementia. Patient has some controlled pain of the right hip she was able to participate in physical therapy and walk approximately 10 steps today. She denies signs or symptoms of infection or complication. Patient is being managed by the hospitalist the current plan is to look for SNF placement. Objective - Patient Data Reviewed Vital Signs: Yes Vital Signs: Vital Signs x48h Temp Pulse Pulse Pulse Resp BP BP 03/06/21 15:49 36.3 C L 68 18 149/63 H 03/06/21 11:35 71 64 148/60 H 03/06/21 11:27 36.7 C 65 20 132/65 H 03/06/21 11:23 36.7 C 65 20 132/65 H 03/06/21 08:22 36.7 C 73 24 BP BP Pulse Ox 03/06/21 15:49 92 03/06/21 11:35 137/52 H 03/06/21 11:27 96 03/06/21 11:23 96 03/06/21 08:22 143/61 H 94 Weight: Weight 03/04/21 03/05/21 03/06/21 23:59 23:59 23:59 Weight (kg) 70 kg 70 kg Intake & Output: Intake and Output Totals x24h 03/04/21 03/05/21 03/06/21 23:59 23:59 23:59 Intake Total 200 1305 2505 Output Total 550 1350 475 Balance -350 -45 2030 - Lab Results Lab Results: 03/06/21 04:31 03/06/21 04:31 Other Lab Results: Lab Results x24hrs 03/06/21 03/06/21 03/05/21 Range/Units 04:31 04:31 21:08 WBC 11.5 H (4.8-10.8) x10^3/uL RBC 4.07 L (4.20-5.40) 10^6/uL Hgb 12.2 12.5 (12.0-16.0) g/dL Hct 37.1 38.0 (37.0-47.0) % MCV 91.2 (81.0-99.0) fL MCH 30.0 (27.0-31.0) pg MCHC 32.9 (32.0-36.0) g/dL RDW 12.4 (12.0-15.0) % Plt Count 285 (130-450) 10^3/uL MPV 9.8 (7.9-10.8) fL Neut # (Auto) 10.2 H (1.5-6.6) 10^3/uL Lymph # (Auto) 0.5 L (1.5-3.5) 10^3/uL [place] # (Auto) 0.6 (0.0-1.0) 10^3/uL Eos # (Auto) 0.2 (0.0-0.7) 10^3/uL Baso # (Auto) 0.0 (0.0-0.1) 10^3/uL Absolute Nucleated RBC 0.00 x10^3/uL Nucleated RBC % 0.0 /100WBC Sodium 139 (135-145) mmol/L Potassium 4.5 (3.5-5.0) mmol/L Chloride 104 (101-111) mmol/L Carbon Dioxide 24 (21-32) mmol/L Anion Gap 11.0 (6-13) BUN 43 H (6-20) mg/dL Creatinine 1.5 H (0.4-1.0) mg/dL Estimated GFR (MDRD) 34 L (>89) Glucose 168 H (70-100) mg/dL Calcium 9.1 (8.5-10.3) mg/dL Magnesium 2.1 (1.7-2.8) mg/dL - Imaging Results Radiology Imaging: positive: See rad report (PACS images not available due to room server technical issues) - Current Medications Current Medications: Current Medications Generic Name Dose Route Start Last Admin Trade Name Freq PRN Reason Stop Dose Admin Acetaminophen 650 mg 03/04/21 11:02 03/05/21 21:38 Acetaminophen 325 Mg Tablet PO 650 mg Q4HR PRN Administration Pain 1 to 4 Alcohol 1 amp 03/05/21 21:00 03/06/21 09:29 Ethyl Alcohol 62% Swab Ampule FERNANDA 1 amp BID DEEPAK Administration Amlodipine Besylate 5 mg 03/04/21 21:00 03/05/21 21:37 Amlodipine 5 Mg Tablet PO 5 mg QPM DEEPAK Administration Ascorbic Acid 500 mg 03/05/21 09:00 03/06/21 09:26 Ascorbic Acid 500 Mg Tablet PO 500 mg DAILY DEEPAK Administration Calcium Carbonate/Glycine 500 mg 03/05/21 09:00 03/06/21 09:27 Calcium Carb (Oyster Shell) 500 Mg Tablet PO 500 mg DAILY DEEPAK Administration Lactated Ringer's 1,000 mls @ 100 mls/hr 03/06/21 09:00 03/06/21 11:04 Lr IV 03/07/21 04:59 100 mls/hr .Q10H DEEPAK Administration Ceftriaxone Sodium 1 gm/ 100 mls @ 200 mls/hr 03/06/21 09:00 03/06/21 12:53 Sodium Chloride IV Infused DAILY DEEPAK Infusion Insulin Aspart 1 - 5 unit 03/04/21 17:00 03/06/21 12:42 Insulin Aspart 300 Unit/3 Ml Pen SUBQ 1 unit 0800,1200,1700,2100 DEEPAK Administration Protocol Ketorolac Tromethamine 30 mg 03/04/21 11:12 03/05/21 21:38 Ketorolac 30 Mg/Ml Vial IVP 03/09/21 11:11 30 mg Q6HR PRN Administration PAIN Lisinopril 20 mg 03/05/21 09:00 03/06/21 09:27 Lisinopril 20 Mg Tablet PO 20 mg DAILY DEEPAK Administration Loperamide HCl 2 mg 03/04/21 13:49 03/04/21 14:04 Loperamide 2 Mg Capsule PO 2 mg QID PRN Administration Diarrhea Magnesium Oxide 400 mg 03/05/21 08:00 03/06/21 09:28 Magnesium Oxide 400 Mg Tablet PO 400 mg DAILYWM DEEPAK Administration Ccoer-1-Lszs Ethyl Esters 1 gm 03/05/21 09:00 03/06/21 09:27 [place]-3 Acid Ethyl Esters 1 Gm Capsule PO 1 gm DAILY DEEPAK Administration Pantoprazole Sodium 40 mg 03/06/21 07:00 03/06/21 06:30 Pantoprazole 40 Mg Tablet PO 40 mg QDAC DEEPAK Administration Difluprednate 0.05% 1 each 03/05/21 11:00 03/06/21 09:29 Ophth Drop [Durezol EACHEYE 1 each 0.05% Ophth Drop] BID DEEPAK Administration Polyethylene Glycol 17 gm 03/06/21 09:00 03/06/21 09:26 Polyethylene Glycol 3350 17 Gm Packet PO 17 gm DAILY DEEPAK Administration Sodium Chloride 10 ml 03/04/21 11:02 03/05/21 21:40 Sodium Chloride Flush 0.9% 10 Ml Syringe IVP 10 ml PRN PRN Administration NEEDED PER PROVIDER ORDERS Sodium Chloride 10 ml 03/04/21 17:00 03/06/21 11:04 Sodium Chloride Flush 0.9% 10 Ml Syringe IVP Not Given 0100,0900,1700 DEEPAK Zinc Sulfate 220 mg 03/05/21 09:00 03/06/21 09:27 Zinc Sulfate 220 Mg Capsule PO 220 mg DAILY DEEPAK Administration - Physical Exam Wound/Incisions: positive: Dressing dry and intact General Appearance: positive: No acute distress, Alert Skin: positive: Color nml, No rash, Warm, Dry Extremities: positive: Nml appearance Neurologic/Psychiatric: positive: Motor nml, Sensation nml ABX Reporting Has patient been on IV antibiotics over the past 48 hours?: Yes Impression/Plan - Problem List Problem List: Patient is a 75-year-old female who is postop day 1 of percutaneous pinning of the right hip after femoral neck fracture patient has a history that includes COPD with an 69-dkho-pboi history, PAD, DM, vascular dementia and is being managed by the hospitalist. Awaiting SNF placement. Patient is receiving PT OT he is responding well is weightbearing as tolerated in front wheeled walker.Patient Has absorbable sutures after surgery does not require any suture removal in the future. Patient is cleared from an orthopedic surgical standpoi nt for discharge just awaiting proper placement.Patient can follow-up at the [facility] on [address] phone number [phone]
[2021-03-06] MEDS: SACCHAROMYCES BOULARDII 250 MG CAPSULE PO SCH (17:03)
[2021-03-06] MEDS: ACETAMINOPHEN 325 MG TABLET PO PRN (18:10)
[2021-03-06] MEDS: APIXABAN 5 MG TABLET PO SCH (20:53)
[2021-03-06] MEDS: amLODIPine 5 MG TABLET PO SCH (20:53)
[2021-03-07] MEDS: KETOROLAC 30 MG/ML VIAL IVP PRN ×3 (01:44→23:46)
[2021-03-07] MEDS: ACETAMINOPHEN 325 MG TABLET PO PRN ×3 (01:50→13:24)
[2021-03-07] MEDS: SODIUM CHLORIDE FLUSH 0.9% 10 ML SYRINGE IVP SCH ×4 (01:53→23:39)
[2021-03-07 05:13] LABS: BASOPHILS # (AUTO) 0.1 10^3/uL (0.0-0.1); BASOPHILS % (AUTO) 1.1 %; EOSINOPHILS # (AUTO) 0.4 10^3/uL (0.0-0.7); EOSINOPHILS % (AUTO) 4.6 %; HCT - HEMATOCRIT 33.1 % (37.0-47.0); HGB - HEMOGLOBIN 10.9 g/dL (12.0-16.0); LYMPHOCYTES # (AUTO) 1.8 10^3/uL (1.5-3.5); LYMPHOCYTES % (AUTO) 19.8 %; MEAN CORPUSCULAR HEMOGLOBIN 30.1 pg (27.0-31.0); MEAN CORPUSCULAR HGB CONC 32.9 g/dL (32.0-36.0); MEAN CORPUSCULAR VOLUME 91.4 fL (81.0-99.0); MEAN PLATELET VOLUME 9.7 fL (7.9-10.8); MONOCYTES % (AUTO) 10.7 %; NEUTROPHILS # (AUTO) 5.7 10^3/uL (1.5-6.6); NEUTROPHILS % (AUTO) 63.5 %; PLT - PLATELET COUNT 254 10^3/uL (130-450); RED BLOOD COUNT 3.62 10^6/uL (4.20-5.40); RED CELL DISTRIBUTION WIDTH 12.7 % (12.0-15.0); WHITE BLOOD COUNT 8.9 x10^3/uL (4.8-10.8)
[2021-03-07 05:18] LABS: CALCIUM 8.5 mg/dL (8.5-10.3); CREATININE 1.5 mg/dL (0.4-1.0); POTASSIUM 4.4 mmol/L (3.5-5.0)
[2021-03-07] MEDS: PANTOPRAZOLE 40 MG TABLET PO SCH (05:52)
[2021-03-07] MEDS: INSULIN ASPART 300 UNIT/3 ML PEN SUBQ SCH ×4 (09:09→20:43)
[2021-03-07] MEDS: SACCHAROMYCES BOULARDII 250 MG CAPSULE PO SCH ×2 (09:09→16:22)
[2021-03-07] MEDS: APIXABAN 5 MG TABLET PO SCH ×2 (09:10→20:35)
[2021-03-07] MEDS: ZINC SULFATE 220 MG CAPSULE PO SCH (09:10)
[2021-03-07] MEDS: OMEGA-3 ACID ETHYL ESTERS 1 GM CAPSULE PO SCH (09:10)
[2021-03-07] MEDS: DOCUSATE SODIUM 250 MG CAPSULE PO SCH (09:10)
[2021-03-07] MEDS: CALCIUM CARB (OYSTER SHELL) 500 MG TABLET PO SCH (09:10)
[2021-03-07] MEDS: ethyl alcohoL 62% SWAB AMPULE NAS SCH ×2 (09:10→20:35)
[2021-03-07] MEDS: ASCORBIC ACID 500 MG TABLET PO SCH (09:11)
[2021-03-07] MEDS: MAGNESIUM OXIDE 400 MG TABLET PO SCH (09:11)
[2021-03-07] MEDS: lisinopriL 20 MG TABLET PO SCH (09:11)
[2021-03-07] MEDS: SENNA 8.6 MG TABLET PO SCH (09:11)
[2021-03-07] MEDS: polyethylene glycoL 3350 17 GM PACKET PO SCH (09:12)
[2021-03-07] MEDS: cefTRIAXone 1 GM in SODIUM CHLORIDE 0.9% MINIBAG 100 ML IV SCH (09:13)
[2021-03-07] MEDS: DIFLUPREDNATE 0.05% EACHEYE SCH ×2 (09:14→20:35)
[2021-03-07] MEDS: CHOLECALCIFEROL 25 MCG TABLET PO SCH (13:24)
--- NOTE | 2021-03-07 14:35 | PROVIDER PROGRESS NOTE ---
Assessment/Plan - Problem List (1) Closed right hip fracture Qualifiers: Encounter type: initial encounter Qualified Code(s): S72.001A - Fracture of unspecified part of neck of right femur, initial encounter for closed fracture Assessment/Plan: 03/07 per PT/OT report pt has good progress. continue PT/OT, pain control, consult with elementary school social worker for d/c plan 03/06 today is day 1 s/p right hip repair. per literature, Eliquis is favorably DVT prophylaxis after hip repair. Patient take Eliquis in the home. Continue pain control, continue PT and OT evaluation and treatment. consulted with Social work for disposition planning pt had closed Fracture of right hip. pt had hip repair on today. DVT Prophylaxis per surgeon, Continue pain control, Consult With PT and OT, Social work for disposition planning, Continue follow-up with surgeon's Recommendations. (2) Fall from ground level She admits to frequent falls and thinks it's from "being old". pt had fall at home but denies LOC. Daughter stated that she may have Parkinson's, is being worked up by a Neurologist. Daughter has installed railings, pads on floor, has Jane but mother never uses it. There is no shower in her unit. Patient had right hip fracture Due to fall. Patient had right hip repair on today. hold her Eliquis now because of her frequent falls. (3)UTI 03/07 WBC became normal arrange, switch to PO antibiotics, continue probiotics. 03/06 Patient did report dysuria. UA culture show positive E. coli, Patient also had slightly elevated WBC. We will give patient Rocephin and probiotics (4)DM2 A1C is 6.5, continue slide scale, glucose check and Hypoglycemia protocol (5)hx of COPD Stable, it is unlikely she has acute respiratory COPD exacerbation. continue Patient, albuterol as needed and DuoNeb, Supplemental of oxygen as needed. (6)hx of Afib she has SR now, HR is controlled at 71. we might hold her Eliquis after d/c because of her frequent falls (7)dementia stable as hx, poor clinic presentation but without behaviour disturbance. (8)HTN stable, Will resume home lisinopril and amlodipine, Continue vital signs monitor (9)CKD stage III Continue to 1.6, we will keep patient hydration, Continue laboratory chemist, avoid nephrotoxic agents - Current Meds Current Meds: Current Medications Generic Name Dose Route Start Last Admin Trade Name Pia PRN Reason Stop Dose Admin Acetaminophen 650 mg 03/04/21 11:02 03/07/21 13:24 Acetaminophen 325 Mg Tablet PO 650 mg Q4HR PRN Administration Pain 1 to 4 Alcohol 1 amp 03/05/21 21:00 03/07/21 09:10 Ethyl Alcohol 62% Swab Ampule FERNANDA 1 amp BID DEEPAK Administration Amlodipine Besylate 5 mg 03/04/21 21:00 03/06/21 20:53 Amlodipine 5 Mg Tablet PO 5 mg QPM DEEPAK Administration Apixaban 5 mg 03/06/21 21:00 03/07/21 09:10 Apixaban 5 Mg Tablet PO 5 mg BID DEEPAK Administration Ascorbic Acid 500 mg 03/05/21 09:00 03/07/21 09:11 Ascorbic Acid 500 Mg Tablet PO 500 mg DAILY DEEPAK Administration Calcium Carbonate/Glycine 500 mg 03/05/21 09:00 03/07/21 09:10 Calcium Carb (Oyster Shell) 500 Mg Tablet PO 500 mg DAILY DEEPAK Administration Cholecalciferol 50 mcg 03/07/21 12:00 03/07/21 13:24 Cholecalciferol 25 Mcg Tablet PO 50 mcg DAILY DEEPAK Administration Docusate Sodium 250 - 500 mg 03/07/21 09:00 03/07/21 09:10 Docusate Sodium 250 Mg Capsule PO 250 mg DAILY DEEPAK Administration Insulin Aspart 1 - 5 unit 03/04/21 17:00 03/07/21 13:12 Insulin Aspart 300 Unit/3 Ml Pen SUBQ Not Given 0800,1200,1700,2100 [facility] Protocol Ketorolac Tromethamine 30 mg 03/04/21 11:12 03/07/21 09:11 Ketorolac 30 Mg/Ml Vial IVP 03/09/21 11:11 30 mg Q6HR PRN Administration PAIN Lisinopril 20 mg 03/05/21 09:00 03/07/21 09:11 Lisinopril 20 Mg Tablet PO 20 mg DAILY DEEPAK Administration Loperamide HCl 2 mg 03/04/21 13:49 03/04/21 14:04 Loperamide 2 Mg Capsule PO 2 mg QID PRN Administration Diarrhea Magnesium Oxide 400 mg 03/05/21 08:00 03/07/21 09:11 Magnesium Oxide 400 Mg Tablet PO 400 mg DAILYWM DEEPAK Administration Ezjlz-8-Ykcw Ethyl Esters 1 gm 03/05/21 09:00 03/07/21 09:10 [place]-3 Acid Ethyl Esters 1 Gm Capsule PO 1 gm DAILY DEEPAK Administration Pantoprazole Sodium 40 mg 03/06/21 07:00 03/07/21 05:52 Pantoprazole 40 Mg Tablet PO 40 mg QDAC DEEPAK Administration Difluprednate 0.05% 1 each 03/05/21 11:00 03/07/21 09:14 Ophth Drop [Durezol EACHEYE 1 each 0.05% Ophth Drop] BID DEEPAK Administration Polyethylene Glycol 17 gm 03/06/21 09:00 03/07/21 09:12 Polyethylene Glycol 3350 17 Gm Packet PO 17 gm DAILY DEEPAK Administration Saccharomyces Boulardii 250 mg 03/06/21 17:00 03/07/21 09:09 Saccharomyces Boulardii 250 Mg Capsule PO 250 mg BIDWM DEEPAK Administration Senna 8.6 - 17.2 mg 03/07/21 09:00 03/07/21 09:11 Senna 8.6 Mg Tablet PO 8.6 mg DAILY DEEPAK Administration Sodium Chloride 10 ml 03/04/21 11:02 03/05/21 21:40 Sodium Chloride Flush 0.9% 10 Ml Syringe IVP 10 ml PRN PRN Administration NEEDED PER PROVIDER ORDERS Sodium Chloride 10 ml 03/04/21 17:00 03/07/21 09:14 Sodium Chloride Flush 0.9% 10 Ml Syringe IVP 10 ml 0100,0900,1700 DEEPAK Administration - Lab Result Fish Bone Diagrams: 03/07/21 04:33 03/07/21 04:33 - Additional Planning My Orders: My Active Orders 03/06/21 17:00 Saccharomyces Boulardii [Florastor] 250 mg PO BIDWM 03/06/21 21:00 Apixaban [Eliquis] 5 mg PO BID 03/07/21 09:00 Docusate Sodium 250Mg Capsule [Colace 250Mg Capsule] 250 - 500 mg PO DAILY Senna [Senokot] 8.6 - 17.2 mg PO DAILY 03/07/21 12:00 Cholecalciferol [Vitamin D3] 50 mcg PO DAILY 03/07/21 21:00 cefUROXime axetiL [Ceftin] 250 mg PO BID 03/08/21 05:00 BMP - BASIC METABOLIC PANEL [CHEM] DAILYLAB CBC - COMP BLD CT W/AUTO DIFF [HEME] DAILYLAB 03/09/21 05:00 BMP - BASIC METABOLIC PANEL [CHEM] DAILYLAB CBC - COMP BLD CT W/AUTO DIFF [HEME] DAILYLAB 03/10/21 05:00 BMP - BASIC METABOLIC PANEL [CHEM] DAILYLAB CBC - COMP BLD CT W/AUTO DIFF [HEME] DAILYLAB Subjective - Subjective Patient Reports: Resting Comfortably Objective Vital Signs: Vital Signs - 24 hr 03/06/21 03/06/21 03/06/21 15:49 21:26 23:34 Temperature 36.3 C L 36.7 C 36.4 C L Heart Rate [ 68 69 68 Brachial] Respiratory 18 16 20 Rate Blood Pressure 149/63 H 142/61 H [Left Brachial artery] Blood Pressure 152/88 H [Right Brachial artery] O2 Saturation 92 96 96 03/07/21 03/07/21 03/07/21 04:49 08:05 12:15 Temperature 36.3 C L 36.3 C L 36.4 C L Heart Rate [ 67 60 59 L Brachial] Respiratory 20 18 18 Rate Blood Pressure 115/62 [Left Brachial artery] Blood Pressure 145/60 H 138/59 H [Right Brachial artery] O2 Saturation 93 93 95 Oxygen O2 Source Room air I&O (Last 24 Hrs): Intake and Output Totals x24h 03/05/21 03/06/21 03/07/21 23:59 23:59 23:59 Intake Total 1305 3745 2108.00 Output Total 1350 1075 3000 Balance -45 2670 -892.00 General: Alert, Cooperative, No acute distress HEENT: Atraumatic Neck: Supple Lymphatic: no adenopathy Neuro: Alert, Non Focal Cardiovascular: Regular rate, Normal S1, Normal S2 Respiratory: Chest non-tender, No respiratory distress Abdomen: Normal bowel sounds, Soft, No tenderness Extremities: Normal pulses - Results Results: Laboratory Results WBC 8.9 x10^3/uL (4.8-10.8) 03/07/21 04:33 RBC 3.62 10^6/uL (4.20-5.40) L 03/07/21 04:33 Hgb 10.9 g/dL (12.0-16.0) L 03/07/21 04:33 Hct 33.1 % (37.0-47.0) L 03/07/21 04:33 MCV 91.4 fL (81.0-99.0) 03/07/21 04:33 MCH 30.1 pg (27.0-31.0) 03/07/21 04:33 MCHC 32.9 g/dL (32.0-36.0) 03/07/21 04:33 RDW 12.7 % (12.0-15.0) 03/07/21 04:33 Plt Count 254 10^3/uL (130-450) 03/07/21 04:33 MPV 9.7 fL (7.9-10.8) 03/07/21 04:33 Neut # (Auto) 5.7 10^3/uL (1.5-6.6) 03/07/21 04:33 Lymph # (Auto) 1.8 10^3/uL (1.5-3.5) 03/07/21 04:33 [place] # (Auto) 1.0 10^3/uL (0.0-1.0) 03/07/21 04:33 Eos # (Auto) 0.4 10^3/uL (0.0-0.7) 03/07/21 04:33 Baso # (Auto) 0.1 10^3/uL (0.0-0.1) 03/07/21 04:33 Absolute Nucleated RBC 0.00 x10^3/uL 03/07/21 04:33 Nucleated RBC % 0.0 /100WBC 03/07/21 04:33 PT 15.2 secs (9.9-12.6) H 03/04/21 08:38 INR 1.4 (0.8-1.2) H 03/04/21 08:38 Sodium 141 mmol/L (135-145) 03/07/21 04:33 Potassium 4.4 mmol/L (3.5-5.0) 03/07/21 04:33 Chloride 106 mmol/L (101-111) 03/07/21 04:33 Carbon Dioxide 28 mmol/L (21-32) 03/07/21 04:33 Anion Gap 7.0 (6-13) 03/07/21 04:33 BUN 41 mg/dL (6-20) H 03/07/21 04:33 Creatinine 1.5 mg/dL (0.4-1.0) H 03/07/21 04:33 Estimated GFR (MDRD) 34 (>89) L 03/07/21 04:33 Glucose 109 mg/dL (70-100) H 03/07/21 04:33 Estimat Average Glucose 140 mg/dL (70-100) H 03/05/21 04:56 Hemoglobin A1c % 6.5 % (4.27-6.07) H 03/05/21 04:56 Uric Acid 7.8 mg/dL (2.6-7.2) H 03/05/21 04:56 Calcium 8.5 mg/dL (8.5-10.3) 03/07/21 04:33 Magnesium 2.0 mg/dL (1.7-2.8) 03/07/21 04:33 Total Bilirubin 1.1 mg/dL (0.2-1.0) H 03/04/21 08:38 AST 21 IU/L (10-42) 03/04/21 08:38 ALT 21 IU/L (10-60) 03/04/21 08:38 Alkaline Phosphatase 74 IU/L (42-121) 03/04/21 08:38 Troponin I High Sens 7.1 ng/L (2.3-14.8) 03/04/21 08:38 Total Protein 7.6 g/dL (6.7-8.2) 03/04/21 08:38 Albumin 3.8 g/dL (3.2-5.5) 03/04/21 08:38 Globulin 3.8 g/dL (2.1-4.2) 03/04/21 08:38 Albumin/Globulin Ratio 1.0 (1.0-2.2) 03/04/21 08:38 Lipase 56 U/L (22-51) H 03/04/21 08:38 Urine Color YELLOW 03/04/21 09:13 Urine Clarity HAZY (CLEAR) 03/04/21 09:13 Urine pH 6.5 PH (5.0-7.5) 03/04/21 09:13 Ur Specific [place] 1.010 (1.002-1.030) 03/04/21 09:13 Urine Protein 30 mg/dL (NEGATIVE) H 03/04/21 09:13 Urine Glucose (UA) NEGATIVE mg/dL (NEGATIVE) 03/04/21 09:13 Urine Ketones NEGATIVE mg/dL (NEGATIVE) 03/04/21 09:13 Urine Occult Blood TRACE-INTA (NEGATIVE) 03/04/21 09:13 Urine Nitrite NEGATIVE (NEGATIVE) 03/04/21 09:13 Urine Bilirubin NEGATIVE (NEGATIVE) 03/04/21 09:13 Urine Urobilinogen 0.2 (NORMAL) E.U./dL (NORMAL) 03/04/21 09:13 Ur Leukocyte Esterase TRACE (NEGATIVE) H 03/04/21 09:13 Urine RBC 6-10 /HPF (0-5) H 03/04/21 09:13 Urine WBC 11-25 /HPF (0-5) H 03/04/21 09:13 Ur Squamous Epith Cells RARE Squamous (<= Few) 03/04/21 09:13 Urine Bacteria Moderate /HPF (None Seen) H 03/04/21 09:13 Ur Microscopic Review INDICATED 03/04/21 09:13 Urine Culture Comments INDICATED 03/04/21 09:13 Nasal Adenovirus (PCR) NOT DETECTED 03/04/21 08:37 Nasal B. parapertussis DNA (PCR) NOT DETECTED 03/04/21 08:37 Nasal Coronavir 229E PCR NOT DETECTED 03/04/21 08:37 Nasal Coronavir HKU1 PCR NOT DETECTED 03/04/21 08:37 Nasal Coronavir NL63 PCR NOT DETECTED 03/04/21 08:37 Nasal Coronavir OC43 PCR NOT DETECTED 03/04/21 08:37 Nasal Enterovir/Rhinovir PCR NOT DETECTED 03/04/21 08:37 Nasal Influenza B PCR NOT DETECTED 03/04/21 08:37 Nasal Influenza A PCR NOT DETECTED 03/04/21 08:37 Nasal Parainfluen 1 PCR NOT DETECTED 03/04/21 08:37 Nasal Parainfluen 2 PCR NOT DETECTED 03/04/21 08:37 Nasal Parainfluen 3 PCR NOT DETECTED 03/04/21 08:37 Nasal Parainfluen 4 PCR NOT DETECTED 03/04/21 08:37 Nasal RSV (PCR) NOT DETECTED 03/04/21 08:37 Nasal B.pertussis DNA PCR NOT DETECTED 03/04/21 08:37 Nasal C.pneumoniae (PCR) NOT DETECTED 03/04/21 08:37 Fernanda Human Metapneumo PCR NOT DETECTED 03/04/21 08:37 Nasal M.pneumoniae (PCR) NOT DETECTED 03/04/21 08:37 Nasal SARS-CoV-2 (PCR) NOT DETECTED 03/04/21 08:37 - Procedures Procedures: Procedures REPLACEMENT OF LEFT LENS WITH SYNTH SUB, PERC APPROACH (11/19/17) REPLACEMENT OF RIGHT LENS WITH SYNTH SUB, PERC APPROACH (10/01/17) ABX Reporting Has patient been on IV antibiotics over the past 48 hours?: Yes Current Medications - Current Medications Current Medications: Active Medications Acetaminophen (Acetaminophen 325 Mg Tablet) 650 mg PO Q4HR PRN PRN Reason: Pain 1 to 4 Last Admin: 03/07/21 13:24 Dose: 650 mg Documented by: Albuterol (Albuterol Neb 2.5 Mg/3 Ml) 2.5 mg INH RTQ4H PRN PRN Reason: Wheezing Albuterol/Ipratropium (Ipratropium/Albuterol 3 Ml Neb) 3 ml INH RTQID PRN PRN Reason: Shortness of Air/Wheezing Alcohol (Ethyl Alcohol 62% Swab Ampule) 1 amp FERNANDA BID [facility] Last Admin: 03/07/21 09:10 Dose: 1 amp Documented by: Amlodipine Besylate (Amlodipine 5 Mg Tablet) 5 mg PO QPM [facility] Last Admin: 03/06/21 20:53 Dose: 5 mg Documented by: Apixaban (Apixaban 5 Mg Tablet) 5 mg PO BID [facility] Last Admin: 03/07/21 09:10 Dose: 5 mg Documented by: Ascorbic Acid (Ascorbic Acid 500 Mg Tablet) 500 mg PO DAILY [facility] Last Admin: 03/07/21 09:11 Dose: 500 mg Documented by: Calcium Carbonate/Glycine (Calcium Carb (Oyster Shell) 500 Mg Tablet) 500 mg PO DAILY [facility] Last Admin: 03/07/21 09:10 Dose: 500 mg Documented by: Cefuroxime Axetil (Cefuroxime Axetil 250 Mg Tablet) 250 mg PO BID [facility] Cholecalciferol (Cholecalciferol 25 Mcg Tablet) 50 mcg PO DAILY [facility] Last Admin: 03/07/21 13:24 Dose: 50 mcg Documented by: Docusate Sodium (Docusate Sodium 250 Mg Capsule) 250 - 500 mg PO DAILY [facility] Last Admin: 03/07/21 09:10 Dose: 250 mg Documented by: Insulin Aspart (Insulin Aspart 300 Unit/3 Ml Pen) 1 - 5 unit SUBQ 0800,1200,1700,2100 [facility]; Protocol Last Admin: 03/07/21 13:12 Dose: Not Given Documented by: Ketorolac Tromethamine (Ketorolac 30 Mg/Ml Vial) 30 mg IVP Q6HR PRN PRN Reason: PAIN Stop: 03/09/21 11:11 Last Admin: 03/07/21 09:11 Dose: 30 mg Documented by: Lisinopril (Lisinopril 20 Mg Tablet) 20 mg PO DAILY [facility] Last Admin: 03/07/21 09:11 Dose: 20 mg Documented by: Loperamide HCl (Loperamide 2 Mg Capsule) 2 mg PO QID PRN PRN Reason: Diarrhea Last Admin: 03/04/21 14:04 Dose: 2 mg Documented by: Magnesium Oxide (Magnesium Oxide 400 Mg Tablet) 400 mg PO DAILYWM [facility] Last Admin: 03/07/21 09:11 Dose: 400 mg Documented by: Dcnrh-6-Chey Ethyl Esters ([place]-3 Acid Ethyl Esters 1 Gm Capsule) 1 gm PO KARELY LY [facility] Last Admin: 03/07/21 09:10 Dose: 1 gm Documented by: Ondansetron HCl (Ondansetron 4 Mg/2 Ml Vial) 4 mg IVP Q6HR PRN PRN Reason: Nausea / Vomiting Pantoprazole Sodium (Pantoprazole 40 Mg Tablet) 40 mg PO QDAC [facility] Last Admin: 03/07/21 05:52 Dose: 40 mg Documented by: Difluprednate 0.05% Ophth Drop [Durezol 0.05% Ophth Drop] 1 each EACHEYE BID [facility] Last Admin: 03/07/21 09:14 Dose: 1 each Documented by: Polyethylene Glycol (Polyethylene Glycol 3350 17 Gm Packet) 17 gm PO DAILY [facility] Last Admin: 03/07/21 09:12 Dose: 17 gm Documented by: Saccharomyces Boulardii (Saccharomyces Boulardii 250 Mg Capsule) 250 mg PO BIDWM [facility] Last Admin: 03/07/21 09:09 Dose: 250 mg Documented by: Senna (Senna 8.6 Mg Tablet) 8.6 - 17.2 mg PO DAILY [facility] Last Admin: 03/07/21 09:11 Dose: 8.6 mg Documented by: Sodium Chloride (Sodium Chloride Flush 0.9% 10 Ml Syringe) 10 ml IVP PRN PRN PRN Reason: NEEDED PER PROVIDER ORDERS Last Admin: 03/05/21 21:40 Dose: 10 ml Documented by: Sodium Chloride (Sodium Chloride Flush 0.9% 10 Ml Syringe) 10 ml IVP 0100,0900,1700 DEEPAK Last Admin: 03/07/21 09:14 Dose: 10 ml Documented by: Zolpidem Tartrate (Zolpidem 5 Mg Tablet) 5 mg PO QPM PRN PRN Reason: Insomnia amLODIPine [Norvasc] 5 mg PO DAILY PM 10/01/17 Acetaminophen 1,000 mg PO BID PRN 12/08/18 lisinopriL [Lisinopril] 20 mg PO DAILY PM 12/08/18 Ipratropium [place] [Atrovent Hfa] 12.9 gm IH BID 02/25/19 Apixaban [Eliquis] 5 mg PO BID 03/04/21 C,E,Zinc,Copper 11/Gopck8s/Lut [Ocuvite Adult 50 Plus Softgel] 1 cap PO DAILY 03/04/21 Calcium Carbonate [Calcium] 600 mg PO QPM 03/04/21 Cranberry Fruit Extract [Cranberry] 500 mg PO DAILY 03/04/21 Difluprednate 0.05% Ophth Drop [Durezol 0.05% Ophth Drop] 1 drops EACHEYE BID 03/04/21 Magnesium Oxide [Mag Ox] 400 mg PO QPM 03/04/21 [place]-3/Dha/Epa/Fish Oil [Fish Oil 1,000 mg Softgel] 2 cap PO DAILY 03/04/21 Ubidecarenone [Co Q-10] 200 mg PO DAILY 03/04/21 Zinc Gluconate [Zinc] 50 mg PO DAILY 03/04/21
[2021-03-07] MEDS: amLODIPine 5 MG TABLET PO SCH (20:35)
[2021-03-08] MEDS: ACETAMINOPHEN 325 MG TABLET PO PRN (04:05)
[2021-03-08] MEDS: KETOROLAC 30 MG/ML VIAL IVP PRN ×2 (04:05→05:54)
[2021-03-08 05:08] LABS: BASOPHILS # (AUTO) 0.1 10^3/uL (0.0-0.1); EOSINOPHILS # (AUTO) 0.6 10^3/uL (0.0-0.7); EOSINOPHILS % (AUTO) 7.5 %; HCT - HEMATOCRIT 36.3 % (37.0-47.0); HGB - HEMOGLOBIN 11.7 g/dL (12.0-16.0); LYMPHOCYTES # (AUTO) 1.3 10^3/uL (1.5-3.5); LYMPHOCYTES % (AUTO) 16.4 %; MEAN CORPUSCULAR HEMOGLOBIN 29.7 pg (27.0-31.0); MEAN CORPUSCULAR HGB CONC 32.2 g/dL (32.0-36.0); MEAN CORPUSCULAR VOLUME 92.1 fL (81.0-99.0); MEAN PLATELET VOLUME 9.4 fL (7.9-10.8); MONOCYTES # (AUTO) 0.9 10^3/uL (0.0-1.0); MONOCYTES % (AUTO) 10.9 %; NEUTROPHILS # (AUTO) 5.2 10^3/uL (1.5-6.6); PLT - PLATELET COUNT 265 10^3/uL (130-450); RED BLOOD COUNT 3.94 10^6/uL (4.20-5.40); RED CELL DISTRIBUTION WIDTH 12.8 % (12.0-15.0); WHITE BLOOD COUNT 8.2 x10^3/uL (4.8-10.8)
[2021-03-08] MEDS: PANTOPRAZOLE 40 MG TABLET PO SCH (05:54)
[2021-03-08 06:19] LABS: CALCIUM 8.6 mg/dL (8.5-10.3); CREATININE 1.4 mg/dL (0.4-1.0); POTASSIUM 4.8 mmol/L (3.5-5.0)
[2021-03-08] MEDS: MAGNESIUM OXIDE 400 MG TABLET PO SCH (08:09)
[2021-03-08] MEDS: SACCHAROMYCES BOULARDII 250 MG CAPSULE PO SCH (08:10)
[2021-03-08] MEDS: INSULIN ASPART 300 UNIT/3 ML PEN SUBQ SCH ×2 (08:10→13:27)
[2021-03-08] MEDS ORDERED: polyethylene glycoL 3350 17 GM PACKET PO SCH (09:00)
[2021-03-08] MEDS: APIXABAN 5 MG TABLET PO SCH (09:05)
[2021-03-08] MEDS: DOCUSATE SODIUM 250 MG CAPSULE PO SCH (09:05)
[2021-03-08] MEDS: CHOLECALCIFEROL 25 MCG TABLET PO SCH (09:10)
[2021-03-08] MEDS: CALCIUM CARB (OYSTER SHELL) 500 MG TABLET PO SCH (09:11)
[2021-03-08] MEDS: ASCORBIC ACID 500 MG TABLET PO SCH (09:13)
[2021-03-08] MEDS: OMEGA-3 ACID ETHYL ESTERS 1 GM CAPSULE PO SCH (09:14)
[2021-03-08] MEDS: lisinopriL 20 MG TABLET PO SCH (09:14)
[2021-03-08] MEDS: SODIUM CHLORIDE FLUSH 0.9% 10 ML SYRINGE IVP SCH (09:16)
[2021-03-08] MEDS: polyethylene glycoL 3350 17 GM PACKET PO SCH (09:17)
[2021-03-08] MEDS: DIFLUPREDNATE 0.05% EACHEYE SCH (09:21)
[2021-03-08] MEDS: ethyl alcohoL 62% SWAB AMPULE NAS SCH (09:26)
[2021-03-08] MEDS: SENNA 8.6 MG TABLET PO SCH (09:28)
--- NOTE | 2021-03-08 11:45 | Discharge Plan ---
"Discharge Plan for SNF / [facility] - Discharge Plan And Transition Orders Problem Reviewed?: Yes Disposition: 03 SNF DC/Xfer Condition: Stable Allergies and Adverse Reactions: Allergies Allergy/AdvReac Type Severity Reaction Status Date / Time codeine Allergy Nausea Verified 03/04/21 08:41 milk AdvReac Mild Cramps Verified 03/04/21 13:48 Health Concerns: s/p right hip repair, Diabetes, UTI Plan of Treatment: Patient had right hip repair in the hospital after she had mechanical fall. Patient may continue with PT and OT, pain control, follow-up with orthopedic surgeon in 2 weeks or earlier as needed. patient had Eliquis in her home medication, patient may continue use Eliquis for DVT prophylaxis now. Patient had A1c 6.5, but the patient had good glucose control in the hospital. Patient also had CKD stage III. At this time we will not prescribed medication or insulin for patient. Patient may continue to have diabetic management. pt is prescribed antibiotics for her UTI treatment course. Care Goals: Stabilization and improvement of patient's medical conditions - SNF / [facility] Transition Orders Admit to (Facility): [facility] Under the care of (Name): Angelito Reynolds Discharge Diagnosis: s/p right hip repair, fall, Dementia, UTI, diabetes, hx of COPD, hx of afib, HTN, CKD Medicare Certification Statement: I certify that [facility] care is medically necessary on a continuing basis for any of the conditions for which she/he is receiving care during hospitalization. Notify PCP of admission and forward orders to primary provider for signature. Weight on admission and: Daily Call PCP immediately if weight increases by: 2 kg Other Notification Orders: Call PCP immediately if patient develops dyspnea, chest pain/tightness or edema. House Bowel Program: Yes Additional Bowel Program Orders: If no BM after 2 days, nurse may give M.O.M. 30ml PO PRN and/or ducolax Supp 1 DC and/or SUZY 250mg P.O., and/or senna 1-2 tabs PO. On day 3 nurse may give repeat above order until residents constipation is resolved. Annual Influenza Vaccine (between Jan 02 and August 01): Yes Two-step PPD per [facility] [phone] or approved exception documents: Yes Treatments & Other Orders: Patient had right hip repair in the hospital after she had mechanical fall. Patient may continue with PT and OT, pain control, follow-up with orthopedic surgeon in 2 weeks or earlier as needed. patient had Eliquis in her home medication, patient may continue use Eliquis for DVT prophylaxis now. Patient had A1c 6.5, but the patient had good glucose control in the hospital. Patient also had CKD stage III. At this time we will not prescribed medication or insulin for patient. Patient may continue to have diabetic management. pt is prescribed antibiotics for her UTI treatment course. Medication Orders: PLEASE REFER TO THE DISCHARGE MEDICATION LIST. Insulin Orders?: No - Medications New Prescriptions: Acetaminophen [Tylenol] 650 mg PO Q4HR PRN #30 tablet PRN Reason: Pain 1 to 4 cefUROXime axetiL [Ceftin] 250 mg PO BID #6 tablet Saccharomyces Boulardii [Florastor] 250 mg PO BIDWM #6 cap Cholecalciferol [Vitamin D3] 50 mcg PO DAILY #30 tablet - Diet Type: Geriatric Texture: Regular Liquids: Thin May have monthly special meal: Yes - Therapies | Activity Therapy: Evaluation | Treat if indicated: PT, OT Rehabilitation Potential: Maximize functional status Activity: Activity as Tolerated"
[2021-03-08 12:01] LABS: B. PARAPERTUSSIS- RESP PCR PAN NOT DETECTED; B. PERTUSSIS- RESP PCR PANEL NOT DETECTED; C. PNEUMONIAE- RESP PCR PANEL NOT DETECTED; CORONAVIRUS 229E-RESP PCR NOT DETECTED; CORONAVIRUS HKU1-RESP PCR NOT DETECTED; CORONAVIRUS NL63-RESP PCR NOT DETECTED; CORONAVIRUS OC43-RESP PCR NOT DETECTED; HUMAN METAPNEUMOVIRUS NOT DETECTED; INFLUENZA A- RESP PCR PANEL NOT DETECTED; INFLUENZA B - RESP PCR PANEL NOT DETECTED; M. PNEUMONIAE- RESP PCR PANEL NOT DETECTED; PARAINFLUENZA VIRUS 1 NOT DETECTED; PARAINFLUENZA VIRUS 2 NOT DETECTED; PARAINFLUENZA VIRUS 3 NOT DETECTED; PARAINFLUENZA VIRUS 4 NOT DETECTED; RHINOVIRUS/ENTEROVIRUS NOT DETECTED; RSV- RESP PCR PANEL NOT DETECTED; SARS-CoV-2 -RESP PCR PANEL NOT DETECTED
--- NOTE | 2021-03-08 12:09 | DISCHARGE SUMMARY ---
"Discharge Summary Admit Date: 03/04/21 Discharge Date: 03/08/21 Discharging Provider: Tin Lehman Primary Care Provider: Maximilian Menjivar Condition at Discharge: Stable Discharge Disposition: SNF DC/Xfer Discharge Facility [facility]: [facility] - DIAGNOSES Discharge Diagnoses with Status of Each Condition: (1) Closed right hip fracture pt Had hip repair in hospital. pt is doing well after procedure. Patient is discharged to [facility], continue PT and OT, patient may see orthopedic surgeon in 2 weeks or as needed. Patient may use his home Eliquis as DVT prophylaxis. (2) Fall from ground level Patient is discharged to SNF,Continue PT and OT training and fall prevention. (3)UTI pt complain of dysuria. UA Found the patient had UTI. Patient was treated with antibiotics, her WBC become normal range. (4)DM2 A1C is 6.5. Patient had well controlled glucose level in the hospital. We may continue to have diet control of her diabetes. (5)hx of COPD Stable, resume Patient's home medication (6)hx of Afib she has SR now, HR is controlled at 71. we might hold her Eliquis after d/c from SNF because of her frequent falls with advanced dementia. (7)dementia advanced dementia, stable without behaviour disturbance. 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 Susan JONES on 03/04/21 This is a 75-year-old white female with a history of diabetes mellitus, now diet controlled, heavy past smoking history with COPD and no inhalers, dementia, probable Parkinson's disease who lives alone. The daughter lives on her property in an and checks on her every day. The daughter found her mother on the floor of her dwelling unit (in the basement of her house which is being renovated and the first and second floors are guided). She was complaining of pain in the right groin and a headache, having hit her head. There was no sy ncope, she can remember the entire event. The daughter was able to help the patient get up and guided her into a recliner and later the patient was able to walk to her bed. In the morning the patient experienced more pain and called 911 herself and was brought to the ED. Work-up in the ED shows a nondisplaced fracture of the hip. The patient is being admitted for hip surgery. Needs background information including the following: The patient falls frequently, approximately once a week. The patient lives in the basement of her house which has a cement floor and the family has covered it with rubber pads but it does not cover all the cement areas. The patient has lived in this situation for 13 years because the house above is guarded and has not had remodeling finished. The patient required a department health survey done in 2017, after coming home from [facility]. The [employer] employee was made aware that the basement has no running water, the patient uses bottled water for cooking, bathing and cleaning everything. The basement has rats running around. Despite this the [employer] employee felt it was habitable. The patient would like to be a full code as discussed with me today. - CONSULTS | PROCEDURES Consultations: Dr. Cordoba Procedures: Percutaneous cannulated screw fixation femoral neck fracture right hip utilizing Synthes 7.3 mm partially-threaded cancellous screws - HOSPITAL COURSE Hospital Course: Patient was admitted for fall evaluation and right hip injury. Patient had a right hip repair by orthopedic surgeon. Patient recover and doing well in the hospital after surgery. Patient had PT and OT evaluation and treatment. Patient complain of dysuria. Urinalysis show patient is positive UTI with bacteria E. coli infection. after Patient was treated with antibiotics, WBC become normal range. pt was Discharge to [facility] - ALLERGIES Allergies/Adverse Reactions: Allergies Allergy/AdvReac Type Severity Reaction Status Date / Time codeine Allergy Nausea Verified 03/04/21 08:41 milk AdvReac Mild Cramps Verified 03/04/21 13:48 - MEDICATIONS Home Medications: Ambulatory Orders Medication Instructions Recorded Confirmed amLODIPine [Norvasc] 5 mg PO DAILY PM 10/01/17 03/04/21 Acetaminophen 1,000 mg PO BID PRN 12/08/18 03/04/21 lisinopriL [Lisinopril] 20 mg PO DAILY PM 12/08/18 03/04/21 Ipratropium [place] [Atrovent Hfa] 12.9 gm IH BID 02/25/19 03/04/21 Apixaban [Eliquis] 5 mg PO BID 03/04/21 03/04/21 C,E,Zinc,Copper 11/Ceczq2u/Lut 1 cap PO DAILY 03/04/21 03/04/21 [Ocuvite Adult 50 Plus Softgel] Calcium Carbonate [Calcium] 600 mg PO QPM 03/04/21 03/04/21 Cranberry Fruit Extract [Cranberry] 500 mg PO DAILY 03/04/21 03/04/21 Difluprednate 0.05% Ophth Drop 1 drops EACHEYE BID 03/04/21 03/04/21 [Durezol 0.05% Ophth Drop] Magnesium Oxide [Mag Ox] 400 mg PO QPM 03/04/21 03/04/21 [place]-3/Dha/Epa/Fish Oil [Fish Oil 2 cap PO DAILY 03/04/21 03/04/21 1,000 mg Softgel] Ubidecarenone [Co Q-10] 200 mg PO DAILY 03/04/21 03/04/21 Zinc Gluconate [Zinc] 50 mg PO DAILY 03/04/21 03/04/21 Acetaminophen [Tylenol] 650 mg PO Q4HR PRN #30 tablet 03/08/21 Cholecalciferol [Vitamin D3] 50 mcg PO DAILY #30 tablet 03/08/21 Saccharomyces Boulardii [Florastor] 250 mg PO BIDWM #6 cap 03/08/21 cefUROXime axetiL [Ceftin] 250 mg PO BID #6 tablet 03/08/21 - PHYSICAL EXAM AT DISCHARGE General Appearance: positive: No acute distress, Alert. negative: Lethargic Eyes Bilateral: positive: Normal inspection, No lid inflammation ENT: positive: ENT inspection nml, No signs of dehydration. negative: Purulent nasal drainage Neck: positive: Nml inspection, Trachea midline. negative: Thyromegaly, Tracheal deviation Respiratory: positive: Chest non-tender, No respiratory distress. negative: Wheezes Cardiovascular: positive: Regular rate & rhythm, No murmur. negative: Tachycardia, Bradycardia, Systolic murmur, Diastolic murmur Peripheral Pulses: positive: 2+ Abdomen: positive: Non-tender, Nml bowel sounds, No distention. negative: Tenderness Back: positive: Nml inspection Skin: positive: Color nml, Warm, Dry. negative: Cyanosis Extremities: positive: Non-tender, Nml appearance. negative: Calf tenderness Neurologic/Psychiatric: positive: Motor nml, Sensation nml. negative: Weakness, Sensory loss, Facial droop, Slurred/abnml speech - LABS Result Diagrams: 03/08/21 04:44 03/08/21 05:53 - FOLLOW UP Follow Up: Patient had right hip repair in the hospital after she had mechanical fall. Patient may continue with PT and OT, pain control, follow-up with orthopedic surgeon in 2 weeks or earlier as needed. patient had Eliquis in her home medication, patient may continue use Eliquis for DVT prophylaxis now. Patient had A1c 6.5, but the patient had good glucose control in the hospital. Patient also had CKD stage III. At this time we will not prescribed medication or insulin for patient. Patient may continue to have diabetic management. pt is prescribed antibiotics for her UTI treatment course. - TIME SPENT Time Spent in Discharge (Minutes): 30"
[2021-03-08 14:21] VITALS: BP 131/95
--- NOTE | 2021-03-12 08:30 | XRAY Report ---
PROCEDURE: OR C-Arm Procedure INDICATIONS: RIGHT HIP PINNING TECHNIQUE: 3 intraoperative fluoroscopic images of right hip were obtained. COMPARISON: CT of right hip dated 03/04/2021. FINDINGS: Intraoperative fluoroscopic images shows internal fixation of right femoral neck with 3 fixation scre ws in place. A right hip alignment is near-anatomic. Total fluoroscopy time is 33 seconds. IMPRESSION: Fluoroscopy guidance was provided intraoperatively for internal fixation of right femoral neck. Reviewed by: Christofer Tyler MD on 03/12/2021 8:29 AM PST Approved by: Christofer Tyler MD on 03/12/2021 8:29 AM PST Station ID: [id number]
== END 2021-03-08 15:13 | DRG 481 ==
LOC: EDUNIT# → ED 08:28 → MS3 10:57
PROVIDERS: ADMIT Internal Medicine; ATTEND Nurse Practitioner Gerontology
PROC: 0QS634Z Reposition Right Upper Femur with Internal Fixation Device, Percutaneous Approach (ICD-10-PCS; principal; 2021-03-04)
DX: S72.011A Unspecified intracapsular fracture of right femur, initial encounter for closed fracture (principal); N39.0 Urinary tract infection, site not specified; W18.30XA Fall on same level, unspecified, initial encounter; S09.90XA Unspecified injury of head, initial encounter; S19.9XXA Unspecified injury of neck, initial encounter; Y92.010 Kitchen of single-family (private) house as the place of occurrence of the external cause; I12.9 Hypertensive chronic kidney disease with stage 1 through stage 4 chronic kidney disease, or unspecified chronic kidney disease; N18.30 Chronic kidney disease, stage 3 unspecified; E11.22 Type 2 diabetes mellitus with diabetic chronic kidney disease; E11.42 Type 2 diabetes mellitus with diabetic polyneuropathy; J44.9 Chronic obstructive pulmonary disease, unspecified; I48.91 Unspecified atrial fibrillation; N18.9 Chronic kidney disease, unspecified; F01.50 Vascular dementia, unspecified severity, without behavioral disturbance, psychotic disturbance, mood disturbance, and anxiety; K52.9 Noninfective gastroenteritis and colitis, unspecified; T38.3X6A Underdosing of insulin and oral hypoglycemic [antidiabetic] drugs, initial encounter; M19.90 Unspecified osteoarthritis, unspecified site; B96.20 Unspecified Escherichia coli [E. coli] as the cause of diseases classified elsewhere; H54.7 Unspecified visual loss; Z20.822 Contact with and (suspected) exposure to COVID-19; Z91.128 Patient's intentional underdosing of medication regimen for other reason; Z91.81 History of falling; Z79.01 Long term (current) use of anticoagulants; Z79.899 Other long term (current) drug therapy; Z87.01 Personal history of pneumonia (recurrent); Z86.711 Personal history of pulmonary embolism; Z87.891 Personal history of nicotine dependence
CPT/HCPCS: 36415; 70450; 71045; 72125; 73502; 73700; 80048; 80053; 81001; 83036; 83690; 83735; 84484; 84550; 85014; 85018; 85025; 85610; 87086; 87181; 87631; 93005; 94640; 97116; 97161; 97165; 97530; 99284; 99285; A9270; C1713; J7120; 0202U; 81003

== ENCOUNTER 2021-03-18 16:07 | Outpatient (CLI) | payer MEDICARE, MEDICAID ==
--- NOTE | 2021-03-18 19:17 | XRAY Report ---
PROCEDURE: Hip w/Pelvis 2-3V RT, x-ray INDICATIONS: ENCOUNTER FOR CLOSED FRACTURE TECHNIQUE: AP pelvis with lateral view(s) of the hip(s). COMPARISON: None. FINDINGS: Bones: No fractures or dislocations. Pelvic ring appears intact. No suspicious bony lesions. Righ t proximal femoral cannulated screws transfix a healing subcapital femoral neck fracture. Soft tissues: The visualized bowel gas pattern is normal. No suspicious soft tissue calcifications. Fallopian tube clips noted in the pelvis. Atherosclerotic vascular calcification noted. IMPRESSION: Internally stabilized subcapital right femoral neck fracture Reviewed by: Andres Tay MD on 03/18/2021 6:15 PM [place] Approved by: Andres Tay MD on 03/18/2021 6:15 PM [place] Station ID: [id number]
== END 2021-03-18 16:08 | disposition home or self-care (01) ==
LOC: DI 16:07
DX: S72.011D Unspecified intracapsular fracture of right femur, subsequent encounter for closed fracture with routine healing (principal)